=== PATIENT | male | born 1935 | race Caucasian/White ===

== ENCOUNTER 2017-01-03 06:16 | Inpatient (IN) | payer MEDICARE, BC ==
--- NOTE | 2017-01-03 06:34 | ED ---
General Adult HPI - General Source: EMS, RN notes reviewed Mode of arrival: EMS Limitations: no limitations <Bipin Reed - Last Filed: 01/03/17 07:06> <Wyatt Nichols - Last Filed: 01/03/17 08:20> - General Chief complaint: Syncope Stated complaint: Syncope Time Seen by Provider: 01/03/17 06:20 - History of Present Illness Initial comments: This is an 81-year-old male who presents emergency department with past medical history significant for having had a heart attack in the past. Patient also has a pacer defibrillator in place. Patient states today he was sitting in a chair became very lightheaded and thinks he passed out for a few seconds. Patient states he came to is extremely nauseated and vomited times one very small amount of what he describes as bile. Patient states he is still mildly nauseated but he did receive Zofran on the way in by the EMS crew. Patient denies any palpitations or chest pain. Patient denies any shortness of breath or difficulty breathing. Patient denies any abdominal pain. Patient denies nausea vomiting or diarrhea recently. Patient states she was sweating at the time. Patient denies any lightheadedness or dizziness currently. Patient denies any headache patient denies any numbness or weakness. (Bipin Reed) - Related Data Home Medications Medication Instructions Recorded Confirmed Cholecalciferol [Vitamin D3] 1,000 unit PO DAILY 06/15/15 01/03/17 Esomeprazole Magnesium [NexIUM] 40 mg PO DAILY 06/15/15 01/03/17 Etanercept [Enbrel] 50 mg SQ WE 06/15/15 01/03/17 Leflunomide [Arava] 20 mg PO DAILY 06/15/15 01/03/17 Losartan [Cozaar] 50 mg PO DAILY 06/15/15 01/03/17 Multivitamins, Thera [Multivitamin 1 tab PO DAILY 06/15/15 01/03/17 (formulary)] [place]-3 Fatty Acids/Fish Oil [Fish 1 cap PO DAILY 06/15/15 01/03/17 Oil 1,000 mg Softgel] Simvastatin [Zocor] 40 mg PO HS 06/15/15 01/03/17 Apixaban [Eliquis] 2.5 mg PO BID 01/03/17 01/03/17 Aspirin EC [Ecotrin Low Dose] 81 mg PO DAILY 01/03/17 01/03/17 Carvedilol [Coreg] 6.25 mg PO BID 01/03/17 01/03/17 Furosemide [Lasix] 20 mg PO Q48H 01/03/17 01/03/17 Previous Rx's Medication Instructions Recorded Spironolactone [Aldactone] 25 mg PO DAILY #90 tablet 10/12/15 Allergies Allergy/AdvReac Type Severity Reaction Status Date / Time Penicillins Allergy Rash/Hives Verified 01/03/17 07:57 Review of Systems ROS Other: All systems not noted in ROS Statement are negative. <Bipin Reed - Last Filed: 01/03/17 07:06> ROS Other: All systems not noted in ROS Statement are negative. <Wyatt Nichols - Last Filed: 01/03/17 08:20> ROS Statement: Those systems with pertinent positive or pertinent negative responses have been documented in the HPI. Past Medical History Past Medical History: Hyperlipidemia, Hypertension Additional Past Medical History / Comment(s): arthritis; HYPOGLYCEMIA History of Any Multi-Drug Resistant Organisms: None Reported Past Surgical History: Orthopedic Surgery Additional Past Surgical History / Comment(s): varicose vein Past Anesthesia/Blood Transfusion Reactions: No Reported Reaction Past Psychological History: No Psychological Hx Reported Smoking Status: Never smoker Past Alcohol Use History: None Reported Past Drug Use History: None Reported - Past Family History Father History Unknown: Yes Mother Family Medical History: Cancer Additional Family Medical History / Comment(s): unsure what kind Brother(s) Family Medical History: Cancer, Coronary Artery Disease (CAD) Additional Family Medical History / Comment(s): pacemaker. from heart complications. unsure what kind <Bipin Reed - Last Filed: 01/03/17 07:06> General Exam Limitations: no limitations <Bipin Reed - Last Filed: 01/03/17 07:06> <Wyatt Nichols - Last Filed: 01/03/17 08:20> - General Exam Comments Initial Comments: GENERAL: Patient is well-developed and well-nourished. Patient is nontoxic and well- hydrated and is in mild distress. ENT: Neck is soft and supple. No significant lymphadenopathy is noted. Oropharynx is clear. Moist mucous membranes. Neck has full range of motion without eliciting any pain. EYES: The sclera were anicteric and conjunctiva were pink and moist. Extraocular movements were intact and pupils were equal round and reactive to light. Eyelids were unremarkable. PULMONARY: Patient's crackles in the left base. states he has asbestosis CARDIOVASCULAR: There is a regular rate and rhythm without any murmurs gallops or rubs. ABDOMEN: Soft and nontender with normal bowel sounds. No palpable organomegaly was noted. There is no palpable pulsatile mass. SKIN: Skin is clear with no lesions or rashes and otherwise unremarkable. NEUROLOGIC: Patient is alert and oriented x3. Cranial nerves II through XII are grossly intact. Motor and sensory are also intact. Normal speech, volume and content. Symmetrical smile. MUSCULOSKELETAL: Normal extremities with adequate strength and full range of motion. No lower extremity swelling or edema. No calf tenderness. LYMPHATICS: No significant lymphadenopathy is noted PSYCHIATRIC: Normal psychiatric evaluation. Normal interpersonal interactions appears functionally intact in deals appropriately with others. No signs of depression. No signs of anxiety. (Bipin Reed) Medical Decision Making - Lab Data Result diagrams: 01/03/17 06:38 <Bipin Reed - Last Filed: 01/03/17 07:06> - Lab Data Result diagrams: 01/03/17 06:38 01/03/17 06:38 - Radiology Data Radiology results: image reviewed (Chest x-ray shows interstitial prominence. Previous chest x-ray reviewed with some similar findings.) <Wyatt Nichols - Last Filed: 01/03/17 08:20> - Medical Decision Making EKG shows atrial paced rhythm at 50 bpm GA interval is 208 6 QRS is 166 QT intervals 538 QTC is 490. Patient's EKG shows no ST segment elevation or depression. Patient has a right bundle branch block. Dr. Nichols be taking over the care of this patient at 7 AM (Bipin Reed) Patient reevaluated and resting comfortably in bed with no complaints at this time. Patient and family updated on results and plan. Case discussed in detail with Dr. Cerda, who will admit for Dr. Gray. (Wyatt Nichols) - Lab Data Lab Results 01/03/17 01/03/17 01/03/17 Range/Units 06:38 06:38 06:38 WBC 3.5 L (3.8-10.6) k/uL RBC 4.11 L (4.30-5.90) m/uL Hgb 13.3 (13.0-17.5) gm/dL Hct 41.8 (39.0-53.0) % MCV 101.8 H (80.0-100.0) fL MCH 32.4 (25.0-35.0) pg MCHC 31.8 (31.0-37.0) g/dL RDW 13.8 (11.5-15.5) % Plt Count 139 L (150-450) k/uL Neutrophils % 52 % Lymphocytes % 28 % Monocytes % 9 % Eosinophils % 7 % Basophils % 1 % Neutrophils # 1.8 (1.3-7.7) k/uL Lymphocytes # 1.0 (1.0-4.8) k/uL Monocytes # 0.3 (0-1.0) k/uL Eosinophils # 0.2 (0-0.7) k/uL Basophils # 0.0 (0-0.2) k/uL Macrocytosis Slight PT (9.0-12.0) sec INR (<1.1) APTT (22.0-30.0) sec Sodium 141 (137-145) mmol/L Potassium 4.1 (3.5-5.1) mmol/L Chloride 107 (98-107) mmol/L Carbon Dioxide 26 (22-30) mmol/L Anion Gap 8 mmol/L BUN 23 H (9-20) mg/dL Creatinine 0.80 (0.66-1.25) mg/dL Est GFR (MDRD) Af Amer >60 (>60 ml/min/1.73 sqM) Est GFR (MDRD) Non-Af >60 (>60 ml/min/1.73 sqM) Glucose 126 H (74-99) mg/dL Calcium 9.4 (8.4-10.2) mg/dL Magnesium 1.9 (1.6-2.3) mg/dL Total Bilirubin 0.6 (0.2-1.3) mg/dL AST 23 (17-59) U/L ALT 32 (21-72) U/L Alkaline Phosphatase 56 (38-126) U/L Total Creatine Kinase 111 (55-170) U/L CK-MB (CK-2) 2.9 H* (0.0-2.4) ng/mL CK-MB (CK-2) Rel Index 2.6 Troponin I <0.012 (0.000-0.034) ng/mL Total Protein 6.6 (6.3-8.2) g/dL Albumin 3.3 L (3.5-5.0) g/dL 01/03/17 Range/Units 06:38 WBC (3.8-10.6) k/uL RBC (4.30-5.90) m/uL Hgb (13.0-17.5) gm/dL Hct (39.0-53.0) % MCV (80.0-100.0) fL MCH (25.0-35.0) pg MCHC (31.0-37.0) g/dL RDW (11.5-15.5) % Plt Count (150-450) k/uL Neutrophils % % Lymphocytes % % Monocytes % % Eosinophils % % Basophils % % Neutrophils # (1.3-7.7) k/uL Lymphocytes # (1.0-4.8) k/uL Monocytes # (0-1.0) k/uL Eosinophils # (0-0.7) k/uL Basophils # (0-0.2) k/uL Macrocytosis PT 10.8 (9.0-12.0) sec INR 1.1 (<1.1) APTT 22.2 (22.0-30.0) sec Sodium (137-145) mmol/L Potassium (3.5-5.1) mmol/L Chloride (98-107) mmol/L Carbon Dioxide (22-30) mmol/L Anion Gap mmol/L BUN (9-20) mg/dL Creatinine (0.66-1.25) mg/dL Est GFR (MDRD) Af Amer (>60 ml/min/1.73 sqM) Est GFR (MDRD) Non-Af (>60 ml/min/1.73 sqM) Glucose (74-99) mg/dL Calcium (8.4-10.2) mg/dL Magnesium (1.6-2.3) mg/dL Total Bilirubin (0.2-1.3) mg/dL AST (17-59) U/L ALT (21-72) U/L Alkaline Phosphatase (38-126) U/L Total Creatine Kinase (55-170) U/L CK-MB (CK-2) (0.0-2.4) ng/mL CK-MB (CK-2) Rel Index Troponin I (0.000-0.034) ng/mL Total Protein (6.3-8.2) g/dL Albumin (3.5-5.0) g/dL Disposition <Bipin Reed - Last Filed: 01/03/17 07:06> Decision Time: 08:20 <Wyatt Nichols - Last Filed: 01/03/17 08:20> Clinical Impression: Syncope Disposition: ADMITTED IP TO THIS [facility] Referrals: Faith Gray MD [Primary Care Provider] - 1-2 days
[2017-01-03 06:58] LABS: Basophils % (A) 1 %; CH 32.1; CHCM 31.7; Eosinophils # (A) 0.2 k/uL (0-0.7); Eosinophils % (A) 7 %; HCT 41.8 % (39.0-53.0); HDW 2.48; HGB 13.3 gm/dL (13.0-17.5); Luc # (Auto) 0.13; Luc % (Auto) 4; Lymphocytes % (A) 28 %; MCH 32.4 pg (25.0-35.0); MCHC 31.8 g/dL (31.0-37.0); MCV 101.8 fL (80.0-100.0); Macrocytosis Slight; Mean Platelet Volume 6.7; Monocytes # (A) 0.3 k/uL (0-1.0); Monocytes % (A) 9 %; Neutrophils # (A) 1.8 k/uL (1.3-7.7); Neutrophils % (A) 52 %; RBC 4.11 m/uL (4.30-5.90); RDW 13.8 % (11.5-15.5); WBC 3.5 k/uL (3.8-10.6); WBC (Perox) 3.25
[2017-01-03 07:12] LABS: ALT 32 U/L (21-72); AST 23 U/L (17-59); Alkaline Phosphatase 56 U/L (38-126); Anion Gap 8 mmol/L; Blood Urea Nitrogen 23 mg/dL (9-20); Calcium 9.4 mg/dL (8.4-10.2); Carbon Dioxide 26 mmol/L (22-30); Chloride 107 mmol/L (98-107); Glucose 126 mg/dL (74-99); INR 1.1 (<1.1); Magnesium 1.9 mg/dL (1.6-2.3); Non-African American GFR(MDRD) >60 (>60 ml/min/1.73 sqM); Partial Thromboplastin Time 22.2 sec (22.0-30.0); Potassium 4.1 mmol/L (3.5-5.1); Prothrombin Time 10.8 sec (9.0-12.0); Sodium 141 mmol/L (137-145); Total Bilirubin 0.6 mg/dL (0.2-1.3); Total Protein 6.6 g/dL (6.3-8.2)
--- NOTE | 2017-01-03 07:15 | XR ---
EXAM: XR Chest, 2 Views CLINICAL HISTORY: Syncope, history of defib TECHNIQUE: Frontal and lateral views of the chest. COMPARISON: Chest x-ray 10/12/15 FINDINGS: Lungs: Low lung volumes. Vascular interstitial prominence. Bibasilar lung atelectasis/airspace disease. Pleural space: No pleural effusion or pneumothorax. Heart: Stable cardiomegaly. Mediastinum: Unremarkable. Bones/joints: Unremarkable. Tubes, lines and devices: Stable pacemaker. IMPRESSION: Vascular and interstitial prominence, May be edema or infiltrate. Consider CHF.
[2017-01-03 07:23] LABS: Creatine Kinase 111 U/L (55-170)
[2017-01-03 07:35] LABS: Troponin I <0.012 ng/mL (0.000-0.034)
[2017-01-03 07:44] LABS: Creatine Kinase MB 2.9 ng/mL (0.0-2.4)
[2017-01-03] MEDS ORDERED: NALOXONE 0.4 MG/ML 1 ML VIAL IV PRN (08:20)
[2017-01-03] MEDS: SODIUM CHLORIDE 0.9% 1,000 ML IV SCH (09:04)
--- NOTE | 2017-01-03 09:06 | CT ---
EXAMINATION TYPE: CT brain wo con DATE OF EXAM: 01/03/2017 COMPARISON: NONE INDICATION: Syncope DLP: 1049 mGycm, Automated exposure control for dose reduction was used. CONTRAST: None CT of the brain is performed utilizing 3 mm thick sections through the posterior fossa and 3 mm thick sections through the remaining calvarium. Study is performed within 24 hours of arrival to the hosp [facility]. No abnormal hyperdensity is present to suggest an acute intracranial hemorrhage. No mass lesion is evident. No acute infarcts are evident. There is some mild periventricular white matter hypodensity, likely on the basis of chronic white matter ischemic changes. This may be slightly more focal just superior to the posterior left lateral ventricle body within the centrum semiovale.. Ventricles and sulci are prominent for the patient age. Paranasal sinuses and mastoid air cells within the [id number] are clear. IMPRESSIONS: 1. Chronic appearing white matter ischemic changes with mild age-related atrophy.
--- NOTE | 2017-01-03 10:49 | P.CRDCN ---
History of Present Illness Consult date: 01/03/17 Requesting physician: Virgen Mai Consult reason: sycope Chief complaint: Syncope History of present illness: This is a pleasant 81-year-old gentleman who follows regularly with Dr. Guevara in the office. Patient has a known history of paroxysmal atrial fibrillation, ischemic cardiomyopathy with prior AICD implantation, hyperlipidemia, coronary artery disease, hypertension, psoriasis, peripheral vascular disease, most recent cardiac catheterization was performed in May 2015 which revealed moderate disease in the mid right coronary artery, mild intimal disease in the LAD, severely impaired left ventricular systolic function medical therapy advised at that time. Most recent echo was performed in November 2015 which revealed an ejection fraction of 35%. Patient states he's been doing fairly well at home overall. This morning the patient was sitting on the edge of his bed, getting dressed, he states he leaned forward to pull his socks on, sat back up and became dizzy, he states that at that time he passed out, he does feel that he was out completely and yet somewhat new still what he was doing. Patient did not lose bowel or bladder function, he was alert and oriented 3 upon wakening. EKG on arrival here showed atrial paced rhythm with a heart rate of 50. Chest x-ray revealed vascular and interstitial prominence. Possible CHF. CAT scan of the brain revealed chronic appearing white matter change with mild age-related atrophy. Blood pressure 120/70 with a heart rate in the 50s. 94% on room air. White blood cell count 3.5, hgb 13.3 , platelet count 139, potassium 4.1, BUN 23, creatinine 0.8. First troponin is negative, BNP 235. Blood pressure on arrival 118/70 with a heart rate in the 50s. Blood pressure this morning 120/70. Past Medical History Past Medical History: Coronary Artery Disease (CAD), Heart Failure, GI Bleed, Hyperlipidemia, Hypertension, Myocardial Infarction (PA), Osteoarthritis (OA), Rheumatoid Arthritis (RA) Additional Past Medical History / Comment(s): HYPOGLYCEMIA, ischemic cardiomyopathy/mild CHF, varicosities, presyncope, RA-pt receives Inbrel on Tue. Last Myocardial Infarction Date:: 2008 History of Any Multi-Drug Resistant Organisms: None Reported Past Surgical History: AICD, Heart Catheterization, Heart Catheterization With Stent, Pacemaker Additional Past Surgical History / Comment(s): AICD/pacer 09/2015, 11/2008 PCI with stent, 2014 cardiac cath, colonoscopy. Past Anesthesia/Blood Transfusion Reactions: No Reported Reaction Date of Last Stent Placement:: 2008 Type of Cardiac Device: Permanent Pacemaker, AICD Device Placement Date:: 10/12/15 Past Psychological History: No Psychological Hx Reported Additional Psychological History / Comment(s): Pt resides with his spouse. He is independent. Smoking Status: Former smoker Past Alcohol Use History: None Reported Additional Past Alcohol Use History / Comment(s): Pt states he smoked for a couple of years ([id number]) Past Drug Use History: None Reported - Past Family History Father History Unknown: Yes Mother Family Medical History: Cancer Additional Family Medical History / Comment(s): Mother had ovarian cancer followed by lung cancer. Brother(s) Family Medical History: Cancer, Coronary Artery Disease (CAD) Additional Family Medical History / Comment(s): pacemaker. from heart complications. unsure what kind Medications and Allergies Home Medications Medication Instructions Recorded Confirmed Type Cholecalciferol [Vitamin D3] 1,000 unit PO DAILY 06/15/15 01/03/17 History Esomeprazole Magnesium [NexIUM] 40 mg PO DAILY 06/15/15 01/03/17 History Etanercept [Enbrel] 50 mg SQ WE 06/15/15 01/03/17 History Leflunomide [Arava] 20 mg PO DAILY 06/15/15 01/03/17 History Losartan [Cozaar] 50 mg PO DAILY 06/15/15 01/03/17 History Multivitamins, Thera [Multivitamin 1 tab PO DAILY 06/15/15 01/03/17 History (formulary)] [place]-3 Fatty Acids/Fish Oil [Fish 1 cap PO DAILY 06/15/15 01/03/17 History Oil 1,000 mg Softgel] Simvastatin [Zocor] 40 mg PO HS 06/15/15 01/03/17 History Apixaban [Eliquis] 2.5 mg PO BID 01/03/17 01/03/17 History Aspirin EC [Ecotrin Low Dose] 81 mg PO DAILY 01/03/17 01/03/17 History Carvedilol [Coreg] 6.25 mg PO BID 01/03/17 01/03/17 History Furosemide [Lasix] 20 mg PO Q48H 01/03/17 01/03/17 History Allergies Allergy/AdvReac Type Severity Reaction Status Date / Time Penicillins Allergy Rash/Hives Verified 01/03/17 07:57 Physical Exam Vitals: Vital Signs Temp Pulse Pulse Resp BP BP Pulse Ox 01/03/17 09:50 96.6 F L 66 20 119/71 94 L 01/03/17 09:04 96.7 F L 58 L 18 119/75 95 01/03/17 07:52 96.8 F L 56 L 18 108/74 99 01/03/17 06:32 54 L 01/03/17 06:17 97.1 F L 56 L 18 118/79 94 L Intake and Output 01/02/17 01/03/17 01/03/17 22:59 06:59 14:59 Other: Weight 90.718 kg PHYSICAL EXAMINATION: HEENT: Head is atraumatic, normocephalic. Pupils equal, round. Neck is supple. There is no elevated jugular venous pressure. HEART EXAMINATION: Heart S1 and S2 systolic murmur is heard. CHEST EXAMINATION: Lungs are clear to auscultation and precussion. No chest wall tenderness is noted on palpation or with deep breathing. ABDOMEN: Soft, nontender. Bowel sounds are heard. No organomegaly noted. EXTREMITIES: 2+ peripheral pulses with no evidence of peripheral edema and no calf tenderness noted. NEUROLOGIC patient is awake, alert and oriented -3. . Results 01/03/17 06:38 01/03/17 06:38 Cardiac Enzymes 01/03/17 01/03/17 Range/Units 06:38 06:38 AST 23 (17-59) U/L CK-MB (CK-2) 2.9 H* (0.0-2.4) ng/mL Troponin I <0.012 (0.000-0.034) ng/mL Coagulation 01/03/17 Range/Units 06:38 PT 10.8 (9.0-12.0) sec APTT 22.2 (22.0-30.0) sec CBC 01/03/17 Range/Units 06:38 WBC 3.5 L (3.8-10.6) k/uL RBC 4.11 L (4.30-5.90) m/uL Hgb 13.3 (13.0-17.5) gm/dL Hct 41.8 (39.0-53.0) % Plt Count 139 L (150-450) k/uL Comprehensive Metabolic Panel 01/03/17 Range/Units 06:38 Sodium 141 (137-145) mmol/L Potassium 4.1 (3.5-5.1) mmol/L Chloride 107 (98-107) mmol/L Carbon Dioxide 26 (22-30) mmol/L BUN 23 H (9-20) mg/dL Creatinine 0.80 (0.66-1.25) mg/dL Glucose 126 H (74-99) mg/dL Calcium 9.4 (8.4-10.2) mg/dL AST 23 (17-59) U/L ALT 32 (21-72) U/L Alkaline Phosphatase 56 (38-126) U/L Total Protein 6.6 (6.3-8.2) g/dL Albumin 3.3 L (3.5-5.0) g/dL Current Medications Generic Name Dose Route Start Last Admin Trade Name Freq PRN Reason Stop Dose Admin Sodium Chloride 1,000 mls @ 20 mls/hr 01/03/17 08:30 01/03/17 09:04 Saline 0.9% IV 20 mls/hr .Q24H [place] Administration Naloxone HCl 0.2 mg 01/03/17 08:20 Narcan IV Q2M PRN Opioid Reversal Intake and Output 01/02/17 01/03/17 01/03/17 22:59 06:59 14:59 Other: Weight 90.718 kg 01/03/17 06:38 01/03/17 06:38 EKG Interpretations (text) EKG shows atrial paced rhythm with slow ventricular response Assessment and Plan Plan: Assessment and plan #1 syncope, rule out cardiac causes. #2 ischemic cardio myopathy with prior AICD implantation #3 hypertension #4 hyperlipidemia #5 paroxysmal atrial fibrillation #6 coronary artery disease with prior LAD stenting in 2008,a cardiac catheterization was performed here in 2014 medical therapy was advised. #7 psoriasis Plan We will check orthostatic blood pressure and heart rate every shift. Check free T4 and TSH. We will also interrogate the patient's AICD. Resume Aldactone , Zocor, Cozaar, Ecotrin 81 mg, and Eliquis. Obtain echocardiogram with Doppler study. Further recommendations to follow. DNP note has been reviewed, I agree with a documented findings and plan of care. Patient was seen and examined.
--- NOTE | 2017-01-03 11:11 | P.PN ---
Progress Note - Text this is an addendum to the dictated cardiology consultation. The patient has a known history of CAD, ischemic cardiomyopathy and paroxysmal atrial fibrillation who presented with a presyncopal episode occurred after he bent down to put on his socks. He had no chest discomfort, his breathing has been stable and he had no discharge from his device. On presentation he is in sinus mechanism and there is no documented arrhythmia. His level of activity has been stable without any change or limitations. His physical examination shows clear lungs with sinus mechanism and minimal edema His EKG and his enzymes are unchanged. His presentation most likely represents a presyncopal episode from orthostatic hypotension, associated with nausea and diaphoresis and most likely exacerbated by the hot weather. We will interrogate his device and obtain an echocardiogram with Doppler and depending on the findings further recommendations will be made. Thank you for this consult we will follow with you.
--- NOTE | 2017-01-03 12:23 | P.HPIM ---
History of Present Illness H&P Date: 01/03/17 Chief Complaint: Almost passed out This is a 81-year-old with a known past medical history of ischemic cardiomyopathy with an EF of 30-35% with AICD placement. He also has a history of hypertension, hyperlipidemia, rheumatoid arthritis paroxysmal atrial fibrillation, coronary artery disease with cardiac stent, myocardial infarction , and psoriasis. Patient presents to the emergency room this morning after having a near syncopal episode. Patient reports he's been feeling well that up and took a shower. He said down to put on his socks. He bent over to the socks on became very dizzy and lightheaded and thoughts that he was going to pass out. He sat back up. The dizziness subsided. However he became very nauseous and had sweating. He was concerned and came into the emergency room for evaluation. Cardiology and neurology have been consulted. A computed tomography scan of the brain was completed showing no acute changes. There is chronic-appearing white matter ischemic changes with mild age related atrophy. EKG shows an atrial paced rhythm with prolonged AV conduction. Right bundle shane block. Troponin was negative 1. Cardiology is following. A echo and carotid ultrasound have been ordered. He is on telemetry. His AICD is scheduled for interrogation today. And orthostatics will be checked. Patient reports this episode occurred before he took his morning medications. He had not yet. He at times does have episodes of hypoglycemia he is not a diabetic. His glucose on admission was 126. Patient denies any fever or chills. Denies any vomiting. Denies any burning with urination. Denies any change in bowel movements. Denies any cough or sore throat. Review of Systems Please refer to HPI otherwise unremarkable Past Medical History Past Medical History: Coronary Artery Disease (CAD), Heart Failure, GI Bleed, Hyperlipidemia, Hypertension, Myocardial Infarction ([place]), Osteoarthritis (OA), Rheumatoid Arthritis (RA) Additional Past Medical History / Comment(s): HYPOGLYCEMIA, ischemic cardiomyopathy/mild CHF, varicosities, presyncope, RA-pt receives Inbrel on Tue. Asbestosis exposure Last Myocardial Infarction Date:: 2008 History of Any Multi-Drug Resistant Organisms: None Reported Past Surgical History: AICD, Heart Catheterization, Heart Catheterization With Stent, Pacemaker Additional Past Surgical History / Comment(s): AICD/pacer 09/2015, 11/2008 PCI with stent, 2014 cardiac cath, colonoscopy. Past Anesthesia/Blood Transfusion Reactions: No Reported Reaction Date of Last Stent Placement:: 2008 Type of Cardiac Device: Permanent Pacemaker, AICD Device Placement Date:: 10/12/15 Past Psychological History: No Psychological Hx Reported Additional Psychological History / Comment(s): Pt resides with his spouse. He is independent. Smoking Status: Former smoker Past Alcohol Use History: None Reported Additional Past Alcohol Use History / Comment(s): Pt states he smoked for a couple of years ([id number]) Past Drug Use History: None Reported - Past Family History Father History Unknown: Yes Mother Family Medical History: Cancer Additional Family Medical History / Comment(s): Mother had ovarian cancer followed by lung cancer. Brother(s) Family Medical History: Cancer, Coronary Artery Disease (CAD) Additional Family Medical History / Comment(s): pacemaker. from heart complications. unsure what kind Medications and Allergies Home Medications Medication Instructions Recorded Confirmed Type Cholecalciferol [Vitamin D3] 1,000 unit PO DAILY 06/15/15 01/03/17 History Esomeprazole Magnesium [NexIUM] 40 mg PO DAILY 06/15/15 01/03/17 History Etanercept [Enbrel] 50 mg SQ WE 06/15/15 01/03/17 History Leflunomide [Arava] 20 mg PO DAILY 06/15/15 01/03/17 History Losartan [Cozaar] 50 mg PO DAILY 06/15/15 01/03/17 History Multivitamins, Thera [Multivitamin 1 tab PO DAILY 06/15/15 01/03/17 History (formulary)] [place]-3 Fatty Acids/Fish Oil [Fish 1 cap PO DAILY 06/15/15 01/03/17 History Oil 1,000 mg Softgel] Simvastatin [Zocor] 40 mg PO HS 06/15/15 01/03/17 History Apixaban [Eliquis] 2.5 mg PO BID 01/03/17 01/03/17 History Aspirin EC [Ecotrin Low Dose] 81 mg PO DAILY 01/03/17 01/03/17 History Carvedilol [Coreg] 6.25 mg PO BID 01/03/17 01/03/17 History Furosemide [Lasix] 20 mg PO Q48H 01/03/17 01/03/17 History Allergies Allergy/AdvReac Type Severity Reaction Status Date / Time Penicillins Allergy Rash/Hives Verified 01/03/17 07:57 Physical Exam Vitals: Vital Signs Temp Pulse Pulse Resp BP BP Pulse Ox 01/03/17 11:43 97 F L 58 L 18 109/74 96 01/03/17 09:50 96.6 F L 66 18 119/71 94 L 01/03/17 09:04 96.7 F L 58 L 18 119/75 95 01/03/17 07:52 96.8 F L 56 L 18 108/74 99 01/03/17 06:32 54 L 01/03/17 06:17 97.1 F L 56 L 18 118/79 94 L Intake and Output 01/02/17 01/03/17 01/03/17 22:59 06:59 14:59 Other: Weight 90.718 kg Head normocephalic Neck supple no JVD no carotid bruits Lungs crackles at bases Heart regular rate and rhythm S1-S2, no rub or gallop Abdomen is soft nontender nondistended positive bowel sounds no hepatosplenomegaly Extremities no edema Neuro alert and orientated to 3 Results CBC & Chem 7: 01/03/17 06:38 01/03/17 06:38 Labs: Abnormal Lab Results - Last 24 Hours (Table) 01/03/17 01/03/17 01/03/17 Range/Units 06:38 06:38 06:38 WBC 3.5 L (3.8-10.6) k/uL RBC 4.11 L (4.30-5.90) m/uL MCV 101.8 H (80.0-100.0) fL Plt Count 139 L (150-450) k/uL BUN 23 H (9-20) mg/dL Glucose 126 H (74-99) mg/dL CK-MB (CK-2) 2.9 H* (0.0-2.4) ng/mL Albumin 3.3 L (3.5-5.0) g/dL Thrombosis Risk Factor Assmnt - Choose All That Apply Any of the Below Risk Factors Present?: Yes Each Factor Represents 1 point: Obesity (BMI >25), Varicose veins Other Risk Factors: Yes Each Risk Factor Represents 3 Points: Age 75 years or older Other congenital or acquired thrombophilia - If yes, enter type in comment: No Thrombosis Risk Factor Assessment Total Risk Factor Score: 5 Thrombosis Risk Factor Assessment Level: High Risk Assessment and Plan Plan: 1. Near syncopal episode: Computed tomography scan of the brain showing no acute changes. Echo and carotid ultrasound of been ordered. Continue with telemetry monitoring. Cardiology and neurology have been consulted. Agree with checking for orthostatic blood pressure 2. History of ischemic cardiomyopathy with an EF of 30-35% status post AICD. Patient scheduled for AICD interrogation today 3. History of paroxysmal atrial fibrillation anticoagulated with Eliquis 4. Essential hypertension: Blood pressure stable continue current medications 5. Hyperlipidemia 6. Rheumatoid arthritis 7. Coronary artery disease with previous cardiac stents and myocardial infarction 8. GERD on Nexium at home GI prophylaxis Protonix and DVT prophylaxis Eliquis Time with Patient: Greater than 30 (Greater than 50% of the total time spent in counseling and coordination of care.I performed an examination of the patient and discussed their management with the physician [employer]. I have reviewed the Physician [employer]'s notes and agree with the documented findings and plan of care)
--- NOTE | 2017-01-03 12:27 | US ---
EXAMINATION TYPE: US carotid duplex BILAT DATE OF EXAM: 01/03/2017 COMPARISON: NONE CLINICAL HISTORY: syncope. EXAM MEASUREMENTS: RIGHT: Peak Systolic Velocity (PSV) cm/sec ----- Right CCA: 45.0 ----- Right ICA: 53.9 ----- Right ECA: 50.2 ICA/CCA ratio: 1.2 RIGHT: End Diastole cm/sec ----- Right CCA: 12.2 ----- Right ICA: 26.7 ----- Right ECA: 15.1 LEFT: Peak Systolic Velocity (PSV) cm/sec ----- Left CCA: 42.4 ----- Left ICA: 59.8 ----- Left ECA: 44.3 ICA/CCA ratio: 1.4 LEFT: End Diastole cm/sec ----- Left CCA: 14.7 ----- Left ICA: 59.8 ----- Left ECA: 44.3 VERTEBRALS (direction of flow): Right Vertebral: Antegrade Left Vertebral: Antegrade Moderate plaque, no significant velocity elevations IMPRESSION: 1. Moderate atherosclerotic plaque bilaterally with no significant hemodynamic stenosis.
[2017-01-03] MEDS: ASPIRIN 81 MG CHEW PO SCH (13:08)
[2017-01-03] MEDS: APIXABAN 2.5 MG TABLET PO SCH ×2 (13:08→21:45)
[2017-01-03] MEDS: CARVEDILOL 6.25 MG TAB PO SCH ×2 (13:09→18:33)
[2017-01-03] MEDS: PANTOPRAZOLE 40 MG TABLET PO SCH (13:09)
[2017-01-03] MEDS: LEFLUNOMIDE 20 MG TAB PO SCH (13:09)
[2017-01-03] MEDS: SPIRONOLACTONE 25 MG TAB PO SCH (13:09)
[2017-01-03] MEDS: LOSARTAN 50 MG TAB PO SCH (17:05)
[2017-01-03] MEDS ORDERED: ATORVASTATIN 20 MG TAB PO SCH (21:00)
--- NOTE | 2017-01-03 23:23 | CONS ---
DATE OF CONSULTATION: 01/03/2017 CHIEF COMPLAINT: Presyncope. HISTORY OF PRESENT ILLNESS: The patient is a pleasant 81-year-old male who is being evaluated by the neurology service per the request of Dr. Mai for a near-syncopal episode. The patient states that he had just finished showering, and when he bent forward to pull his socks on, he felt very dizzy. He describes the dizziness as a lightheaded and disequilibrium sensation without any significant vertigo. When he sat back up, his symptoms slowly resolved, but then he felt somewhat nauseous and started sweating, which prompted his visit to the emergency room. At the time of my evaluation, he is lying in his bed and appears to be in no acute distress. He denies any recurrence of any syncopal or pre-syncopal episodes since his arrival. A CT scan of the brain was done which showed generalized atrophy and small-vessel ischemic changes. His carotid Doppler showed no hemodynamically significant stenosis. His CBC showed mild leukopenia at 3.5 and mild thrombocytopenia at 139. His comprehensive metabolic profile, cardiac enzymes and TSH were normal. PAST MEDICAL HISTORY: 1. Coronary artery disease. 2. Heart failure. 3. History of gastrointestinal bleeding. 4. Dyslipidemia. 5. Atrial fibrillation. 6. Myocardial infarction. 7. Hypertension. 8. Arthritis. 9. Ischemic cardiomyopathy. 10. Pacemaker implantation. 11. Coronary artery stent placement. SOCIAL HISTORY: The patient is a former smoker. He denies any alcohol or drug use. FAMILY HISTORY: Positive for cancer and heart disease. HOME MEDICATIONS: Reviewed in the chart. ALLERGIES: PENICILLIN. REVIEW OF SYSTEMS: As mentioned above and otherwise negative. PHYSICAL EXAM: Vital signs show a temperature of 97.6, pulse 56, respiration 20, blood pressure 110/67. Orthostatics were done and it showed some orthostatic hypotension with a drop in the systolic blood pressure from 119 to 106 and a drop in the diastolic blood pressure from 74 to 58. GENERAL APPEARANCE: The patient is a well-developed elderly male who appears to be in no acute distress. HEENT: Normocephalic, atraumatic. No facial asymmetry is seen. Neck is supple with no masses felt. CARDIOVASCULAR: Bradycardic rate with a normal rhythm. ABDOMEN: Nontender, nondistended. EXTREMITIES: No edema or clubbing. NEUROLOGICAL EXAM: The patient is awake and oriented x3. Speech and language are normal. Strength is full in all 4 extremities. Sensory exam is normal to light touch in all 4 extremities. No facial asymmetry is seen on cranial nerve testing. IMPRESSION: 1. Pre-syncopal spell. 2. Atrial fibrillation. 3. Bradycardia. 4. Orthostatic hypotension. RECOMMENDATIONS: The patient's symptoms are more consistent with cardiovascular etiology. His dizziness occurred with positional change and he still has some orthostatic hypotension at this time. Cardiology has been consulted, as the patient does have multiple comorbidities with cardiac issues and he does have a pacemaker defibrillator implanted. An EEG has been ordered. I will continue to follow with you. Further recommendations to follow. Thank you for allowing me to participate in the care of your patient. If you have any questions, please feel free to contact me.
[2017-01-04 06:17] LABS: Aty Lym Flag Slight; CHCM 31.7; HCT 39.1 % (39.0-53.0); HDW 2.47; HGB 12.2 gm/dL (13.0-17.5); MCH 31.8 pg (25.0-35.0); MCHC 31.3 g/dL (31.0-37.0); MCV 101.4 fL (80.0-100.0); Macrocytosis Slight; Mean Platelet Volume 6.6; RBC 3.86 m/uL (4.30-5.90); RDW 13.9 % (11.5-15.5); WBC 3.9 k/uL (3.8-10.6); WBC (Perox) 3.75
[2017-01-04 06:23] LABS: ALT 28 U/L (21-72); AST 21 U/L (17-59); Alkaline Phosphatase 45 U/L (38-126); Anion Gap 6 mmol/L; Blood Urea Nitrogen 18 mg/dL (9-20); Carbon Dioxide 25 mmol/L (22-30); Chloride 108 mmol/L (98-107); Glucose 93 mg/dL (74-99); Non-African American GFR(MDRD) >60 (>60 ml/min/1.73 sqM); Potassium 4.3 mmol/L (3.5-5.1); Sodium 139 mmol/L (137-145); Total Bilirubin 0.7 mg/dL (0.2-1.3); Total Protein 6.1 g/dL (6.3-8.2)
[2017-01-04] MEDS: PANTOPRAZOLE 40 MG TABLET PO SCH (06:37)
[2017-01-04] MEDS: CARVEDILOL 6.25 MG TAB PO SCH (06:37)
[2017-01-04] MEDS ORDERED: PANTOPRAZOLE 40 MG TABLET PO SCH (07:30)
[2017-01-04 07:48] LABS: Add Differential Manual Differential
[2017-01-04 07:51] LABS: Manual Review Performed; Nucleated Red Blood Cells 0 /100 WBC (0-0); Total Cells Counted 100
[2017-01-04] MEDS ORDERED: CHOLECALCIFEROL 1,000 UNIT TAB PO SCH (09:00)
[2017-01-04] MEDS ORDERED: FUROSEMIDE 20 MG TAB PO SCH (09:00)
[2017-01-04] MEDS: SODIUM CHLORIDE 0.9% 1,000 ML IV SCH (09:18)
[2017-01-04] MEDS: APIXABAN 2.5 MG TABLET PO SCH (09:28)
[2017-01-04] MEDS: ASPIRIN 81 MG CHEW PO SCH (09:28)
[2017-01-04] MEDS: SPIRONOLACTONE 25 MG TAB PO SCH (09:29)
[2017-01-04] MEDS: LOSARTAN 50 MG TAB PO SCH (09:29)
[2017-01-04] MEDS: LEFLUNOMIDE 20 MG TAB PO SCH (09:29)
[2017-01-04 10:41] VITALS: RESP 16
[2017-01-04] MEDS ORDERED: MULTIVITAMINS, THERA 1 EACH TAB PO SCH (12:00)
--- NOTE | 2017-01-04 13:21 | P.DS ---
Providers Date of admission: 01/03/17 08:20 Expected date of discharge: 01/04/17 Attending physician: Virgen Mai Consults: 01/03/17 08:21 Consult Physician Urgent Consulting Provider: Zuhair Guevara Consult Reason/Comments: syncope Do you want consulting provider notified?: Yes Consult Physician Urgent Consulting Provider: Alvin Mackey Consult Reason/Comments: syncope Do you want consulting provider notified?: Yes Primary care physician: [facility] Course: Diagnoses on discharge 1. Near syncopal episode: Computed tomography scan of the brain showing no acute changes. Echo and carotid ultrasound of been ordered. Continue with telemetry monitoring. Cardiology and neurology have been consulted. Agree with checking for orthostatic blood pressure Patient had AICD interrogated no abnormality seen he was cleared by cardiology for discharge 2. History of ischemic cardiomyopathy with an EF of 30-35% status post AICD. Patient scheduled for AICD interrogation today 3. History of paroxysmal atrial fibrillation anticoagulated with Eliquis 4. Essential hypertension: Blood pressure stable continue current medications 5. Hyperlipidemia 6. Rheumatoid arthritis 7. Coronary artery disease with previous cardiac stents and myocardial infarction 8. GERD on Nexium at home Hospital course This is a 81-year-old with a known past medical history of ischemic cardiomyopathy with an EF of 30-35% with AICD placement. He also has a history of hypertension, hyperlipidemia, rheumatoid arthritis paroxysmal atrial fibrillation, coronary artery disease with cardiac stent, myocardial infarction , and psoriasis. Patient presents to the emergency room this morning after having a near syncopal episode. Patient reports he's been feeling well that up and took a shower. He said down to put on his socks. He bent over to the socks on became very dizzy and lightheaded and thoughts that he was going to pass out. He sat back up. The dizziness subsided. However he became very nauseous and had sweating. He was concerned and came into the emergency room for evaluation. Cardiology and neurology have been consulted. A computed tomography scan of the brain was completed showing no acute changes. There is chronic-appearing white matter ischemic changes with mild age related atrophy. EKG shows an atrial paced rhythm with prolonged AV conduction. Right bundle shane block. Troponin was negative 1. Cardiology is following. A echo and carotid ultrasound have been ordered. He is on telemetry. His AICD was interrogated and there was no abnormality seen he was cleared by cardiology for discharge patient was also evaluated by neurology Dr. Mackey. Patient was feeling well he was able to ambulate without any dizziness he was discharged home on 01/04/2017 he will be followed in our office as outpatient within a week for further evaluation Plan - Discharge Summary New Discharge Prescriptions: Continue Cholecalciferol [Vitamin D3] 1,000 unit PO DAILY Simvastatin [Zocor] 40 mg PO HS Leflunomide [Arava] 20 mg PO DAILY Esomeprazole Magnesium [NexIUM] 40 mg PO DAILY Losartan [Cozaar] 50 mg PO DAILY [place]-3 Fatty Acids/Fish Oil [Fish Oil 1,000 mg Softgel] 1 cap PO DAILY Multivitamins, Thera [Multivitamin (formulary)] 1 tab PO DAILY Etanercept [Enbrel] 50 mg SQ WE Spironolactone [Aldactone] 25 mg PO DAILY #90 tablet Carvedilol [Coreg] 6.25 mg PO BID Apixaban [Eliquis] 2.5 mg PO BID Aspirin EC [Ecotrin Low Dose] 81 mg PO DAILY Furosemide [Lasix] 20 mg PO Q48H Discharge Medication List Cholecalciferol [Vitamin D3] 1,000 unit PO DAILY 06/15/15 [History] Esomeprazole Magnesium [NexIUM] 40 mg PO DAILY 06/15/15 [History] Etanercept [Enbrel] 50 mg SQ WE 06/15/15 [History] Leflunomide [Arava] 20 mg PO DAILY 06/15/15 [History] Losartan [Cozaar] 50 mg PO DAILY 06/15/15 [History] Multivitamins, Thera [Multivitamin (formulary)] 1 tab PO DAILY 06/15/15 [History ] [place]-3 Fatty Acids/Fish Oil [Fish Oil 1,000 mg Softgel] 1 cap PO DAILY [History] Simvastatin [Zocor] 40 mg PO HS 06/15/15 [History] Spironolactone [Aldactone] 25 mg PO DAILY #90 tablet 10/12/15 [Rx] Apixaban [Eliquis] 2.5 mg PO BID 01/03/17 [History] Aspirin EC [Ecotrin Low Dose] 81 mg PO DAILY 01/03/17 [History] Carvedilol [Coreg] 6.25 mg PO BID 01/03/17 [History] Furosemide [Lasix] 20 mg PO Q48H 01/03/17 [History] Follow up Appointment(s)/Referral(s): Alvin Mackey MD [STAFF PHYSICIAN] - 1 Week Faith Gray MD [Primary Care Provider] - 1-2 days
--- NOTE | 2017-01-04 15:09 | P.PN ---
Subjective Principal diagnosis: Syncope This is a pleasant 81-year-old gentleman who follows regularly with Dr. uGevara in the office. Patient has a known history of paroxysmal atrial fibrillation, ischemic cardiomyopathy with prior AICD implantation, hyperlipidemia, coronary artery disease, hypertension, psoriasis, peripheral vascular disease, most recent cardiac catheterization was performed in May 2015 which revealed moderate disease in the mid right coronary artery, mild intimal disease in the LAD, severely impaired left ventricular systolic function medical therapy advised at that time. Most recent echo was performed in November 2015 which revealed an ejection fraction of 35%. Patient states he's been doing fairly well at home overall. This morning the patient was sitting on the edge of his bed, getting dressed, he states he leaned forward to pull his socks on, sat back up and became dizzy, he states that at that time he passed out, he does feel that he was out completely and yet somewhat new still what he was doing. Patient did not lose bowel or bladder function, he was alert and oriented 3 upon wakening. EKG on arrival here showed atrial paced rhythm with a heart rate of 50. Chest x-ray revealed vascular and interstitial prominence. Possible CHF. CAT scan of the brain revealed chronic appearing white matter change with mild age-related atrophy. 01/04/2017 Patient seen and examined this morning, denies any further dizziness or lightheadedness, hemodynamically stable. No evidence of any orthostasis. His pacemaker was interrogated and did not reveal any evidence of non-capture. From cardiology's perspective he may be able to be discharged once he is cleared by his primary care doctor along with neurology. Objective - Vital Signs Vital signs: Vital Signs Temp 96.2 F L 01/04/17 08:00 Pulse 60 01/04/17 11:36 Resp 16 01/04/17 11:36 BP 108/70 01/04/17 11:36 Pulse Ox 98 01/04/17 11:36 Intake & Output 01/03/17 01/04/17 01/04/17 18:59 06:59 18:59 Intake Total 400 655 Output Total 400 1550 Balance 0 -1550 655 Weight 86.5 kg Intake: IV 160 175 Sodium Chloride 0.9% 1, 160 175 000 ml @ 20 mls/hr IV . Q24H [facility] Rx#:[id number] Oral 240 480 Output: Urine 400 1550 Other: Voiding Method Urinal Urinal # Voids 1 - Exam PHYSICAL EXAMINATION: HEENT: Head is atraumatic, normocephalic. Pupils equal, round. Neck is supple. There is no elevated jugular venous pressure. HEART EXAMINATION: Heart S1 and S2 systolic murmur is heard. CHEST EXAMINATION: Lungs are clear to auscultation and precussion. No chest wall tenderness is noted on palpation or with deep breathing. ABDOMEN: Soft, nontender. Bowel sounds are heard. No organomegaly noted. EXTREMITIES: 2+ peripheral pulses with no evidence of peripheral edema and no calf tenderness noted. NEUROLOGIC patient is awake, alert and oriented -3. - Labs CBC & Chem 7: 01/04/17 05:33 01/04/17 05:33 Labs: Abnormal Lab Results - Last 24 Hours (Table) 01/04/17 01/04/17 Range/Units 05:33 05:33 RBC 3.86 L (4.30-5.90) m/uL Hgb 12.2 L (13.0-17.5) gm/dL MCV 101.4 H (80.0-100.0) fL Plt Count 127 L (150-450) k/uL Chloride 108 H (98-107) mmol/L Total Protein 6.1 L (6.3-8.2) g/dL Albumin 2.9 L (3.5-5.0) g/dL Assessment and Plan Plan: Assessment and plan #1 syncope, rule out cardiac causes. #2 ischemic cardio myopathy with prior AICD implantation #3 hypertension #4 hyperlipidemia #5 paroxysmal atrial fibrillation #6 coronary artery disease with prior LAD stenting in 2008,a cardiac catheterization was performed here in 2014 medical therapy was advised. #7 psoriasis Plan Device was interrogated and did not reveal any evidence of non-capture. No evidence of any orthostatic hypotension. Patient may be able to be discharged whenever cleared by the primary care doctor and neurology. We will make him a follow-up appointment to see Dr. Guevara in the office post discharge. DNP note has been reviewed, I agree with a documented findings and plan of care. Patient was seen and examined.
--- NOTE | 2017-01-04 15:59 | P.PN ---
Subjective Principal diagnosis: Presyncope This is a pleasant 81-year-old male continuing be evaluated by the neurology service. Again he had an episode of near syncope. There was some dizziness and lightheadedness without christiane syncope. After these symptoms resolve he started to feel nauseous and sweaty. He was then brought to the [facility] emergency room. A computed tomography scan of the brain showed generalized atrophy and small vessel ischemic changes but no acute intracranial abnormalities. His carotid Doppler showed no hemodynamically significant stenosis. At the time of my examination he is resting very comfortably in his bed and is asymptomatic. An EEG was ordered but not yet performed. Objective - Vital Signs Vital signs: Vital Signs Temp 96.2 F L 01/04/17 08:00 Pulse 60 01/04/17 11:36 Resp 16 01/04/17 11:36 BP 108/70 01/04/17 11:36 Pulse Ox 98 01/04/17 11:36 Intake & Output 01/03/17 01/04/17 01/04/17 18:59 06:59 18:59 Intake Total 400 655 Output Total 400 1550 Balance 0 -1550 655 Weight 86.5 kg Intake: IV 160 175 Sodium Chloride 0.9% 1, 160 175 000 ml @ 20 mls/hr IV . Q24H [facility] Rx#:[id number] Oral 240 480 Output: Urine 400 1550 Other: Voiding Method Urinal Urinal # Voids 1 - Constitutional General appearance: Present: average body habitus, cooperative, no acute distress - EENT Eyes: Present: EOMI, PERRLA. Absent: abnormal pupil, ptosis ENT: Present: hearing grossly normal - Neck Neck: Present: normal ROM. Absent: rigidity - Respiratory Respiratory: negative: prolonged expiration, prolonged inspiration - Cardiovascular Rhythm: regular - Gastrointestinal General gastrointestinal: Absent: distended, tenderness - Neurologic Neurologic Comment(s): Patient is alert awake and oriented 3. Speech and language are normal. There is no lateralizing weakness. There is no sensory deficit. Is no facial asymmetry. Seizure-like activities are seen. - Labs CBC & Chem 7: 01/04/17 05:33 01/04/17 05:33 Labs: Abnormal Lab Results - Last 24 Hours (Table) 01/04/17 01/04/17 Range/Units 05:33 05:33 RBC 3.86 L (4.30-5.90) m/uL Hgb 12.2 L (13.0-17.5) gm/dL MCV 101.4 H (80.0-100.0) fL Plt Count 127 L (150-450) k/uL Chloride 108 H (98-107) mmol/L Total Protein 6.1 L (6.3-8.2) g/dL Albumin 2.9 L (3.5-5.0) g/dL Assessment and Plan (1) CAD (coronary artery disease) Status: Chronic (2) Dehydration Status: Acute (3) HTN (hypertension) Status: Chronic (4) History of implantable cardioverter-defibrillator (ICD) placement Status: Chronic (5) Hyperlipemia Status: Chronic (6) Near syncope Status: Resolved Plan: We Believe this episode was purely cardiogenic in nature. Cardiology will continue to follow. An EEG has been ordered. Barring any unforeseen abnormalities he is cleared from a neurological standpoint. Next I have performed a history and physical on the above patient. I have reviewed the above note, and agree.
[2017-01-04 18:01] VITALS: BP 129/62; PULSE 62; TEMP 97.9
--- NOTE | 2017-01-06 10:14 | ECHOF ---
Referral Reason:syncope MEASUREMENTS -------- HEIGHT: 185.4 cm WEIGHT: 90.7 kg BP: 119/75 RVIDd: 3.6 cm (< 3.3) IVSd: 1.2 cm (0.6 - 1.1) LVIDd: 5.5 cm (3.9 - 5.3) LVPWd: 1.3 cm (0.6 - 1.1) IVSs: 1.9 cm LVIDs: 4.4 cm LVPWs: 1.5 cm LAESV Index (A-L): 27.45 ml/m Ao Diam: 4.2 cm (2.0 - 3.7) AV Cusp: 2.3 cm (1.5 - 2.6) LA Diam: 2.5 cm (2.7 - 3.8) MV EXCURSION: 18.048 mm (> 18.000) MV EF SLOPE: 61 mm/s (70 - 150) EPSS: 1.4 cm MV E Rashaad: 0.49 m/s MV DecT: 416 ms MV A Rashaad: 0.74 m/s MV E/A Ratio: 0.66 RAP: 5.00 mmHg RVSP: 44.18 mmHg FINDINGS -------- Sinus rhythm. This was a technically adequate study. There is mild concentric left ventricular hypertrophy. Overall left ventricular systolic function is mild-moderately impaired with, an EF between 40 - 45 %. Mid to basal inferiorlateral is hypokinetic The right ventricle is normal in size and function. LA is midly dilated 29-33ml/m2. The right atrium is normal in size. Electronic pacemaker lead seen in the right ventricular cavity. The aortic valve is trileaflet and appears structurally normal. Trace amount of aortic regurgitation. There is no evidence of aortic stenosis. The mitral valve leaflets are mildly thickened. There is trace to mild mitral regurgitation. Trace tricuspid regurgitation present. There is mild pulmonary hypertension. The right ventricular systolic pressure, as measured by Doppler, is 44.18mmHg. Trace/mild (physiologic) pulmonic regurgitation. The aortic root size is normal. IVC Not well visulized. The pericardium is normal. There is no pericardial effusion. CONCLUSIONS -------- 1. Sinus rhythm. 2. There is trace to mild mitral regurgitation. 3. Trace tricuspid regurgitation present. 4. There is mild pulmonary hypertension. 5. The right ventricular systolic pressure, as measured by Doppler, is 44.18mmHg. 6. Trace/mild (physiologic) pulmonic regurgitation. 7. The aortic root size is normal. 8. IVC Not well visulized. 9. There is no pericardial effusion. 10. There is mild concentric left ventricular hypertrophy. 11. Overall left ventricular systolic function is mild-moderately impaired with, an EF between 40 - 45 %. 12. Mid to basal inferiorlateral is hypokinetic 13. LA is midly dilated 29-33ml/m2. 14. Electronic pacemaker lead seen in the right ventricular cavity. 15. The aortic valve is trileaflet and appears structurally normal. 16. Trace amount of aortic regurgitation. 17. The mitral valve leaflets are mildly thickened. RANGE MANAGEMENT SPECIALIST: Norman Veras RDCS
== END 2017-01-04 18:07 | disposition home or self-care (01) | DRG 312 ==
LOC: EC 06:16 → 6SEL 08:20
PROVIDERS: ADMIT Internal Medicine; ATTEND Internal Medicine
PROC: 4B02XSZ Measurement of Cardiac Pacemaker, External Approach (ICD-10-PCS; principal; 2017-01-03)
DX: I95.1 Orthostatic hypotension (principal); D69.6 Thrombocytopenia, unspecified; E86.0 Dehydration; R00.1 Bradycardia, unspecified; I11.0 Hypertensive heart disease with heart failure; I25.5 Ischemic cardiomyopathy; I48.0 Paroxysmal atrial fibrillation; I50.9 Heart failure, unspecified; I25.10 Atherosclerotic heart disease of native coronary artery without angina pectoris; D72.819 Decreased white blood cell count, unspecified; E78.5 Hyperlipidemia, unspecified; I25.2 Old myocardial infarction; I45.10 Unspecified right bundle-branch block; I73.9 Peripheral vascular disease, unspecified; K21.9 Gastro-esophageal reflux disease without esophagitis; L40.9 Psoriasis, unspecified; M06.9 Rheumatoid arthritis, unspecified; M19.90 Unspecified osteoarthritis, unspecified site; Z77.090 Contact with and (suspected) exposure to asbestos; Z79.01 Long term (current) use of anticoagulants; Z79.899 Other long term (current) drug therapy; Z79.82 Long term (current) use of aspirin; Z88.0 Allergy status to penicillin; Z87.891 Personal history of nicotine dependence; Z95.5 Presence of coronary angioplasty implant and graft; Z95.810 Presence of automatic (implantable) cardiac defibrillator; Z82.49 Family history of ischemic heart disease and other diseases of the circulatory system
CPT/HCPCS: 36415; 70450; 71020; 80053; 82550; 82553; 83735; 83880; 84439; 84443; 84484; 85025; 85610; 85730; 93005; 93306; 93880; 99285

== ENCOUNTER 2017-09-16 11:51 | Observation (INO) | payer MEDICARE, BC ==
[2017-09-16] MEDS ORDERED: SODIUM CHLORIDE 0.9% 1,000 ML IV STA (12:55)
--- NOTE | 2017-09-16 13:00 | ED ---
General Adult HPI - General Chief complaint: Syncope Stated complaint: Syncope Time Seen by Provider: 09/16/17 12:50 Source: patient, family, RN notes reviewed Mode of arrival: wheelchair Limitations: no limitations - History of Present Illness Initial comments: Patient is a pleasant 82-year-old male presenting to the emergency department following syncopal episode. Patient got dizzy and then passed out. Patient has had 3 or 4 episodes of dizziness over the past couple of days with just the one syncopal episode. Patient symptom-free at this time. No chest pain or dyspnea. No headache or confusion. Patient does have some right ear pain. Patient does not recall the episode well. - Related Data Home Medications Medication Instructions Recorded Confirmed Cholecalciferol [Vitamin D3] 1,000 unit PO DAILY 06/15/15 09/16/17 Esomeprazole Magnesium [NexIUM] 40 mg PO DAILY 06/15/15 09/16/17 Etanercept [Enbrel] 50 mg SQ WE 06/15/15 09/16/17 Leflunomide [Arava] 20 mg PO DAILY 06/15/15 09/16/17 Losartan [Cozaar] 50 mg PO DAILY 06/15/15 09/16/17 Multivitamins, Thera [Multivitamin 1 tab PO DAILY 06/15/15 09/16/17 (formulary)] [place]-3 Fatty Acids/Fish Oil [Fish 1 cap PO DAILY 06/15/15 09/16/17 Oil 1,000 mg Softgel] Simvastatin [Zocor] 40 mg PO HS 06/15/15 09/16/17 Apixaban [Eliquis] 2.5 mg PO DAILY 01/03/17 09/16/17 Aspirin EC [Ecotrin Low Dose] 81 mg PO DAILY 01/03/17 09/16/17 Carvedilol [Coreg] 6.25 mg PO BID 01/03/17 09/16/17 Furosemide [Lasix] 20 mg PO Q48H 01/03/17 09/16/17 Albuterol Inhaler [Ventolin Hfa 2 puff INHALATION RT-Q6H PRN 09/16/17 09/16/17 Inhaler] Previous Rx's Medication Instructions Recorded Spironolactone [Aldactone] 25 mg PO DAILY #90 tablet 10/12/15 Allergies Allergy/AdvReac Type Severity Reaction Status Date / Time Penicillins Allergy Rash/Hives Verified 09/16/17 13:35 Review of Systems ROS Statement: Those systems with pertinent positive or pertinent negative responses have been documented in the HPI. ROS Other: All systems not noted in ROS Statement are negative. Constitutional: Denies: fever Eyes: Denies: eye pain ENT: Denies: throat pain Respiratory: Denies: cough, dyspnea Cardiovascular: Denies: chest pain Endocrine: Denies: fatigue Gastrointestinal: Denies: abdominal pain Genitourinary: Denies: dysuria Musculoskeletal: Denies: back pain Skin: Denies: rash Neurological: Denies: confusion Past Medical History Past Medical History: Coronary Artery Disease (CAD), Heart Failure, GI Bleed, Hyperlipidemia, Hypertension, Myocardial Infarction (NM), Osteoarthritis (OA), Rheumatoid Arthritis (RA) Additional Past Medical History / Comment(s): Asbestosis, coronary artery disease, CHF with an ejection fraction of 20-25%, hypertension, hyperlipidemia, previous myocardial infarction, rheumatoid arthritis, degenerative arthritis, chronic immunosuppression with Enbrel and the patient receives weekly Enbrel every Tuesday and Arava regarding his rheumatoid arthritis, chronic varicose veins, previous AICD placement for severe cardiomyopathy Last Myocardial Infarction Date:: 2008 History of Any Multi-Drug Resistant Organisms: None Reported Past Surgical History: AICD, Heart Catheterization, Heart Catheterization With Stent, Pacemaker Additional Past Surgical History / Comment(s): AICD/pacer 09/2015, 11/2008 PCI with stent, 2014 cardiac cath, colonoscopy. Past Anesthesia/Blood Transfusion Reactions: No Reported Reaction Date of Last Stent Placement:: 2008 Type of Cardiac Device: Permanent Pacemaker, AICD Device Placement Date:: 10/12/15 Past Psychological History: No Psychological Hx Reported Smoking Status: Former smoker Past Alcohol Use History: None Reported Past Drug Use History: None Reported - Past Family History Father History Unknown: Yes Mother Family Medical History: Cancer Additional Family Medical History / Comment(s): Mother had ovarian cancer followed by lung cancer. Brother(s) Family Medical History: Cancer, Coronary Artery Disease (CAD) Additional Family Medical History / Comment(s): pacemaker. from heart complications. unsure what kind General Exam Limitations: no limitations General appearance: alert, in no apparent distress Head exam: Present: atraumatic, normocephalic Eye exam: Present: normal appearance, PERRL, EOMI ENT exam: Present: normal oropharynx, TM's normal bilaterally Neck exam: Present: normal inspection. Absent: tenderness Respiratory exam: Present: normal lung sounds bilaterally Cardiovascular Exam: Present: regular rate, normal rhythm GI/Abdominal exam: Present: soft. Absent: tenderness Extremities exam: Present: normal inspection Neurological exam: Present: alert Psychiatric exam: Present: normal affect, normal mood Skin exam: Present: normal color Course Vital Signs 09/16/17 12:17 Temperature 97.6 F Pulse Rate 81 Respiratory 18 Rate Blood Pressure 92/69 O2 Sat by Pulse 96 Oximetry EKG Findings - EKG Comments: EKG Findings:: Sinus rhythm 92. GA 232. QRS 150. QT 406. QTc 502. Left axis. Right bundle branch block. Nonspecific ST-T. Medical Decision Making - Medical Decision Making Patient reevaluated and resting comfortably in bed. Patient symptom-free at this time. Patient and updated on results and plan. Case was discussed in detail with Dr. Gray, who will admit his patient with cardiology consult. - Lab Data Result diagrams: 09/16/17 12:52 09/16/17 12:52 Lab Results 09/16/17 09/16/17 09/16/17 Range/Units 12:52 12:52 12:52 WBC 4.7 (3.8-10.6) k/uL RBC 4.01 L (4.30-5.90) m/uL Hgb 12.5 L (13.0-17.5) gm/dL Hct 40.3 (39.0-53.0) % MCV 100.5 H (80.0-100.0) fL MCH 31.1 (25.0-35.0) pg MCHC 30.9 L (31.0-37.0) g/dL RDW 13.8 (11.5-15.5) % Plt Count 202 (150-450) k/uL Neutrophils % 51 % Lymphocytes % 37 % Monocytes % 7 % Eosinophils % 1 % Basophils % 1 % Neutrophils # 2.4 (1.3-7.7) k/uL Lymphocytes # 1.7 (1.0-4.8) k/uL Monocytes # 0.3 (0-1.0) k/uL Eosinophils # 0.1 (0-0.7) k/uL Basophils # 0.0 (0-0.2) k/uL Hypochromasia Slight Macrocytosis Slight PT (9.0-12.0) sec INR (<1.2) APTT (22.0-30.0) sec Sodium 136 L (137-145) mmol/L Potassium 4.8 (3.5-5.1) mmol/L Chloride 105 (98-107) mmol/L Carbon Dioxide 25 (22-30) mmol/L Anion Gap 6 mmol/L BUN 31 H (9-20) mg/dL Creatinine 0.60 L (0.66-1.25) mg/dL Est GFR (MDRD) Af Amer >60 (>60 ml/min/1.73 sqM) Est GFR (MDRD) Non-Af >60 (>60 ml/min/1.73 sqM) Glucose 90 (74-99) mg/dL Calcium 9.2 (8.4-10.2) mg/dL Total Bilirubin 0.6 (0.2-1.3) mg/dL AST 22 (17-59) U/L ALT 20 L (21-72) U/L Alkaline Phosphatase 65 (38-126) U/L Total Creatine Kinase 85 (55-170) U/L CK-MB (CK-2) 1.8 (0.0-2.4) ng/mL CK-MB (CK-2) Rel Index 2.1 Troponin I 0.020 (0.000-0.034) ng/mL Total Protein 6.2 L (6.3-8.2) g/dL Albumin 2.8 L (3.5-5.0) g/dL Urine Color Urine Appearance (Clear) Urine pH (5.0-8.0) Ur Specific [place] (1.001-1.035) Urine Protein (Negative) Urine Glucose (UA) (Negative) Urine Ketones (Negative) Urine Blood (Negative) Urine Nitrite (Negative) Urine Bilirubin (Negative) Urine Urobilinogen (<2.0) mg/dL Ur Leukocyte Esterase (Negative) 09/16/17 09/16/17 Range/Units 12:52 14:05 WBC (3.8-10.6) k/uL RBC (4.30-5.90) m/uL Hgb (13.0-17.5) gm/dL Hct (39.0-53.0) % MCV (80.0-100.0) fL MCH (25.0-35.0) pg MCHC (31.0-37.0) g/dL RDW (11.5-15.5) % Plt Count (150-450) k/uL Neutrophils % % Lymphocytes % % Monocytes % % Eosinophils % % Basophils % % Neutrophils # (1.3-7.7) k/uL Lymphocytes # (1.0-4.8) k/uL Monocytes # (0-1.0) k/uL Eosinophils # (0-0.7) k/uL Basophils # (0-0.2) k/uL Hypochromasia Macrocytosis PT 10.4 (9.0-12.0) sec INR 1.1 (<1.2) APTT 23.1 (22.0-30.0) sec Sodium (137-145) mmol/L Potassium (3.5-5.1) mmol/L Chloride (98-107) mmol/L Carbon Dioxide (22-30) mmol/L Anion Gap mmol/L BUN (9-20) mg/dL Creatinine (0.66-1.25) mg/dL Est GFR (MDRD) Af Amer (>60 ml/min/1.73 sqM) Est GFR (MDRD) Non-Af (>60 ml/min/1.73 sqM) Glucose (74-99) mg/dL Calcium (8.4-10.2) mg/dL Total Bilirubin (0.2-1.3) mg/dL AST (17-59) U/L ALT (21-72) U/L Alkaline Phosphatase (38-126) U/L Total Creatine Kinase (55-170) U/L CK-MB (CK-2) (0.0-2.4) ng/mL CK-MB (CK-2) Rel Index Troponin I (0.000-0.034) ng/mL Total Protein (6.3-8.2) g/dL Albumin (3.5-5.0) g/dL Urine Color Yellow Urine Appearance Clear (Clear) Urine pH 6.0 (5.0-8.0) Ur Specific [place] 1.018 (1.001-1.035) Urine Protein Negative (Negative) Urine Glucose (UA) Negative (Negative) Urine Ketones Negative (Negative) Urine Blood Negative (Negative) Urine Nitrite Negative (Negative) Urine Bilirubin Negative (Negative) Urine Urobilinogen <2.0 (<2.0) mg/dL Ur Leukocyte Esterase Negative (Negative) - Radiology Data Radiology results: report reviewed (Computed tomography scan of the brain shows stable exam. Atrophy and probable chronic small vessel ischemia.), image reviewed (Chest x-ray shows chronic interstitial fibrosis and pleural parenchymal scarring.) Disposition Clinical Impression: Syncope Disposition: ADMITTED IP TO THIS HOSP Referrals: Faith Gray MD [Primary Care Provider] - 1-2 days Decision Time: 14:47
[2017-09-16 13:24] LABS: ALT 20 U/L (21-72); AST 22 U/L (17-59); Albumin 2.8 g/dL (3.5-5.0); Alkaline Phosphatase 65 U/L (38-126); Anion Gap 6 mmol/L; Blood Urea Nitrogen 31 mg/dL (9-20); Calcium 9.2 mg/dL (8.4-10.2); Carbon Dioxide 25 mmol/L (22-30); Chloride 105 mmol/L (98-107); Glucose 90 mg/dL (74-99); Potassium 4.8 mmol/L (3.5-5.1); Sodium 136 mmol/L (137-145); Total Bilirubin 0.6 mg/dL (0.2-1.3); Total Protein 6.2 g/dL (6.3-8.2)
[2017-09-16 13:32] LABS: INR 1.1 (<1.2); Partial Thromboplastin Time 23.1 sec (22.0-30.0); Prothrombin Time 10.4 sec (9.0-12.0)
[2017-09-16 13:35] LABS: Basophils % (A) 1 %; Eosinophils # (A) 0.1 k/uL (0-0.7); Eosinophils % (A) 1 %; HCT 40.3 % (39.0-53.0); HGB 12.5 gm/dL (13.0-17.5); Hypochromasia Slight; Lymphocytes # (A) 1.7 k/uL (1.0-4.8); Lymphocytes % (A) 37 %; MCH 31.1 pg (25.0-35.0); MCHC 30.9 g/dL (31.0-37.0); MCV 100.5 fL (80.0-100.0); Macrocytosis Slight; Mean Platelet Volume 6.6; Monocytes # (A) 0.3 k/uL (0-1.0); Monocytes % (A) 7 %; Neutrophils # (A) 2.4 k/uL (1.3-7.7); Neutrophils % (A) 51 %; Platelet Count 202 k/uL (150-450); RBC 4.01 m/uL (4.30-5.90); RDW 13.8 % (11.5-15.5); WBC 4.7 k/uL (3.8-10.6)
--- NOTE | 2017-09-16 13:50 | CT ---
EXAMINATION TYPE: CT brain wo con DATE OF EXAM: 09/16/2017 COMPARISON: Prior CT brain 01/03/2017 HISTORY: Multiple falls with syncopal episodes. Dizziness CT DLP: 1115 mGycm Automated exposure control for dose reduction was used. Helical acquisition through the brain. FINDINGS: No significant interval change. Calvarium is intact. Inflammatory change present within the right max illary sinus is noted. Mastoid air cells are well aerated. There is no evident hemorrhage or hydrocep halus. Cortical atrophy is likely age-related. Periventricular white matter low-attenuation is again noted. IMPRESSION: STABLE EXAM. AGE-RELATED CHANGES OF ATROPHY AND PROBABLE CHRONIC SMALL VESSEL ISCHEMIA.
--- NOTE | 2017-09-16 13:56 | XR ---
EXAMINATION TYPE: XR chest 2V DATE OF EXAM: 09/16/2017 COMPARISON: 08/17/2017 HISTORY: Syncope TECHNIQUE: Frontal and lateral views of the chest are obtained. FINDINGS: Reticular opacities and honeycombing at the lung bases are indicative of pulmonary fibrosi s. Multifocal linear pleural parenchymal scarring is redemonstrated. Cardiac silhouette is mildly enl arged. Dual lead left-sided cardiac device is unchanged. No pneumothorax or effusion. Multilevel mild degenerative changes of the thoracic spine are seen. No new focal consolidation. IMPRESSION: Chronic changes of interstitial fibrosis and pleural parenchymal scarring with no new fo jillian consolidation to suggest pneumonia.
[2017-09-16 14:03] LABS: Creatine Kinase MB 1.8 ng/mL (0.0-2.4); Troponin I 0.02 ng/mL (0.000-0.034)
[2017-09-16 14:29] LABS: Appearance,Urine Clear (Clear); Bilirubin,Urine Negative (Negative); Blood,Urine Negative (Negative); Color,Urine Yellow; Glucose,Urine (UA) Negative (Negative); Ketones,Urine Negative (Negative); Leukocyte Esterase,Urine Negative (Negative); Protein,Urine Negative (Negative); Specific Gravity,Urine 1.018 (1.001-1.035); Urobilinogen,Urine <2.0 mg/dL (<2.0)
[2017-09-16] MEDS ORDERED: SODIUM CHLORIDE 0.9% 500 ML IV STA (14:49)
[2017-09-16] MEDS ORDERED: NALOXONE 0.4 MG/ML 1 ML VIAL IV PRN (14:49)
[2017-09-16] MEDS: SODIUM CHLORIDE 0.9% 1,000 ML IV SCH (16:47)
[2017-09-16] MEDS ORDERED: ALBUTEROL NEBULIZED 2.5 MG/3 ML INHALATION PRN (17:26)
[2017-09-16 20:08] LABS: Creatine Kinase MB 1.4 ng/mL (0.0-2.4); Troponin I 0.015 ng/mL (0.000-0.034)
[2017-09-16] MEDS: ATORVASTATIN 20 MG TAB PO SCH (20:32)
[2017-09-16] MEDS: LEFLUNOMIDE 20 MG TAB PO SCH (20:32)
[2017-09-17 01:08] LABS: Creatine Kinase 57 U/L (55-170)
[2017-09-17 01:21] LABS: Creatine Kinase MB 1.1 ng/mL (0.0-2.4); Troponin I <0.012 ng/mL (0.000-0.034)
[2017-09-17] MEDS: SODIUM CHLORIDE 0.9% 1,000 ML IV SCH (06:10)
[2017-09-17] MEDS: PANTOPRAZOLE 40 MG TABLET PO SCH (06:10)
[2017-09-17] MEDS ORDERED: LEFLUNOMIDE 20 MG TAB PO SCH (09:00)
[2017-09-17] MEDS: ASPIRIN 81 MG PO SCH (11:14)
[2017-09-17] MEDS: MULTIVITAMINS, THERA 1 EACH TAB PO SCH (11:14)
[2017-09-17] MEDS: CHOLECALCIFEROL 1,000 UNIT TAB PO SCH (11:14)
[2017-09-17] MEDS: APIXABAN 2.5 MG TABLET PO SCH (11:14)
[2017-09-17 11:37] VITALS: BMI 22.8
--- NOTE | 2017-09-17 12:15 | P.HPIM ---
History of Present Illness H&P Date: 09/17/17 Chief Complaint: Syncope Levi Mohr is an 82-year-old male, well known to my practice who presented to the emergency department after having a syncopal episode. Patient felt dizzy and then passed out. Patient states that he had 3 or 4 episodes of dizziness over the last few days, and had one syncopal episode, where he fell down to the floor in his bedroom he regained consciousness within seconds his was in an adjacent room when she came in patient had regained consciousness there was no tonic or clonic movements, no evidence of any seizure activity, no biting of the tongue, and no loss of any sphincter function. Patient symptom-free at this time. No chest pain or dyspnea. No headache or confusion. Patient does have some right ear pain. Patient does not recall the episode well. Patient was admitted to [facility] in July 2017 at that time he had evidence of acute influenza A infection and evidence of acute track KO bronchitis with sepsis he was treated with Tamiflu and antibiotic at that time. Patient also has a known history of cardiomyopathy with ejection fraction of 20-25% with previous history of AICD placement and history of atrial fibrillation maintained on liquids, he also has a known history of hypertension, hyperlipidemia, asbestosis, and known history of rheumatoid arthritis maintained on Ativan and Enbrel by Dr. Mosqueda. Past Medical History Past Medical History: Coronary Artery Disease (CAD), Heart Failure, GI Bleed, Hyperlipidemia, Hypertension, Myocardial Infarction (MD), Osteoarthritis (OA), Rheumatoid Arthritis (RA) Additional Past Medical History / Comment(s): Asbestosis, coronary artery disease, CHF with an ejection fraction of 20-25%, hypertension, hyperlipidemia, previous myocardial infarction, rheumatoid arthritis, degenerative arthritis, chronic immunosuppression with Enbrel and the patient receives weekly Enbrel every Tuesday and Arava regarding his rheumatoid arthritis, chronic varicose veins, previous AICD placement for severe cardiomyopathy Last Myocardial Infarction Date:: 2008 History of Any Multi-Drug Resistant Organisms: None Reported Past Surgical History: AICD, Heart Catheterization, Heart Catheterization With Stent, Pacemaker Additional Past Surgical History / Comment(s): AICD/pacer 09/2015, 11/2008 PCI with stent, 2014 cardiac cath, colonoscopy. Past Anesthesia/Blood Transfusion Reactions: No Reported Reaction Date of Last Stent Placement:: 2008 Type of Cardiac Device: Permanent Pacemaker, AICD Device Placement Date:: 10/12/15 Past Psychological History: No Psychological Hx Reported Additional Psychological History / Comment(s): Pt resides with his spouse. He is independent. Smoking Status: Former smoker Past Alcohol Use History: None Reported Additional Past Alcohol Use History / Comment(s): Pt states he smoked for a couple of years ([id number]) Past Drug Use History: None Reported - Past Family History Father History Unknown: Yes Mother Family Medical History: Cancer Additional Family Medical History / Comment(s): Mother had ovarian cancer followed by lung cancer. Brother(s) Family Medical History: Cancer, Coronary Artery Disease (CAD) Additional Family Medical History / Comment(s): pacemaker. from heart complications. unsure what kind Medications and Allergies Home Medications Medication Instructions Recorded Confirmed Type Cholecalciferol [Vitamin D3] 1,000 unit PO DAILY 06/15/15 09/16/17 History Esomeprazole Magnesium [NexIUM] 40 mg PO DAILY 06/15/15 09/16/17 History Etanercept [Enbrel] 50 mg SQ WE 06/15/15 09/16/17 History Leflunomide [Arava] 20 mg PO DAILY 06/15/15 09/16/17 History Losartan [Cozaar] 50 mg PO DAILY 06/15/15 09/16/17 History Multivitamins, Thera [Multivitamin 1 tab PO DAILY 06/15/15 09/16/17 History (formulary)] [place]-3 Fatty Acids/Fish Oil [Fish 1 cap PO DAILY 06/15/15 09/16/17 History Oil 1,000 mg Softgel] Simvastatin [Zocor] 40 mg PO HS 06/15/15 09/16/17 History Spironolactone [Aldactone] 25 mg PO DAILY #90 tablet 10/12/15 09/16/17 Rx Apixaban [Eliquis] 2.5 mg PO DAILY 01/03/17 09/16/17 History Aspirin EC [Ecotrin Low Dose] 81 mg PO DAILY 01/03/17 09/16/17 History Carvedilol [Coreg] 6.25 mg PO BID 01/03/17 09/16/17 History Furosemide [Lasix] 20 mg PO Q48H 01/03/17 09/16/17 History Albuterol Inhaler [Ventolin Hfa 2 puff INHALATION RT-Q6H PRN 09/16/17 09/16/17 History Inhaler] Allergies Allergy/AdvReac Type Severity Reaction Status Date / Time Penicillins Allergy Rash/Hives Verified 09/16/17 13:35 Physical Exam Vitals: Vital Signs Temp Pulse Pulse Resp BP BP Pulse Ox 09/17/17 09:35 72 16 109/69 96 09/17/17 04:00 98.0 F 75 18 101/57 94 L 09/17/17 00:00 98.3 F 85 18 103/68 95 09/16/17 21:14 95 09/16/17 20:00 97.0 F L 95 18 108/68 95 09/16/17 16:26 97.9 F 89 16 99/66 96 09/16/17 15:51 87 16 107/74 92 L 09/16/17 14:56 91 16 116/72 95 09/16/17 12:17 97.6 F 81 18 92/69 96 Intake and Output 09/16/17 09/17/17 09/17/17 22:59 06:59 14:59 Intake Total 240 120 Output Total 250 925 350 Balance -10 -925 -230 Intake: Oral 240 120 Output: Urine 250 925 350 Other: Voiding Method Urinal Urinal Urinal # Voids 1 1 Weight 78.8 kg 78.8 kg Patient Weight 09/18/17 06:59 Weight 78.8 kg In general patient is alert and oriented 3 in no apparent distress HEENT head normocephalic and atraumatic Neck is supple no JVD no goiter no lymphadenopathy Chest exam reveals a few scattered crackles no wheezing Cardiac exam reveals regular heart sounds S1 and S2 no gallops no murmurs Abdomen is soft nontender no organomegaly Extremity exam reveals no edema no cyanosis or clubbing Neurological examination reveals no gross focal deficit Results CBC & Chem 7: 09/16/17 12:52 09/16/17 12:52 Labs: Abnormal Lab Results - Last 24 Hours (Table) 09/16/17 09/16/17 Range/Units 12:52 12:52 RBC 4.01 L (4.30-5.90) m/uL Hgb 12.5 L (13.0-17.5) gm/dL MCV 100.5 H (80.0-100.0) fL MCHC 30.9 L (31.0-37.0) g/dL Sodium 136 L (137-145) mmol/L BUN 31 H (9-20) mg/dL Creatinine 0.60 L (0.66-1.25) mg/dL ALT 20 L (21-72) U/L Total Protein 6.2 L (6.3-8.2) g/dL Albumin 2.8 L (3.5-5.0) g/dL Assessment and Plan Plan: Assessment #1 syncopal episode with loss of consciousness for a few seconds #2 multiple episodes of dizziness #3 underlying history of cardiomyopathy #4 underlying history of atrial fibrillation #5 previous history of AICD placement #6 underlying history of rheumatoid arthritis #7 underlying history of hypertension, blood pressure on presentation was 92/69 At this time will obtain echocardiogram results from last admission Will check carotid Doppler Cardiac enzymes are so far negative Cardiology consult was requested Computed tomography scan of the brain was reviewed and there is no evidence of acute intracranial bleeding Will follow closely
--- NOTE | 2017-09-17 12:43 | P.CRDCN ---
History of Present Illness Consult date: 09/17/17 Requesting physician: Faith Gray Reason for Consult (text): syncope Chief complaint: dizziness and syncope History of present illness: This is a pleasant 82-year-old gentleman who follows with Dr. Guevara in the office. She has a history of coronary artery disease, prior [place], prior PCI, severe cardiomyopathy with a known ejection fraction of 20-25%, AICD, hypertension, hyperlipidemia, chronic systolic congestive heart failure, GI bleed, and Rheumatoid arthritis. Presented to the emergency department after an episode of dizziness and syncope. Patient said he was up for about 30 minutes was getting dressed she came dizzy and passed out. Computed tomography scan of the brain showed stable exam, age related changes of atrophy and probable chronic small vessel ischemia. Chest x-ray showed chronic changes of interstitial fibrosis and pleural parenchymal scarring with no new focal consolidation to suggest pneumonia. EKG showed sinus arrhythmia with a right bundle branch block, similar to previous. Laboratory values are reviewed and show normal white blood cell count, hemoglobin of 12.5 and platelet count of 202 normal potassium level, BUN 31 and creatinine 0.6. Troponins were negative 3. Since admission, patient's blood pressure has been running mostly low 100s systolic with the lowest systolic blood pressure of 92 mmHg and the highest systolic blood pressure of 116. Home medications include losartan 50 mg by mouth daily, Aldactone 25 mg by mouth daily, simvastatin 40 mg by mouth daily at bedtime, Lasix 20 mg by mouth every other day, carvedilol 6.25 mg by mouth twice a day, aspirin 81 mg daily, Eliquis 2.5mg daily, Arava and Enbrel. Upon examination, patient is resting comfortably in bed. He denies further complaints of dizziness or syncope. He's had no chest discomfort, shortness of breath, palpitations or edema at home. Past Medical History Past Medical History: Coronary Artery Disease (CAD), Heart Failure, GI Bleed, Hyperlipidemia, Hypertension, Myocardial Infarction (WA), Osteoarthritis (OA), Rheumatoid Arthritis (RA) Additional Past Medical History / Comment(s): Asbestosis, coronary artery disease, CHF with an ejection fraction of 20-25%, hypertension, hyperlipidemia, previous myocardial infarction, rheumatoid arthritis, degenerative arthritis, chronic immunosuppression with Enbrel and the patient receives weekly Enbrel every Tuesday and Arava regarding his rheumatoid arthritis, chronic varicose veins, previous AICD placement for severe cardiomyopathy Last Myocardial Infarction Date:: 2008 History of Any Multi-Drug Resistant Organisms: None Reported Past Surgical History: AICD, Heart Catheterization, Heart Catheterization With Stent, Pacemaker Additional Past Surgical History / Comment(s): AICD/pacer 09/2015, 11/2008 PCI with stent, 2014 cardiac cath, colonoscopy. Past Anesthesia/Blood Transfusion Reactions: No Reported Reaction Date of Last Stent Placement:: 2008 Type of Cardiac Device: Permanent Pacemaker, AICD Device Placement Date:: 10/12/15 Past Psychological History: No Psychological Hx Reported Additional Psychological History / Comment(s): Pt resides with his spouse. He is independent. Smoking Status: Former smoker Past Alcohol Use History: None Reported Additional Past Alcohol Use History / Comment(s): Pt states he smoked for a couple of years ([id number]) Past Drug Use History: None Reported - Past Family History Father History Unknown: Yes Mother Family Medical History: Cancer Additional Family Medical History / Comment(s): Mother had ovarian cancer followed by lung cancer. Brother(s) Family Medical History: Cancer, Coronary Artery Disease (CAD) Additional Family Medical History / Comment(s): pacemaker. from heart complications. unsure what kind Medications and Allergies Home Medications Medication Instructions Recorded Confirmed Type Cholecalciferol [Vitamin D3] 1,000 unit PO DAILY 06/15/15 09/16/17 History Esomeprazole Magnesium [NexIUM] 40 mg PO DAILY 06/15/15 09/16/17 History Etanercept [Enbrel] 50 mg SQ WE 06/15/15 09/16/17 History Leflunomide [Arava] 20 mg PO DAILY 06/15/15 09/16/17 History Losartan [Cozaar] 50 mg PO DAILY 06/15/15 09/16/17 History Multivitamins, Thera [Multivitamin 1 tab PO DAILY 06/15/15 09/16/17 History (formulary)] [place]-3 Fatty Acids/Fish Oil [Fish 1 cap PO DAILY 06/15/15 09/16/17 History Oil 1,000 mg Softgel] Simvastatin [Zocor] 40 mg PO HS 06/15/15 09/16/17 History Spironolactone [Aldactone] 25 mg PO DAILY #90 tablet 10/12/15 09/16/17 Rx Apixaban [Eliquis] 2.5 mg PO DAILY 01/03/17 09/16/17 History Aspirin EC [Ecotrin Low Dose] 81 mg PO DAILY 01/03/17 09/16/17 History Carvedilol [Coreg] 6.25 mg PO BID 01/03/17 09/16/17 History Furosemide [Lasix] 20 mg PO Q48H 01/03/17 09/16/17 History Albuterol Inhaler [Ventolin Hfa 2 puff INHALATION RT-Q6H PRN 09/16/17 09/16/17 History Inhaler] Allergies Allergy/AdvReac Type Severity Reaction Status Date / Time Penicillins Allergy Rash/Hives Verified 09/16/17 13:35 Physical Exam Vitals: Vital Signs Temp Pulse Pulse Resp BP BP Pulse Ox 09/17/17 04:00 98.0 F 75 18 101/57 94 L 09/17/17 00:00 98.3 F 85 18 103/68 95 09/16/17 21:14 95 09/16/17 20:00 97.0 F L 95 18 108/68 95 09/16/17 16:26 97.9 F 89 16 99/66 96 09/16/17 15:51 87 16 107/74 92 L 09/16/17 14:56 91 16 116/72 95 09/16/17 12:17 97.6 F 81 18 92/69 96 Intake and Output 09/16/17 09/17/17 09/17/17 22:59 06:59 14:59 Intake Total 240 Output Total 250 925 Balance -10 -925 Intake: Oral 240 Output: Urine 250 925 Other: Voiding Method Urinal Urinal # Voids 1 Weight 78.8 kg PHYSICAL EXAMINATION: HEENT: Head is atraumatic, normocephalic. Pupils equal, round. Neck is supple. There is no elevated jugular venous pressure. HEART EXAMINATION: Heart sounds regular, S1 and S2 with a systolic murmur. CHEST EXAMINATION: Lungs coarse fibrotic crackles scattered throughout. No chest wall tenderness is noted on palpation or with deep breathing. ABDOMEN: Soft, nontender. Bowel sounds are heard. No organomegaly noted. EXTREMITIES: 1+ peripheral pulses with no evidence of peripheral edema and no calf tenderness noted. NEUROLOGIC patient is awake, alert and oriented x3. . Results 09/16/17 12:52 09/16/17 12:52 Cardiac Enzymes 09/16/1718 09/16/17 Range/Units 12:52 12:52 19:20 AST 22 (17-59) U/L CK-MB (CK-2) 1.8 1.4 (0.0-2.4) ng/mL Troponin I 0.020 0.015 (0.000-0.034) ng/mL 09/17/17 Range/Units 00:07 AST (17-59) U/L CK-MB (CK-2) 1.1 (0.0-2.4) ng/mL Troponin I <0.012 (0.000-0.034) ng/mL Coagulation 09/16/17 Range/Units 12:52 PT 10.4 (9.0-12.0) sec APTT 23.1 (22.0-30.0) sec CBC 09/16/17 Range/Units 12:52 WBC 4.7 (3.8-10.6) k/uL RBC 4.01 L (4.30-5.90) m/uL Hgb 12.5 L (13.0-17.5) gm/dL Hct 40.3 (39.0-53.0) % Plt Count 202 (150-450) k/uL Comprehensive Metabolic Panel 09/16/17 Range/Units 12:52 Sodium 136 L (137-145) mmol/L Potassium 4.8 (3.5-5.1) mmol/L Chloride 105 (98-107) mmol/L Carbon Dioxide 25 (22-30) mmol/L BUN 31 H (9-20) mg/dL Creatinine 0.60 L (0.66-1.25) mg/dL Glucose 90 (74-99) mg/dL Calcium 9.2 (8.4-10.2) mg/dL AST 22 (17-59) U/L ALT 20 L (21-72) U/L Alkaline Phosphatase 65 (38-126) U/L Total Protein 6.2 L (6.3-8.2) g/dL Albumin 2.8 L (3.5-5.0) g/dL Current Medications Generic Name Dose Route Start Last Admin Trade Name Freq PRN Reason Stop Dose Admin Albuterol Sulfate 2.5 mg 09/16/17 17:26 Ventolin Nebulized INHALATION RT-Q6H PRN Shortness Of Breath Apixaban 2.5 mg 09/17/17 09:00 Eliquis PO DAILY [facility] Aspirin 81 mg 09/17/17 09:00 Aspirin PO DAILY [facility] Atorvastatin Calcium 20 mg 09/16/17 21:00 09/16/17 20:32 Lipitor PO 20 mg HS [place] Administration Cholecalciferol 1,000 unit 09/17/17 09:00 Vitamin D3 PO DAILY [facility] Sodium Chloride 1,000 mls @ 75 mls/hr 09/16/17 15:00 09/17/17 06:10 Saline 0.9% IV 75 mls/hr .[id number] [place]EL[place] Administration Leflunomide 20 mg 09/16/17 21:00 09/16/17 20:32 Arava PO 20 mg HS CAMELIA Administration Multivitamins 1 each 09/17/17 12:00 Theragran PO DAILY@1200 [facility] Naloxone HCl 0.2 mg 09/16/17 14:49 Narcan IV Q2M PRN Opioid Reversal Pantoprazole Sodium 40 mg 09/17/17 07:30 09/17/17 06:10 Protonix PO 40 mg [id number] CAMELIA Administration Intake and Output 09/16/17 09/17/17 09/17/17 22:59 06:59 14:59 Intake Total 240 Output Total 250 925 Balance -10 -925 Intake: Oral 240 Output: Urine 250 925 Other: Voiding Method Urinal Urinal # Voids 1 Weight 78.8 kg 09/16/17 12:52 09/16/17 12:52 EKG Interpretations (text) Sinus arrhythmia with a right bundle branch block Assessment and Plan Assessment: #1 symptom of dizziness followed by syncope, likely vasovagal episode #2 ischemic cardiomyopathy with prior AICD #3 chronic systolic congestive heart failure, last known ejection fraction 20-25 % and severe global hypokinesis per echo from July 2017 #4 history of CAD with prior stenting #5 paroxysmal atrial fibrillation, on Eliquis, will verify home dose #6 pulmonary fibrosis #7 rheumatoid arthritis 8 hypertension #9 hyperlipidemia Plan: From cardiology perspective, AICD was interrogated and showed no evidence of significant arrhythmia or ICD discharge. We will check orthostatic blood pressure. We will hold Lasix at this time. Syncope was likely related to some dehydration and drop in blood pressure. We will give a small fluid bolus of 75 mL an hour of 0.9 normal saline for 4 hours. We'll continue to follow the patient required further recommendations accordingly. [employer] APPRENTICE note has been reviewed, I agree with a documented findings and plan of care. Patient was seen and examined.
--- NOTE | 2017-09-17 13:47 | US ---
EXAMINATION TYPE: US carotid duplex BILAT DATE OF EXAM: 09/17/2017 COMPARISON: US 2017 CLINICAL HISTORY: syncope. EXAM MEASUREMENTS: RIGHT: Peak Systolic Velocity (PSV) cm/sec ----- Right CCA: 43.5 ----- Right ICA: 51.4 previous study dated 01/03/2017. ----- Right ECA: 36.2 ICA/CCA ratio: 1.2 RIGHT: End Diastole cm/sec ----- Right CCA: 20.0 ----- Right ICA: 26.0 ----- Right ECA: 2.8 LEFT: Peak Systolic Velocity (PSV) cm/sec ----- Left CCA: 39.1 ----- Left ICA: 34.1 ----- Left ECA: 35.8 ICA/CCA ratio: 0.9 LEFT: End Diastole cm/sec ----- Left CCA: 8.5 ----- Left ICA: 15.6 ----- Left ECA: 5.7 VERTEBRALS (direction of flow): Right Vertebral: Antegrade Left Vertebral: Antegrade Rhythm: Arrhythmia Moderate, irregular, and calcified wall changes are imaged at bilateral carotid bifurcation, but PSV is wnl bilaterally. IMPRESSION: I do not see evidence of a hemodynamically significant stenosis in either carotid system. Criteria for Assigning % of Stenosis / Diameter reduction (Estimation based on the indirect measurements of the internal carotid artery velocities (ICA PSV). 1. Normal (no stenosis)=ICA PSV < 125 cm/s: ratio < 2.0: ICA EDV<40 cm/s. 2. Less than 50% stenosis=ICA PSV < 125 cm/s: ratio < 2.0: ICA EDV<40 cm/s. 3. 50 to 69% stenosis=ICA PSV of 125 to 230 cm/s: ration 2.0 ? 4.0: ICA EDV 40-100 cm/s. 4. Greater than 70% stenosis to near occlusion= ICA PSV > 230 cm/s: ratio > 4.0: ICA EDV > 100 cm/s. 5. Near occlusion= ICA PSV velocities may be low or undetectable: variable ratio and ICA EDV. 6. Total occlusion=unable to detect flow.
[2017-09-17] MEDS: CARVEDILOL 6.25 MG TAB PO SCH (17:23)
[2017-09-17] MEDS: ATORVASTATIN 20 MG TAB PO SCH (20:17)
[2017-09-17] MEDS: LEFLUNOMIDE 20 MG TAB PO SCH (20:17)
[2017-09-18] MEDS: PANTOPRAZOLE 40 MG TABLET PO SCH (06:32)
[2017-09-18] MEDS: CARVEDILOL 6.25 MG TAB PO SCH (06:32)
[2017-09-18] MEDS ORDERED: SPIRONOLACTONE 25 MG TAB PO SCH (09:00)
[2017-09-18] MEDS ORDERED: LOSARTAN 50 MG TAB PO SCH (09:00)
[2017-09-18] MEDS: ASPIRIN 81 MG PO SCH (10:00)
[2017-09-18] MEDS: APIXABAN 2.5 MG TABLET PO SCH (10:01)
[2017-09-18] MEDS: MULTIVITAMINS, THERA 1 EACH TAB PO SCH (10:01)
[2017-09-18] MEDS: CHOLECALCIFEROL 1,000 UNIT TAB PO SCH (10:01)
[2017-09-18 10:34] VITALS: TEMP 97.5
[2017-09-18 10:59] LABS: HCT 37.6 % (39.0-53.0); HGB 11.7 gm/dL (13.0-17.5); Hypochromasia Slight; MCH 31.1 pg (25.0-35.0); MCHC 31.2 g/dL (31.0-37.0); MCV 99.6 fL (80.0-100.0); Mean Platelet Volume 6.7; Platelet Count 185 k/uL (150-450); RBC 3.77 m/uL (4.30-5.90); RDW 13.9 % (11.5-15.5); WBC 4.1 k/uL (3.8-10.6)
[2017-09-18 11:02] LABS: ALT 21 U/L (21-72); AST 17 U/L (17-59); Albumin 2.4 g/dL (3.5-5.0); Alkaline Phosphatase 54 U/L (38-126); Anion Gap 6 mmol/L; Blood Urea Nitrogen 15 mg/dL (9-20); Calcium 8.8 mg/dL (8.4-10.2); Carbon Dioxide 27 mmol/L (22-30); Chloride 104 mmol/L (98-107); Glucose 109 mg/dL (74-99); Potassium 4.5 mmol/L (3.5-5.1); Sodium 137 mmol/L (137-145); Total Bilirubin 0.5 mg/dL (0.2-1.3); Total Protein 5.7 g/dL (6.3-8.2)
[2017-09-18 11:35] LABS: Band Neutrophils % 1 %; Eosinophils # (M) 0.08 k/uL (0-0.7); Lymphocytes # (M) 1.97 k/uL (1.0-4.8); Monocytes # (M) 0.53 k/uL (0-1.0); Neutrophils % (M) 36 %; Nucleated Red Blood Cells 0 /100 WBC (0-0); Total Cells Counted 100
--- NOTE | 2017-09-18 11:47 | P.DS ---
Providers Date of admission: 09/16/17 14:49 Expected date of discharge: 09/18/17 Attending physician: Faith Gray Consults: 09/16/17 14:50 Consult Physician Urgent Consulting Provider: José Manuel Burnett Consult Reason/Comments: syncope Do you want consulting provider notified?: Yes 09/17/17 11:57 Consult Physician Routine Consulting Provider: Zuhair Guevara Consult Reason/Comments: syncope Do you want consulting provider notified?: Yes Primary care physician: Faith Isaac [facility] Course: Diagnoses on discharge: #1 syncopal episode with loss of consciousness for a few seconds #2 multiple episodes of dizziness #3 underlying history of cardiomyopathy #4 underlying history of atrial fibrillation #5 previous history of AICD placement #6 underlying history of rheumatoid arthritis #7 underlying history of hypertension, blood pressure on presentation was 92/69 #8 R ear pain, minimal ear congestion given a course of Cleocin on discharge Hospital course: Levi Mohr is an 82-year-old male, well known to my practice who presented to the emergency department after having a syncopal episode. Patient felt dizzy and then passed out. Patient states that he had 3 or 4 episodes of dizziness over the last few days, and had one syncopal episode, where he fell down to the floor in his bedroom he regained consciousness within seconds his was in an adjacent room when she came in patient had regained consciousness there was no tonic or clonic movements, no evidence of any seizure activity, no biting of the tongue, and no loss of any sphincter function. Patient symptom-free at this time. No chest pain or dyspnea. No headache or confusion. Patient does have some right ear pain. Patient does not recall the episode well. Patient was admitted to [facility] in July 2017 at that time he had evidence of acute influenza A infection and evidence of acute track KO bronchitis with sepsis he was treated with Tamiflu and antibiotic at that time. Patient also has a known history of cardiomyopathy with ejection fraction of 20-25% with previous history of AICD placement and history of atrial fibrillation maintained on liquids, he also has a known history of hypertension, hyperlipidemia, asbestosis, and known history of rheumatoid arthritis maintained on Ativan and Enbrel by Dr. Mosqueda. Patient was admitted to telemetry floor he was evaluated by cardiology AICD was interrogated and did not reveal any significant abnormality there was no evidence of any cardiac arrhythmia, no evidence of cardiac arrhythmia during this admission besides his atrial fibrillation. Most likely syncopal episode is related to dehydration and vasovagal episode patient felt well during this admission he was able to ambulate without any difficulty there was no dizziness. Throughout this admission patient was complaining of right ear pain exam of the right ear revealed minimal congestion in the tympanic membrane he was given a course of Cleocin 150 mg 3 times daily for 7 days at the time of discharge. Follow-up in our office on September 23 at 11:15 AM Plan - Discharge Summary Discharge Rx Participant: No New Discharge Prescriptions: Continue Cholecalciferol [Vitamin D3] 1,000 unit PO DAILY Simvastatin [Zocor] 40 mg PO HS Leflunomide [Arava] 20 mg PO DAILY Esomeprazole Magnesium [NexIUM] 40 mg PO DAILY Losartan [Cozaar] 50 mg PO DAILY [place]-3 Fatty Acids/Fish Oil [Fish Oil 1,000 mg Softgel] 1 cap PO DAILY Multivitamins, Thera [Multivitamin (formulary)] 1 tab PO DAILY Etanercept [Enbrel] 50 mg SQ WE Spironolactone [Aldactone] 25 mg PO DAILY #90 tablet Carvedilol [Coreg] 6.25 mg PO BID Apixaban [Eliquis] 2.5 mg PO DAILY Aspirin EC [Ecotrin Low Dose] 81 mg PO DAILY Furosemide [Lasix] 20 mg PO Q48H Albuterol Inhaler [Ventolin Hfa Inhaler] 2 puff INHALATION RT-Q6H PRN PRN Reason: Shortness Of Breath Discharge Medication List Cholecalciferol [Vitamin D3] 1,000 unit PO DAILY 06/15/15 [History] Esomeprazole Magnesium [NexIUM] 40 mg PO DAILY 06/15/15 [History] Etanercept [Enbrel] 50 mg SQ WE 06/15/15 [History] Leflunomide [Arava] 20 mg PO DAILY 06/15/15 [History] Losartan [Cozaar] 50 mg PO DAILY 06/15/15 [History] Multivitamins, Thera [Multivitamin (formulary)] 1 tab PO DAILY 06/15/15 [History ] [place]-3 Fatty Acids/Fish Oil [Fish Oil 1,000 mg Softgel] 1 cap PO DAILY [History] Simvastatin [Zocor] 40 mg PO HS 06/15/15 [History] Spironolactone [Aldactone] 25 mg PO DAILY #90 tablet 10/12/15 [Rx] Apixaban [Eliquis] 2.5 mg PO DAILY 01/03/17 [History] Aspirin EC [Ecotrin Low Dose] 81 mg PO DAILY 01/03/17 [History] Carvedilol [Coreg] 6.25 mg PO BID 01/03/17 [History] Furosemide [Lasix] 20 mg PO Q48H 01/03/17 [History] Albuterol Inhaler [Ventolin Hfa Inhaler] 2 puff INHALATION RT-Q6H PRN 09/16/17 [ History] Follow up Appointment(s)/Referral(s): Faith Gray MD [Primary Care Provider] - 1-2 days
--- NOTE | 2017-09-18 15:12 | PN ---
PROGRESS NOTE Mr. Mohr is in a sinus rhythm. He is comfortable resting. Denies any chest pain. Has no further episodes of syncope. No arrhythmia that we could see. He was walking out of the room without symptoms. He has no orthostatic changes. I believe this episode was probably vasovagal and he can be discharged. Vital signs stable. There is no JVD. S1-S2 heard normally. Short systolic murmur noted. Lungs are clear. Abdomen is soft, nontender. Lower extremities reveal normal pulses. No edema. Central nervous system is normal. Rest of physical examination is unchanged. He will be discharged and follow up with Dr. Guevara as an outpatient and consider an event monitor at that time. MMODL / IJN: [id number] /
[2017-09-18 15:22] VITALS: BP 99/51; PULSE 99; RESP 17
== END 2017-09-18 15:53 | disposition home or self-care (01) ==
LOC: EC 11:51 → INTOOBSV 14:49 → 6SEL 14:49
PROVIDERS: ADMIT Internal Medicine; ATTEND Internal Medicine
DX: R55 Syncope and collapse (principal); R42 Dizziness and giddiness; H92.01 Otalgia, right ear; I25.5 Ischemic cardiomyopathy; I11.0 Hypertensive heart disease with heart failure; I50.22 Chronic systolic (congestive) heart failure; I48.0 Paroxysmal atrial fibrillation; I25.10 Atherosclerotic heart disease of native coronary artery without angina pectoris; M06.9 Rheumatoid arthritis, unspecified; E78.5 Hyperlipidemia, unspecified; M19.90 Unspecified osteoarthritis, unspecified site; I83.90 Asymptomatic varicose veins of unspecified lower extremity; D89.9 Disorder involving the immune mechanism, unspecified; Z95.810 Presence of automatic (implantable) cardiac defibrillator; Z95.5 Presence of coronary angioplasty implant and graft; J61 Pneumoconiosis due to asbestos and other mineral fibers; I25.2 Old myocardial infarction; Z87.891 Personal history of nicotine dependence; Z79.01 Long term (current) use of anticoagulants; Z79.82 Long term (current) use of aspirin; Z79.899 Other long term (current) drug therapy; Z88.0 Allergy status to penicillin; Z86.19 Personal history of other infectious and parasitic diseases; Z87.19 Personal history of other diseases of the digestive system; Z82.49 Family history of ischemic heart disease and other diseases of the circulatory system; Z80.41 Family history of malignant neoplasm of ovary; Z80.1 Family history of malignant neoplasm of trachea, bronchus and lung
CPT/HCPCS: 99285 ×2; 96360 ×2; 96361 ×7; 36415; 93005; 80053 ×2; 82550 ×2; 82553 ×2; 84484 ×2; 85025 ×2; 85610; 85730; 81003; 71046; 93880; 70450; G0378 ×3

== ENCOUNTER → 2017-10-19 | Outpatient (CLI) | payer MEDICARE, BC ==
--- NOTE | 2017-10-25 20:11 | ENG ---
ELECTRONYSTAGMOGRAM REPORT VIDEO-ASSISTED ELECTRONYSTAGMOGRAM: DATE OF SERVICE: 10/19/2017. VNG INDICATIONS: [id number]-old male with vertigo, gradual onset, improving, occurring 1-2 days a week and lasting up to an hour at a time. Symptoms can be precipitated by looking up or head back position, bending over or head down position, moving the head, when in the car or driving or when hungry. Complains of difficulty with hearing the last 6 weeks bilaterally with ringing in the right ear of a steady nature and pain, fullness and pressure in the right ear. VNG FINDINGS: Saccades shows intact peak velocities, accuracies and latencies. Gaze with fixation shows no nystagmus in any of the directions of gaze, including centrally with vision denied. Tracking is unremarkable. Optokinetic nystagmus shows no significant asymmetry. Static positions tested in 6 different positions with eyes opened and then with vision denied show no nystagmus. Fredy-Hallpike maneuvers could not be completed due to age-related back issues. Caloric testing shows an adequate response with 15% weakness in the left ear, which is within normal limits. IMPRESSION: Unremarkable VNG study. Fredy-Hallpike maneuvers could not be completed due to back condition and benign positional vertigo could not be excluded. MMODL / IJN: [id number] /
== END | disposition home or self-care (01) ==
LOC: NEUROMAIN 06:41
PROVIDERS: ATTEND Otolaryngology
DX: R42 Dizziness and giddiness (principal)
CPT/HCPCS: 92537; 92540

== ENCOUNTER 2020-03-03 11:18 | Inpatient (IN) | payer MEDICARE ==
--- NOTE | 2020-03-03 12:00 | ED ---
Weakness HPI - General Chief complaint: Weakness Stated complaint: Weakness Time Seen by Provider: 03/03/20 11:20 Source: patient, EMS Mode of arrival: EMS Limitations: no limitations - History of Present Illness Initial comments: Patient is a 85-year-old male with past medical history of her artery disease, GI bleed, hypertension who presents emergency department with report that he received a call from Dr. Guevara's office stating that he needed emergency room for evaluation. The patient does have a pacemaker, ICD. They received a call stating that the device was going off on the patient's and he needed to get to the nearest emergency department. Patient denies feeling his defibrillator fire. He denies any chest pain or palpitations. Patient has been feeling generally weak however he has been weak for a significant period of time. He was recently hospitalized in the middle of January for hypotension and NSTEMI. Patient denies any fevers or chills. No nausea or vomiting. Denies shortness of breath. No chest pain. Denies abdominal pain. The patient was not told he tells in regards to his abnormal finding is, just to proceed to the ER Review the patient's chart demonstrates that he was hospitalized from to the at [facility] for hypotension and NSTEMI. - Related Data Home Medications Medication Instructions Recorded Confirmed Cholecalciferol [Vitamin D3 (25 1,000 unit PO DAILY 06/15/15 03/03/20 Mcg = 1000 Iu)] Esomeprazole Magnesium [NexIUM] 40 mg PO DAILY 06/15/15 03/03/20 Etanercept [Enbrel] 50 mg SQ REDDY 06/15/15 03/03/20 Multivitamins, Thera [Multivitamin 1 tab PO DAILY 06/15/15 03/03/20 (formulary)] [place]-3 Fatty Acids/Fish Oil [Fish 1 cap PO DAILY 06/15/15 03/03/20 Oil 1,000 mg Softgel] Simvastatin [Zocor] 40 mg PO HS 06/15/15 03/03/20 Apixaban [Eliquis] 2.5 mg PO DAILY 01/03/17 03/03/20 Aspirin EC [Ecotrin Low Dose] 81 mg PO DAILY 01/03/17 03/03/20 Furosemide [Lasix] 20 mg PO DAILY 01/03/17 03/03/20 carvediloL [Coreg] 6.25 mg PO BID 01/03/17 03/03/20 HYDROcodone/APAP 7.5-325MG [[place] 1 tab PO BID PRN 03/03/20 03/03/20 7.5-325] Allergies Allergy/AdvReac Type Severity Reaction Status Date / Time Penicillins Allergy Rash/Hives Verified 03/03/20 11:23 Review of Systems ROS Statement: Those systems with pertinent positive or pertinent negative responses have been documented in the HPI. ROS Other: All systems not noted in ROS Statement are negative. Past Medical History Past Medical History: Coronary Artery Disease (CAD), Heart Failure, GI Bleed, Hyperlipidemia, Hypertension, Myocardial Infarction ([place]), Osteoarthritis (OA), Rheumatoid Arthritis (RA) Additional Past Medical History / Comment(s): Asbestosis, coronary artery disease, CHF with an ejection fraction of 20-25%, hypertension, hyperlipidemia, previous myocardial infarction, rheumatoid arthritis, degenerative arthritis, chronic immunosuppression with Enbrel and the patient receives weekly Enbrel every Tuesday and Arava regarding his rheumatoid arthritis, chronic varicose veins, previous AICD placement for severe cardiomyopathy Last Myocardial Infarction Date:: 2008 History of Any Multi-Drug Resistant Organisms: None Reported Past Surgical History: AICD, Heart Catheterization, Heart Catheterization With Stent, Pacemaker Additional Past Surgical History / Comment(s): AICD/pacer 09/2015, 11/2008 PCI with stent, 2014 cardiac cath, colonoscopy. Past Anesthesia/Blood Transfusion Reactions: No Reported Reaction Date of Last Stent Placement:: 2008 Type of Cardiac Device: Permanent Pacemaker, AICD Device Placement Date:: 10/12/15 Past Psychological History: No Psychological Hx Reported Smoking Status: Never smoker Past Alcohol Use History: None Reported Past Drug Use History: None Reported - Past Family History Father History Unknown: Yes Mother Family Medical History: Cancer Additional Family Medical History / Comment(s): Mother had ovarian cancer followed by lung cancer. Brother(s) Family Medical History: Cancer, Coronary Artery Disease (CAD) Additional Family Medical History / Comment(s): pacemaker. from heart complications. unsure what kind General Exam Limitations: no limitations General appearance: alert, cachectic Head exam: Present: atraumatic, normocephalic, normal inspection Eye exam: Present: normal appearance Respiratory exam: Present: decreased breath sounds Cardiovascular Exam: Present: regular rate, normal rhythm, normal heart sounds. Absent: systolic murmur, diastolic murmur, rubs, gallop, clicks GI/Abdominal exam: Present: soft, normal bowel sounds. Absent: distended, tenderness, guarding, rebound, rigid Extremities exam: Present: pedal edema Neurological exam: Present: alert, oriented X3, CN II-XII intact Psychiatric exam: Present: normal affect, normal mood Skin exam: Present: warm, dry, intact, normal color. Absent: rash Course Vital Signs 03/03/20 03/03/20 03/03/20 11:19 11:25 11:30 Temperature 98.1 F Pulse Rate 70 85 82 Respiratory 18 21 22 Rate Blood Pressure 87/66 87/66 87/66 O2 Sat by Pulse 94 L 98 97 Oximetry 03/03/20 03/03/20 03/03/20 11:45 12:00 12:15 Temperature Pulse Rate 91 78 73 Respiratory 25 H 26 H 21 Rate Blood Pressure 78/62 89/67 83/67 O2 Sat by Pulse Oximetry 03/03/20 03/03/20 03/03/20 12:30 13:00 13:30 Temperature Pulse Rate 90 76 79 Respiratory 18 19 18 Rate Blood Pressure 87/72 90/74 O2 Sat by Pulse 98 Oximetry 03/03/20 03/03/20 03/03/20 14:00 14:30 15:30 Temperature Pulse Rate 82 103 H 88 Respiratory 16 17 18 Rate Blood Pressure 84/65 97/82 O2 Sat by Pulse 97 95 Oximetry 03/03/20 03/03/20 16:30 17:11 Temperature Pulse Rate 101 H Respiratory 16 Rate Blood Pressure 81/62 105/50 O2 Sat by Pulse Oximetry EKG Findings - EKG Comments: EKG Findings:: EKG demonstrates A. fib with a ventricular rate of 91. MA interval 192. QRS 164. QTC of 533. Bundle-branch block. No acute ST segment elevations. Medical Decision Making - Medical Decision Making Upon arrival the patient is placed in trauma bay 2. A thorough history and physical exam was performed. Patient is completely asymptomatic at this time. We did obtain laboratory studies. We interrogated the patient's pacemaker. Lab studies are remarkable for a troponin 0.160. BNP is 11,300. Chest x-ray demonstrates suspected underlying COPD and pulmonary fibrosis with bilateral infiltrate. The patient was given a 500 mL boluses his blood pressure is low. reports that she will check his blood pressure frequently and a systolic will be sometimes in the 60s. I discussed results with the patient. I do not receive the device interrogation as of yet. I did recommend hospital admission for consult by Dr. Guevara for which the patient did agree to. The case with Dr. Kumar who accepted admission. Patient is currently awaiting a bed on the floor - Lab Data Result diagrams: 03/06/20 09:27 03/06/20 09:27 Lab Results 03/03/20 03/03/20 03/03/20 Range/Units 12:00 12:00 12:00 WBC 3.8 (3.8-10.6) k/uL RBC 3.62 L (4.30-5.90) m/uL Hgb 11.1 L (13.0-17.5) gm/dL Hct 35.0 L (39.0-53.0) % MCV 96.9 (80.0-100.0) fL MCH 30.6 (25.0-35.0) pg MCHC 31.6 (31.0-37.0) g/dL RDW 15.1 (11.5-15.5) % Plt Count 183 (150-450) k/uL Neutrophils % 74 % Lymphocytes % 16 % Monocytes % 7 % Eosinophils % 2 % Basophils % 0 % Neutrophils # 2.8 (1.3-7.7) k/uL Lymphocytes # 0.6 L (1.0-4.8) k/uL Monocytes # 0.3 (0-1.0) k/uL Eosinophils # 0.1 (0-0.7) k/uL Basophils # 0.0 (0-0.2) k/uL Hypochromasia Marked PT 11.5 (9.0-12.0) sec INR 1.1 (<1.2) APTT 25.0 (22.0-30.0) sec D-Dimer 6.06 H (<0.60) mg/L FEU Sodium 132 L (137-145) mmol/L Potassium 4.0 (3.5-5.1) mmol/L Chloride 103 (98-107) mmol/L Carbon Dioxide 25 (22-30) mmol/L Anion Gap 4 mmol/L BUN 17 (9-20) mg/dL Creatinine 0.51 L (0.66-1.25) mg/dL Est GFR (CKD-EPI)AfAm >90 (>60 ml/min/1.73 sqM) Est GFR (CKD-EPI)NonAf >90 (>60 ml/min/1.73 sqM) Glucose 75 (74-99) mg/dL Plasma Lactic Acid Jean Paul (0.7-2.0) mmol/L Calcium 7.9 L (8.4-10.2) mg/dL Magnesium 1.8 (1.6-2.3) mg/dL Total Bilirubin 0.8 (0.2-1.3) mg/dL AST 33 (17-59) U/L ALT 12 (4-49) U/L Alkaline Phosphatase 71 (38-126) U/L Troponin I (0.000-0.034) ng/mL NT-Pro-B Natriuret Pep pg/mL Total Protein 4.8 L (6.3-8.2) g/dL Albumin 2.0 L (3.5-5.0) g/dL 03/03/20 03/03/20 03/03/20 Range/Units 12:00 12:00 12:00 WBC (3.8-10.6) k/uL RBC (4.30-5.90) m/uL Hgb (13.0-17.5) gm/dL Hct (39.0-53.0) % MCV (80.0-100.0) fL MCH (25.0-35.0) pg MCHC (31.0-37.0) g/dL RDW (11.5-15.5) % Plt Count (150-450) k/uL Neutrophils % % Lymphocytes % % Monocytes % % Eosinophils % % Basophils % % Neutrophils # (1.3-7.7) k/uL Lymphocytes # (1.0-4.8) k/uL Monocytes # (0-1.0) k/uL Eosinophils # (0-0.7) k/uL Basophils # (0-0.2) k/uL Hypochromasia PT (9.0-12.0) sec INR (<1.2) APTT (22.0-30.0) sec D-Dimer (<0.60) mg/L FEU Sodium (137-145) mmol/L Potassium (3.5-5.1) mmol/L Chloride (98-107) mmol/L Carbon Dioxide (22-30) mmol/L Anion Gap mmol/L BUN (9-20) mg/dL Creatinine (0.66-1.25) mg/dL Est GFR (CKD-EPI)AfAm (>60 ml/min/1.73 sqM) Est GFR (CKD-EPI)NonAf (>60 ml/min/1.73 sqM) Glucose (74-99) mg/dL Plasma Lactic Acid [place] 2.0 (0.7-2.0) mmol/L Calcium (8.4-10.2) mg/dL Magnesium (1.6-2.3) mg/dL Total Bilirubin (0.2-1.3) mg/dL AST (17-59) U/L ALT (4-49) U/L Alkaline Phosphatase (38-126) U/L Troponin I 0.160 H* (0.000-0.034) ng/mL NT-Pro-B Natriuret Pep 76061 pg/mL Total Protein (6.3-8.2) g/dL Albumin (3.5-5.0) g/dL Disposition Clinical Impression: History of implantable cardioverter-defibrillator (ICD) placement, NSTEMI (non-ST elevated myocardial infarction) Disposition: ADMITTED IP TO THIS HOSP Condition: Stable Is patient prescribed a controlled substance at d/c from ED?: No Decision to Admit Reason: Admit from EC Decision Date: 03/03/20 Decision Time: 13:29
[2020-03-03] MEDS ORDERED: SODIUM CHLORIDE 0.9% 500 ML 500 ML IV STA (12:01)
--- NOTE | 2020-03-03 12:55 | XR ---
EXAMINATION TYPE: XR chest 2V DATE OF EXAM: 03/03/2020 COMPARISON: 09/16/2017 TECHNIQUE: PA and lateral views submitted. HISTORY: Chest pain and cough FINDINGS: There is a cardiac device. There is diffuse interstitial pattern with bilateral infiltrate and small effusion. Arthropathy of the shoulders. Hypertrophic and degenerative change of the spine. Small bila teral pleural effusions. Calcification soft tissue the neck on the right could be related carotid art koko atherosclerotic disease. IMPRESSION: 1. Suspect underlying COPD and pulmonary fibrosis with bilateral infiltrate. Superimposed interstitia l pneumonitis or venous congestion in the differential diagnosis correlate clinically.
[2020-03-03 13:04] LABS: ALT 12 U/L (4-49); AST 33 U/L (17-59); African American GFR (CKD) >90 (>60 ml/min/1.73 sqM); Alkaline Phosphatase 71 U/L (38-126); Anion Gap 4 mmol/L; Blood Urea Nitrogen 17 mg/dL (9-20); Calcium 7.9 mg/dL (8.4-10.2); Carbon Dioxide 25 mmol/L (22-30); Chloride 103 mmol/L (98-107); Glucose 75 mg/dL (74-99); Magnesium 1.8 mg/dL (1.6-2.3); Non-African American GFR(CKD) >90 (>60 ml/min/1.73 sqM); Sodium 132 mmol/L (137-145); Total Bilirubin 0.8 mg/dL (0.2-1.3); Total Protein 4.8 g/dL (6.3-8.2)
[2020-03-03 13:19] LABS: Basophils % (A) 0 %; Eosinophils # (A) 0.1 k/uL (0-0.7); Eosinophils % (A) 2 %; HGB 11.1 gm/dL (13.0-17.5); Hypochromasia Marked; Lymphocytes # (A) 0.6 k/uL (1.0-4.8); Lymphocytes % (A) 16 %; MCH 30.6 pg (25.0-35.0); MCHC 31.6 g/dL (31.0-37.0); MCV 96.9 fL (80.0-100.0); Monocytes # (A) 0.3 k/uL (0-1.0); Monocytes % (A) 7 %; Neutrophils # (A) 2.8 k/uL (1.3-7.7); Neutrophils % (A) 74 %; Platelet Count 183 k/uL (150-450); RBC 3.62 m/uL (4.30-5.90); RDW 15.1 % (11.5-15.5); WBC 3.8 k/uL (3.8-10.6)
[2020-03-03 13:26] LABS: INR 1.1 (<1.2); Prothrombin Time 11.5 sec (9.0-12.0)
[2020-03-03] MEDS ORDERED: NALOXONE 0.4 MG/ML 1 ML VIAL IV PRN (13:29)
[2020-03-03 13:33] LABS: D-Dimer 6.06 mg/L FEU (<0.60)
[2020-03-03] MEDS ORDERED: SODIUM CHLORIDE 0.9% 500 ML 500 ML IV ONE (14:13)
[2020-03-03] MEDS ORDERED: HEPARIN SODIUM,PORCINE 10,000 UNIT/ML 1 ML VIAL IV ONE (17:58)
[2020-03-03] MEDS ORDERED: HEPARIN SODIUM,PORCINE 5,000 UNIT/ML 1 ML VIAL IV PRN (17:58)
[2020-03-03] MEDS ORDERED: HEPARIN SOD,PORK IN 0.45% NACL 25,000 UNIT in 0.45% NACL 1 250ML.BAG IV SCH (18:00)
[2020-03-03] MEDS ORDERED: HYDROcodone/APAP 7.5-325MG 1 EACH TAB PO PRN (18:00)
--- NOTE | 2020-03-03 19:52 | P.HPIM ---
History of Present Illness H&P Date: 03/03/20 Levi Mohr, is an 85-year-old male who presented to [facility] emergency room with a chief complaint of shortness of breath patient stated that he has been short of breath for 2 days prior to admission, on the day of admission he was contacted by his charge manager Dr. Guevara and was told to go to emergency room due to firing of pacemaker, ICD device. Patient was evaluated in the emergency room and was admitted to telemetry floor, troponin level were slightly elevated, d-dimer level was significantly elevated at 6.06. Patient was started on IV heparin, computed tomography scan angiogram of the chest was ordered, cardiology consultation was requested. Past Medical History Past Medical History: Coronary Artery Disease (CAD), Heart Failure, GI Bleed, Hyperlipidemia, Hypertension, Myocardial Infarction ([place]), Osteoarthritis (OA), R heumatoid Arthritis (RA) Additional Past Medical History / Comment(s): Asbestosis, coronary artery disease, CHF with an ejection fraction of 20-25%, hypertension, hyperlipidemia, previous myocardial infarction, rheumatoid arthritis, degenerative arthritis, chronic immunosuppression with Enbrel and the patient receives weekly Enbrel every Tuesday and Arava regarding his rheumatoid arthritis, chronic varicose veins, previous AICD placement for severe cardiomyopathy Last Myocardial Infarction Date:: 2008 History of Any Multi-Drug Resistant Organisms: None Reported Past Surgical History: AICD, Heart Catheterization, Heart Catheterization With Stent, Pacemaker Additional Past Surgical History / Comment(s): AICD/pacer 09/2015, 11/2008 PCI with stent, 2014 cardiac cath, colonoscopy. Past Anesthesia/Blood Transfusion Reactions: No Reported Reaction Date of Last Stent Placement:: 2008 Type of Cardiac Device: Permanent Pacemaker, AICD Device Placement Date:: 10/12/15 Past Psychological History: No Psychological Hx Reported Smoking Status: Never smoker Past Alcohol Use History: None Reported Past Drug Use History: None Reported - Past Family History Father History Unknown: Yes Mother Family Medical History: Cancer Additional Family Medical History / Comment(s): Mother had ovarian cancer followed by lung cancer. Brother(s) Family Medical History: Cancer, Coronary Artery Disease (CAD) Additional Family Medical History / Comment(s): pacemaker. from heart complications. unsure what kind Medications and Allergies Home Medications Medication Instructions Recorded Confirmed Type Cholecalciferol [Vitamin D3 (25 1,000 unit PO DAILY 06/15/15 03/03/20 History Mcg = 1000 Iu)] Esomeprazole Magnesium [NexIUM] 40 mg PO DAILY 06/15/15 03/03/20 History Etanercept [Enbrel] 50 mg SQ REDDY 06/15/15 03/03/20 History Multivitamins, Thera [Multivitamin 1 tab PO DAILY 06/15/15 03/03/20 History (formulary)] [place]-3 Fatty Acids/Fish Oil [Fish 1 cap PO DAILY 06/15/15 03/03/20 History Oil 1,000 mg Softgel] Simvastatin [Zocor] 40 mg PO HS 06/15/15 03/03/20 History Apixaban [Eliquis] 2.5 mg PO DAILY 01/03/17 03/03/20 History Aspirin EC [Ecotrin Low Dose] 81 mg PO DAILY 01/03/17 03/03/20 History Furosemide [Lasix] 20 mg PO DAILY 01/03/17 03/03/20 History carvediloL [Coreg] 6.25 mg PO BID 01/03/17 03/03/20 History HYDROcodone/APAP 7.5-325MG [[place] 1 tab PO BID PRN 03/03/20 03/03/20 History 7.5-325] Allergies Allergy/AdvReac Type Severity Reaction Status Date / Time Penicillins Allergy Rash/Hives Verified 03/03/20 11:23 Physical Exam Vitals: Vital Signs Temp Pulse Resp BP Pulse Ox 03/03/20 16:30 101 H 16 81/62 03/03/20 15:30 88 18 97/82 95 03/03/20 14:30 103 H 17 97 03/03/20 14:00 82 16 84/65 03/03/20 13:30 79 18 90/74 03/03/20 13:00 76 19 87/72 98 03/03/20 12:30 90 18 03/03/20 12:15 73 21 83/67 03/03/20 12:00 78 26 H 89/67 03/03/20 11:45 91 25 H 78/62 03/03/20 11:30 82 22 87/66 97 03/03/20 11:25 85 21 87/66 98 03/03/20 11:19 98.1 F 70 18 87/66 94 L Intake and Output 03/03/20 03/03/20 03/03/20 06:59 14:59 22:59 Other: Weight 75.296 kg In general patient is alert and oriented 3 in no apparent distress HEENT head normocephalic and atraumatic Neck is supple no JVD no goiter no lymphadenopathy Chest exam reveals a few scattered rhonchi no wheezing Cardiac exam reveals regular heart sounds no murmurs Abdomen is soft nontender no organomegaly was normal bowel sounds Extremity exam reveals no edema no cyanosis or clubbing Neurological examination reveals no gross focal deficit Results CBC & Chem 7: 03/03/20 12:00 03/03/20 12:00 Labs: Abnormal Lab Results - Last 24 Hours (Table) 03/03/20 03/03/20 03/03/20 Range/Units 12:00 12:00 12:00 RBC 3.62 L (4.30-5.90) m/uL Hgb 11.1 L (13.0-17.5) gm/dL Hct 35.0 L (39.0-53.0) % Lymphocytes # 0.6 L (1.0-4.8) k/uL D-Dimer 6.06 H (<0.60) mg/L FEU Sodium 132 L (137-145) mmol/L Creatinine 0.51 L (0.66-1.25) mg/dL Calcium 7.9 L (8.4-10.2) mg/dL Troponin I (0.000-0.034) ng/mL Total Protein 4.8 L (6.3-8.2) g/dL Albumin 2.0 L (3.5-5.0) g/dL 03/03/20 03/03/20 Range/Units 12:00 16:16 RBC (4.30-5.90) m/uL Hgb (13.0-17.5) gm/dL Hct (39.0-53.0) % Lymphocytes # (1.0-4.8) k/uL D-Dimer (<0.60) mg/L FEU Sodium (137-145) mmol/L Creatinine (0.66-1.25) mg/dL Calcium (8.4-10.2) mg/dL Troponin I 0.160 H* 0.152 H* (0.000-0.034) ng/mL Total Protein (6.3-8.2) g/dL Albumin (3.5-5.0) g/dL Assessment and Plan Plan: 1. Worsening shortness of breath, BNP is elevated at 11,300, chest x-ray reveals venous congestion versus interstitial pneumonitis, 2. Elevated d-dimer patient was started on IV heparin pulmonary consultation was requested 3. Underlying history of rheumatoid arthritis 4. Possible firing of ICD device, awaiting device report. 5. Underlying history of coronary artery disease followed by Dr. Guevara 6. Underlying history of congestive heart failure with cardiomyopathy At this time patient is admitted to telemetry floor cardiology and pulmonary consultation were requested Awaiting CT angiogram of the chest Will follow closely
--- NOTE | 2020-03-03 20:34 | CT ---
EXAMINATION TYPE: CT chest angio for PE DATE OF EXAM: 03/03/2020 COMPARISON: Chest x-ray earlier today. HISTORY: cough, SOB, elevated d-dimer CT DLP: 454.9 mGycm. Automated Exposure Control for Dose Reduction was Utilized. CONTRAST: CTA scan of the thorax is performed with IV Contrast, patient injected with 100 mL of Isovue 370, pul monary embolism protocol. MIP Images are created on CT scanner and reviewed. FINDINGS: Significant motion artifact degradation makes exam markedly suboptimal especially for subce ntimeter nodules. LUNGS: There is moderate to advanced underlying emphysematous change with at least moderate periphera l parenchymal fibrosis greatest in the lower lungs. Small to tiny bilateral pleural effusions are pre sent . Assoc. compression atelectasis noted. No pneumothorax seen bilaterally. MEDIASTINUM: There is suboptimal study with prominent right and left pulmonary arteries. CT findings consistent with underlying pulmonary hypertension. No saddle pulmonary embolism. Filling defect in lo bar branches right middle and lower lobes with significant occlusion of the right lower lobe pulmonar y artery axial image 91. Probable segmental thrombus in the left lower lobe with subsegmental extensi on. Underlying cardiomegaly with dual-lead right-sided pacemaker/AICD. Moderate biventricular dilatat ion. RV over LV ratio is less than 1.0. Moderate right atrial dilatation. OTHER: Underlying scoliotic curvature. Exaggerated kyphosis. Moderate multilevel spurring. IMPRESSION: 1. Suboptimal study with bilateral right greater than left lower lung pulmonary embolism. No CT evide nce for strain. Underlying pulmonary artery hypertension noted. 2. Background moderate to advanced underlying emphysematous change and at least moderate bilateral lo wer lung pulmonary fibrosis. Cardiomegaly with small tiny right greater than left pleural effusions. Possible mild interstitial edema. Correlate for CHF exacerbation. Critical results communicated to patient's floor via telephone at time of dictation. The patient's nu rse is not available. Thus Emailage system utilized. A [place] level critical message alert has been initiated for Faith Gray MD via the [employer] Critical Results System on 03/03/2020 8:31 PM. This message alert has been sent to Faith Gray MD via the preferences provided by the clinician for the receipt of Radiology Critical Findings. Message ID [id number].
[2020-03-03] MEDS: ATORVASTATIN 20 MG TAB PO SCH (22:16)
[2020-03-04 07:43] LABS: Basophils % (A) 0 %; Eosinophils % (A) 1 %; HCT 36.5 % (39.0-53.0); HGB 10.9 gm/dL (13.0-17.5); Hypochromasia Moderate; Lymphocytes # (A) 0.6 k/uL (1.0-4.8); Lymphocytes % (A) 15 %; MCH 29.4 pg (25.0-35.0); MCHC 29.8 g/dL (31.0-37.0); MCV 98.5 fL (80.0-100.0); Macrocytosis Slight; Mean Platelet Volume 7.4; Monocytes # (A) 0.2 k/uL (0-1.0); Monocytes % (A) 5 %; Neutrophils # (A) 3.4 k/uL (1.3-7.7); Neutrophils % (A) 78 %; Platelet Count 194 k/uL (150-450); RDW 15.3 % (11.5-15.5); WBC 4.4 k/uL (3.8-10.6)
[2020-03-04 07:56] LABS: African American GFR (CKD) >90 (>60 ml/min/1.73 sqM); Anion Gap 3 mmol/L; Blood Urea Nitrogen 17 mg/dL (9-20); Calcium 8.2 mg/dL (8.4-10.2); Carbon Dioxide 27 mmol/L (22-30); Chloride 104 mmol/L (98-107); Glucose 102 mg/dL (74-99); Non-African American GFR(CKD) >90 (>60 ml/min/1.73 sqM); Potassium 3.7 mmol/L (3.5-5.1); Sodium 134 mmol/L (137-145)
--- NOTE | 2020-03-04 08:25 | P.CRDCN ---
History of Present Illness Consult date: 03/04/20 Requesting physician: Faith Gray Reason for Consult (text): NSTEMI, acute dysrhythmia Chief complaint: weakness, confusion History of present illness: This is a pleasant but confused 85-year-old gentleman who follows with Dr. Guevara in the office. He is a poor historian and is unclear as to why he came to the hospital and actually thinks he is in a train. Most of the HPI was obtained from the chart. He has a history of CAD, ischemic cardiomyopathy with a known ejection fraction of around 20-25%, status post AICD placement, paroxysmal atrial fibrillation, anticoagulated at home on Eliquis, chronic systolic congestive heart failure, hypertension, hyperlipidemia, GI bleed and rheumatoid arthritis. Was recently hospitalized at [facility] with weakness and NSTEMI. Presented to the emergency department apparently after being called by the device nurse at our office and told to go to the emergency room due to multiple AICD discharges. The device interrogation is not currently available to me. The patient's currently complaining of feeling weak as well as confused. He is unclear as to whether or not he had shortness of breath at home. Denies any chest discomfort or feeling of having his ICD discharge. On admission heart rate were 70s to 90s with a blood pressure of 87/66 and subsequent blood pressure 78/62 with an oxygen saturation of 94% on 2 L nasal cannula. Laboratory values show normal white blood cell count, hemoglobin 11.1, d-dimer 6.06, sodium 132, potassium 4.0, BUN 17, creatinine 0.51, NT proBNP 11,300 and troponins of 0.160, 0.152 and 0.145. Chest x-ray on admission showed suspicion of underlying COPD and pulmonary fibrosis with bilateral infiltrates. Superimposed interstitial pneumonitis or venous congestion in the differential diagnosis correlate clinically. Due to elevated d-dimer CTA of the chest was performed which showed suboptimal study with bilateral right greater than left lower lung pulmonary embolism, no CT evidence for strain, underlying pulmonary artery hypertension noted. Upon examination, patient is resting in bed. Complains of weakness and confusion. When asked about compliance with home medications he states "I haven't been home." Upon discussion with the device nurse at the office the patient did not receive any shocks from his ICD. She noted on a remote interrogation that the patient was having more episodes of PAT with RVR which prompted her to call the patient at which time she spoke to the who stated the patient was weaker and much more fatigued and sleeping more than usual. This prompted the nurse to recommend further evaluation and treatment and advised him to go to the emergency department. Past Medical History Past Medical History: Coronary Artery Disease (CAD), Heart Failure, GI Bleed, Hyperlipidemia, Hypertension, Myocardial Infarction ([place]), Osteoarthritis (OA), Rheumatoid Arthritis (RA) Additional Past Medical History / Comment(s): Asbestosis, coronary artery disease, CHF with an ejection fraction of 20-25%, hypertension, hyperlipidemia, previous myocardial infarction, rheumatoid arthritis, degenerative arthritis, chronic immunosuppression with Enbrel and the patient receives weekly Enbrel every Tuesday and Arava regarding his rheumatoid arthritis, chronic varicose veins, previous AICD placement for severe cardiomyopathy Last Myocardial Infarction Date:: 2008 History of Any Multi-Drug Resistant Organisms: None Reported Past Surgical History: AICD, Heart Catheterization, Heart Catheterization With Stent, Pacemaker Additional Past Surgical History / Comment(s): AICD/pacer 09/2015, 11/2008 PCI with stent, 2014 cardiac cath, colonoscopy. Past Anesthesia/Blood Transfusion Reactions: No Reported Reaction Date of Last Stent Placement:: 2008 Type of Cardiac Device: Permanent Pacemaker, AICD Device Placement Date:: 10/12/15 Past Psychological History: No Psychological Hx Reported Smoking Status: Never smoker Past Alcohol Use History: None Reported Past Drug Use History: None Reported - Past Family History Father History Unknown: Yes Mother Family Medical History: Cancer Additional Family Medical History / Comment(s): Mother had ovarian cancer followed by lung cancer. Brother(s) Family Medical History: Cancer, Coronary Artery Disease (CAD) Additional Family Medical History / Comment(s): pacemaker. from heart complications. unsure what kind Medications and Allergies Home Medications Medication Instructions Recorded Confirmed Type Cholecalciferol [Vitamin D3 (25 1,000 unit PO DAILY 06/15/15 03/03/20 History Mcg = 1000 Iu)] Esomeprazole Magnesium [NexIUM] 40 mg PO DAILY 06/15/15 03/03/20 History Etanercept [Enbrel] 50 mg SQ REDDY 06/15/15 03/03/20 History Multivitamins, Thera [Multivitamin 1 tab PO DAILY 06/15/15 03/03/20 History (formulary)] [place]-3 Fatty Acids/Fish Oil [Fish 1 cap PO DAILY 06/15/15 03/03/20 History Oil 1,000 mg Softgel] Simvastatin [Zocor] 40 mg PO HS 06/15/15 03/03/20 History Apixaban [Eliquis] 2.5 mg PO DAILY 01/03/17 03/03/20 History Aspirin EC [Ecotrin Low Dose] 81 mg PO DAILY 01/03/17 03/03/20 History Furosemide [Lasix] 20 mg PO DAILY 01/03/17 03/03/20 History carvediloL [Coreg] 6.25 mg PO BID 01/03/17 03/03/20 History HYDROcodone/APAP 7.5-325MG [Boron 1 tab PO BID PRN 03/03/20 03/03/20 History 7.5-325] Allergies Allergy/AdvReac Type Severity Reaction Status Date / Time Penicillins Allergy Rash/Hives Verified 03/03/20 11:23 Physical Exam Vitals: Vital Signs Temp Pulse Pulse Resp BP BP Pulse Ox 03/04/20 04:00 97.4 F L 52 L 18 100/65 94 L 03/03/20 22:59 98.0 F 63 17 105/61 86 L 03/03/20 19:49 98.3 F 88 18 87/52 95 03/03/20 18:00 97.6 F 96 24 93/54 03/03/20 17:11 105/50 03/03/20 16:30 101 H 16 81/62 03/03/20 15:30 88 18 97/82 95 03/03/20 14:30 103 H 17 97 03/03/20 14:00 82 16 84/65 03/03/20 13:30 79 18 90/74 03/03/20 13:00 76 19 87/72 98 03/03/20 12:30 90 18 03/03/20 12:15 73 21 83/67 03/03/20 12:00 78 26 H 89/67 03/03/20 11:45 91 25 H 78/62 03/03/20 11:30 82 22 87/66 97 03/03/20 11:25 85 21 87/66 98 03/03/20 11:19 98.1 F 70 18 87/66 94 L Intake and Output 03/03/20 03/04/20 03/04/20 22:59 06:59 14:59 Intake Total 240 Output Total 600 600 Balance -360 -600 Intake: Oral 240 Output: Urine 600 600 Other: Voiding Method Diaper Diaper # Voids 2 Weight 75.296 kg 91 kg PHYSICAL EXAMINATION: This is a 85-year-old male in no apparent distress at the time of my examination. VITAL SIGNS: Blood pressure 100/65, heart rate 52, respirations 18, temp 97.4F. Patient is 94 % on 2 L nasal cannula of note the patient was 86% on room air at 11 PM last night. HEENT: Head is atraumatic, normocephalic. Pupils are equal, round. Sclerae anicteric. Conjunctivae are clear. Mucous membranes of the mouth are moist. Neck is supple. There is no elevated jugular venous pressure. No carotid bruit is heard. CHEST EXAMINATION: Clear reveal bibasilar and left lower lobe crackles. No wheezes or rhonchi. Respirations even and nonlabored. HEART EXAMINATION: Heart irregular, positive S1 and S2. No S3. No S4. No clicks, rubs or murmurs. ABDOMEN: Soft, nontender. Bowel sounds are heard. No organomegaly noted. EXTREMITIES: 1+ peripheral pulses with evidence of trace left lower extremity edema and no calf tenderness noted. NEUROLOGIC EXAMINATION: Patient is awake, alert and oriented x1. Results 03/04/20 06:20 03/04/20 06:20 Cardiac Enzymes 03/03/20 03/03/20 03/03/20 Range/Units 12:00 12:00 16:16 AST 33 (17-59) U/L Troponin I 0.160 H* 0.152 H* (0.000-0.034) ng/mL 03/03/20 Range/Units 18:16 AST (17-59) U/L Troponin I 0.145 H* (0.000-0.034) ng/mL Coagulation 03/03/20 03/03/20 03/04/20 Range/Units 12:00 23:06 07:34 PT 11.5 (9.0-12.0) sec APTT 25.0 63.0 H 53.4 H (22.0-30.0) sec CBC 03/03/20 03/04/20 Range/Units 12:00 06:20 WBC 3.8 4.4 (3.8-10.6) k/uL RBC 3.62 L 3.70 L (4.30-5.90) m/uL Hgb 11.1 L 10.9 L (13.0-17.5) gm/dL Hct 35.0 L 36.5 L (39.0-53.0) % Plt Count 183 194 (150-450) k/uL Comprehensive Metabolic Panel 03/03/20 03/04/20 Range/Units 12:00 06:20 Sodium 132 L 134 L (137-145) mmol/L Potassium 4.0 3.7 (3.5-5.1) mmol/L Chloride 103 104 (98-107) mmol/L Carbon Dioxide 25 27 (22-30) mmol/L BUN 17 17 (9-20) mg/dL Creatinine 0.51 L 0.50 L (0.66-1.25) mg/dL Glucose 75 102 H (74-99) mg/dL Calcium 7.9 L 8.2 L (8.4-10.2) mg/dL AST 33 (17-59) U/L ALT 12 (4-49) U/L Alkaline Phosphatase 71 (38-126) U/L Total Protein 4.8 L (6.3-8.2) g/dL Albumin 2.0 L (3.5-5.0) g/dL Current Medications Generic Name Dose Route Start Last Admin Trade Name Freq PRN Reason Stop Dose Admin Hydrocodone Bitart/Acetaminophen 1 each 03/03/20 18:00 Boron 7.5-325 PO BID PRN Pain Aspirin 81 mg 03/04/20 09:00 Aspirin PO DAILY [facility] Atorvastatin Calcium 20 mg 03/03/20 21:00 03/03/20 22:16 Lipitor PO 20 mg HS CAMELIA Administration Cholecalciferol 1,000 unit 03/04/20 09:00 Vitamin D3 (25 Mcg = 1000 Iu) PO DAILY [facility] Heparin Sodium (Porcine) 0 unit 03/03/20 17:58 Heparin IV PER PROTOCOL PRN Low PTT Protocol Heparin Sodium/Sodium Chloride 250 mls @ 13.553 mls/hr 03/03/20 18:00 03/03/20 18:19 25,000 unit/ Sodium Chloride IV 18 units/kg/hr .[id number] CAMELIA 13.553 mls/hr Administration Protocol 18 UNITS/KG/HR Multivitamins 1 each 03/04/20 09:00 Theragran PO DAILY CAMELIA Naloxone HCl 0.2 mg 03/03/20 13:29 Narcan IV Q2M PRN Opioid Reversal Non-Formulary Medication 50 mg 03/09/20 09:00 Etanercept [Enbrel] SQ REDDY CAMELIA Pantoprazole Sodium 40 mg 03/04/20 09:00 Protonix PO DAILY CAMELIA Intake and Output 03/03/20 03/04/20 03/04/20 22:59 06:59 14:59 Intake Total 240 Output Total 600 600 Balance -360 -600 Intake: Oral 240 Output: Urine 600 600 Other: Voiding Method Diaper Diaper # Voids 2 Weight 75.296 kg 91 kg 03/04/20 06:20 03/04/20 06:20 Assessment and Plan Assessment: #1 progressively worsening weakness and fatigue #2 ischemic cardiomyopathy with severely impaired LV systolic function with an ejection fraction of 20-25% #3 chronic systolic congestive heart failure #4 bilateral PEs #5 paroxysmal atrial fibrillation anticoagulated at home on Eliquis 2.5 mg by mouth twice a day. #6 history of hypertension currently with hypotension #7 hyperlipidemia #8 delerium #9 increasing frequency of PAT with RVR noted on a remote interrogation of the patient's ICD Plan: From cardiology's perspective, we'll obtain a 2-D echo with Doppler. We will discontinue heparin and start the patient on Eliquis 5mg by mouth twice a day. We'll obtain interrogation report from our office. We will continue to follow the patient and provide further recommendations accordingly. APPLICATION DEVELOPMENT DIRECTOR note has been reviewed, I agree with a documented findings and plan of care. Patient was seen and examined.
[2020-03-04] MEDS: CHOLECALCIFEROL 1,000 UNIT TAB PO SCH (10:40)
[2020-03-04] MEDS: APIXABAN 5 MG TAB PO SCH ×2 (10:40→23:35)
[2020-03-04] MEDS: ASPIRIN 81 MG PO SCH (10:40)
[2020-03-04] MEDS: PANTOPRAZOLE 40 MG TABLET PO SCH (10:40)
[2020-03-04] MEDS: METOPROLOL TARTRATE 25 MG TAB PO SCH ×2 (10:40→23:35)
[2020-03-04] MEDS: MULTIVITAMINS, THERA 1 EACH TAB PO SCH (10:40)
--- NOTE | 2020-03-04 11:07 | ECHOF ---
Referral Reason:cad MEASUREMENTS -------- HEIGHT: 188.0 cm WEIGHT: 90.7 kg BP: RVIDd: 5.0 cm (< 3.3) IVSd: 1.5 cm (0.6 - 1.1) LVIDd: 5.3 cm (3.9 - 5.3) LVPWd: 1.7 cm (0.6 - 1.1) IVSs: 1.4 cm LVIDs: 4.8 cm LVPWs: 1.7 cm LAESV Index (A-L): 47.72 ml/m Ao Diam: 3.9 cm (2.0 - 3.7) AV Cusp: 2.3 cm (1.5 - 2.6) MV EXCURSION: 21.045 mm (> 18.000) MV EF SLOPE: 166 mm/s (70 - 150) EPSS: 2.0 cm MV E Rashaad: 0.50 m/s MV DecT: 164 ms MV A Rashaad: 0.55 m/s MV E/A Ratio: 0.91 AR PHT: 829 ms RAP: 5.00 mmHg RVSP: 42.45 mmHg FINDINGS -------- This was a technically adequate study. The left ventricular size is normal. There is moderate concentric left ventricular hypertrophy. T here is severe global hypokinesis of LV . Overall left ventricular systolic function is severely im paired with, an EF < 20%. Mitral Doppler inflow pattern suggests diastolic filling abnormality {E/E '}. The right ventricle is severely enlarged. LA is severely dilated >40 ml/m2 The right atrium is mildly enlarged. Electronic pacemaker lead seen in the right atrial cavity. Interatrial and interventricular septum intact. The aortic valve is trileaflet and appears structurally normal. There is mild aortic valve sclerosi s. There is mild aortic regurgitation. Moderate mitral annular calcification present. Moderate mitral regurgitation is present. Moderate tricuspid regurgitation present. There is moderate pulmonary hypertension. The right noy tricular systolic pressure, as measured by Doppler, is 42.45mmHg. Trace/mild (physiologic) pulmonic regurgitation. The aortic root is mildy dilated. IVC Not well visulized. There is no pericardial effusion. CONCLUSIONS -------- 1. The left ventricular size is normal. 2. There is moderate concentric left ventricular hypertrophy. 3. There is severe global hypokinesis of LV . 4. Overall left ventricular systolic function is severely impaired with, an EF < 20%. 5. Mitral Doppler inflow pattern suggest diastolic filling abnormality {E/E'}. 6. The right ventricle is severely enlarged. 7. LA is severely dilated >40 ml/m2 8. The right atrium is mildly enlarged. 9. There is mild aortic valve sclerosis. 10. There is mild aortic regurgitation. 11. Moderate mitral annular calcification present. 12. Moderate mitral regurgitation is present. 13. Moderate tricuspid regurgitation present. 14. There is moderate pulmonary hypertension. 15. Trace/mild (physiologic) pulmonic regurgitation. 16. The aortic root is mildy dilated. HARDBOARD PRESS OPERATOR: Esperanza Flor RDCS
--- NOTE | 2020-03-04 15:27 | P.CNPUL ---
History of Present Illness Consult date: 03/04/20 Requesting physician: Faith Gray Reason for consult: pulmonary embolism Chief complaint: defibrillator issues and weakness, confusion. History of present illness: this is an 85-year-old white male,, known history of severe cardiomyopathy, ischemic in nature, ejection fraction of 20-25%. Patient had previous AICD placement, and he is known to have history of paroxysmal atrial fibrillation, a nticoagulated with Eliquis. Known to have history of chronic systolic congestive heart failure, hypertension, rheumatoid arthritis, recently admitted to [facility] with weakness and non-ST elevation myocardial infarction. Apparently the patient was called by the device nurse at [facility] telling him that the AICD was noted to have multiple discharges, and he needs to go to the emergency room. Upon presentation to the ER, patient was noted to be confused, weak, and could not give an adequate history. But apparently his heart rate was normal and regular, blood pressure was low, he was on 2 L nasal cannula, and his d-dimer was a bit elevated. His BNP level was el evated. Troponins were also elevated. Chest x-ray showed COPD, and bibasilar interstitial lung disease. Possible congestive heart failure and interstitial lung disease. CT angiogram of the chest was done and it was positive for bilateral pulmonary embolism. Patient was placed on heparin, and we were asked to see him on consultation. I reviewed the chest x-ray and the CT of the chest., and I agree that the patient does have interstitial lung disease, possibly some component of congestive heart failure, and bilateral pulmonary embolism. Review of Systems could not be obtained, patient is a very poor historian Past Medical History Past Medical History: Coronary Artery Disease (CAD), Heart Failure, GI Bleed, Hyperlipidemia, Hypertension, Myocardial Infarction ([place]), Osteoarthritis (OA), Rheumatoid Arthritis (RA) Additional Past Medical History / Comment(s): Asbestosis, coronary artery disease, CHF with an ejection fraction of 20-25%, hypertension, hyperlipidemia, previous myocardial infarction, rheumatoid arthritis, degenerative arthritis, chronic immunosuppression with Enbrel and the patient receives weekly Enbrel every Tuesday and Ara regarding his rheumatoid arthritis, chronic varicose veins, previous AICD placement for severe cardiomyopathy Last Myocardial Infarction Date:: 2008 History of Any Multi-Drug Resistant Organisms: None Reported Past Surgical History: AICD, Heart Catheterization, Heart Catheterization With Stent, Pacemaker Additional Past Surgical History / Comment(s): AICD/pacer 09/2015, 11/2008 PCI with stent, 2014 cardiac cath, colonoscopy. Past Anesthesia/Blood Transfusion Reactions: No Reported Reaction Date of Last Stent Placement:: 2008 Type of Cardiac Device: Permanent Pacemaker, AICD Device Placement Date:: 10/12/15 Past Psychological History: No Psychological Hx Reported Smoking Status: Never smoker Past Alcohol Use History: None Reported Past Drug Use History: None Reported - Past Family History Father History Unknown: Yes Mother Family Medical History: Cancer Additional Family Medical History / Comment(s): Mother had ovarian cancer followed by lung cancer. Brother(s) Family Medical History: Cancer, Coronary Artery Disease (CAD) Additional Family Medical History / Comment(s): pacemaker. from heart complications. unsure what kind Medications and Allergies Home Medications Medication Instructions Recorded Confirmed Type Cholecalciferol [Vitamin D3 (25 1,000 unit PO DAILY 06/15/15 03/03/20 History Mcg = 1000 Iu)] Esomeprazole Magnesium [NexIUM] 40 mg PO DAILY 06/15/15 03/03/20 History Etanercept [Enbrel] 50 mg SQ REDDY 06/15/15 03/03/20 History Multivitamins, Thera [Multivitamin 1 tab PO DAILY 06/15/15 03/03/20 History (formulary)] [place]-3 Fatty Acids/Fish Oil [Fish 1 cap PO DAILY 06/15/15 03/03/20 History Oil 1,000 mg Softgel] Simvastatin [Zocor] 40 mg PO HS 06/15/15 03/03/20 History Apixaban [Eliquis] 2.5 mg PO DAILY 01/03/17 03/03/20 History Aspirin EC [Ecotrin Low Dose] 81 mg PO DAILY 01/03/17 03/03/20 History Furosemide [Lasix] 20 mg PO DAILY 01/03/17 03/03/20 History carvediloL [Coreg] 6.25 mg PO BID 01/03/17 03/03/20 History HYDROcodone/APAP 7.5-325MG [[place] 1 tab PO BID PRN 03/03/20 03/03/20 History 7.5-325] Allergies Allergy/AdvReac Type Severity Reaction Status Date / Time Penicillins Allergy Rash/Hives Verified 03/03/20 11:23 Physical Exam Vitals: Vital Signs Temp Pulse Pulse Resp BP BP Pulse Ox 03/04/20 11:38 97.6 F 90 16 86/50 96 03/04/20 08:00 97.2 F L 94 18 96/64 97 03/04/20 04:00 97.4 F L 52 L 18 100/65 94 L 03/03/20 22:59 98.0 F 63 17 105/61 86 L 03/03/20 19:49 98.3 F 88 18 87/52 95 03/03/20 18:00 97.6 F 96 24 93/54 03/03/20 17:11 105/50 03/03/20 16:30 101 H 16 81/62 03/03/20 15:30 88 18 97/82 95 Intake and Output 03/04/20 03/04/20 03/04/20 06:59 14:59 22:59 Intake Total 110 Output Total 600 Balance -600 110 Intake: IV 20 Invasive Line 2 20 Oral 90 Output: Urine 600 Other: Voiding Method Diaper Urinal # Voids 2 # Bowel Movements 1 Weight 91 kg 91 kg Physical Exam: Revealed a 85-year-old white male, confused, in no distress. Head: Atraumatic, normocephalic. HEENT:[Neck is supple.] [No neck masses.] [No thyromegaly.] [No JVD.] Chest: [symmetrical chest expansion, crackles and rhonchi at the bases, no wheezing. No chest wall tenderness. Cardiac Exam: irregular irregular rhythm, 2/6 systolic murmur thought the precordium..] Abdomen: [Soft, nontender, no megaly, no rebound, no guarding, normal bowel sounds.] Extremities: [No clubbing,trace of bipedal edema, no cyanosis.] Neurological Exam: patient is a poor historian, oriented to place, only. Psychiatric: Normal mood, affect, poor mental status. Results - Laboratory Findings CBC and BMP: 03/04/20 06:20 03/04/20 06:20 PT/INR, D-dimer PT 11.5 sec (9.0-12.0) 03/03/20 12:00 INR 1.1 (<1.2) 03/03/20 12:00 D-Dimer 6.06 mg/L FEU (<0.60) H 03/03/20 12:00 Abnormal lab findings: Abnormal Labs 03/03/20 03/03/20 03/03/20 12:00 12:00 12:00 RBC 3.62 L Hgb 11.1 L Hct 35.0 L MCHC Lymphocytes # 0.6 L APTT D-Dimer 6.06 H Sodium 132 L Creatinine 0.51 L Glucose Calcium 7.9 L Troponin I Total Protein 4.8 L Albumin 2.0 L 03/03/20 03/03/20 03/03/20 12:00 16:16 18:16 RBC Hgb Hct MCHC Lymphocytes # APTT D-Dimer Sodium Creatinine Glucose Calcium Troponin I 0.160 H* 0.152 H* 0.145 H* Total Protein Albumin 03/03/20 03/04/20 03/04/20 23:06 06:20 06:20 RBC 3.70 L Hgb 10.9 L Hct 36.5 L MCHC 29.8 L Lymphocytes # 0.6 L APTT 63.0 H D-Dimer Sodium 134 L Creatinine 0.50 L Glucose 102 H Calcium 8.2 L Troponin I Total Protein Albumin 03/04/20 07:34 RBC Hgb Hct MCHC Lymphocytes # APTT 53.4 H D-Dimer Sodium Creatinine Glucose Calcium Troponin I Total Protein Albumin - Diagnostic Findings CT scan - chest: image reviewed (as noted in HPI.) Assessment and Plan Assessment: impression: Shortness of breath, multifactorial, mostly secondary to chronic systolic congestive heart failure, interstitial lung disease, most likely secondary to rheumatoid lungs, and now bilateral pulmonary embolism. Chronic systolic congestive heart failure secondary to ischemic cardiomyopathy Bilateral pulmonary embolism. Paroxysmal atrial fibrillation, maintained on Eliquis at 2.5 mg twice a day. Benign essential hypertension. Dyslipidemia. History of asbestosis. History of rheumatoid arthritis, maintained on Enbrel and Arava on outpatient basis. History of AICD placement. Progressive worsening weakness and fatigue secondary to above. Recommendation: Continue present treatment plan including heparin, and transition to a higher dose of Eliquis upon discharge. Continue diuretics. Resume home meds. diuretics as needed. Titrate oxygen to keep O2 saturation above 90%. Patient was already switched to a higher dose of Eliquis and his heparin could be discontinued. overall prognosis is extremely poor and guarded. We'll continue to follow Time with Patient: Greater than 30
[2020-03-04] MEDS: HYDROcodone/APAP 7.5-325MG 1 EACH TAB PO SCH (16:06)
--- NOTE | 2020-03-04 16:46 | P.CONS ---
History of Present Illness - Chief Complaint Medical debility - History of Present Illness I had the opportunity to see patient for inpatient rehab consultation with regard to medical debility. He is admitted to [facility] March 03 with generalized weakness as well as severe rheumatoid arthritic joint pain. Seen by cardiology for non-STEMI as well as Dr. Duke for bilateral PE. CTA demonstrates bilateral PE. Chest x-ray of COPD. PT and OT prescribed. Previous functional history as elicited patient and daughter: 85-year-old right- handed white male who is lives in one floor home, 4-5 steps to enter, with . does cooking and laundry and niece helps and daughters do the driving. Patient describes independent with own sponge bath, dressing and gait with walker. PMD Dr. Gray. Denies tobacco or alcohol. Family history mother with cancer. Review of Systems Review of systems: ENT: Denies sneezes or discharge. Eyes: Denies discharge or photophobia. Cardiac: Denies chest pain or palpitation. Pulmonary: Denies cough or shortness of breath. Gastrointestinal: Denies nausea, emesis, constipation, diarrhea. Genitourinary: Denies discharge or frequency. Musculoskeletal: Generalized joint pain. Neurologic: Generalized weakness. Endocrine: Denies shakes or sweats. Oncology: Denies cancers. Dermatologic: Denies rash, itching, pruritus. ALLERGY/immunology: Denies sneezes, rashes. Past Medical History Past Medical History: Coronary Artery Disease (CAD), Heart Failure, GI Bleed, Hyperlipidemia, Hypertension, Myocardial Infarction ([place]), Osteoarthritis (OA), Rheumatoid Arthritis (RA) Additional Past Medical History / Comment(s): Asbestosis, coronary artery disease, CHF with an ejection fraction of 20-25%, hypertension, hyperlipidemia, previous myocardial infarction, rheumatoid arthritis, degenerative arthritis, chronic immunosuppression with Enbrel and the patient receives weekly Enbrel every Tuesday and regarding his rheumatoid arthritis, chronic varicose veins, previous AICD placement for severe cardiomyopathy Last Myocardial Infarction Date:: 2008 History of Any Multi-Drug Resistant Organisms: None Reported Past Surgical History: AICD, Heart Catheterization, Heart Catheterization With Stent, Pacemaker Additional Past Surgical History / Comment(s): AICD/pacer 09/2015, 11/2008 PCI with stent, 2014 cardiac cath, colonoscopy. Past Anesthesia/Blood Transfusion Reactions: No Reported Reaction Date of Last Stent Placement:: 2008 Type of Cardiac Device: Permanent Pacemaker, AICD Device Placement Date:: 10/12/15 Past Psychological History: No Psychological Hx Reported Smoking Status: Never smoker Past Alcohol Use History: None Reported Past Drug Use History: None Reported - Past Family History Father History Unknown: Yes Mother Family Medical History: Cancer Additional Family Medical History / Comment(s): Mother had ovarian cancer followed by lung cancer. Brother(s) Family Medical History: Cancer, Coronary Artery Disease (CAD) Additional Family Medical History / Comment(s): pacemaker. from heart complications. unsure what kind Medications and Allergies Home Medications Medication Instructions Recorded Confirmed Type Cholecalciferol [Vitamin D3 (25 1,000 unit PO DAILY 06/15/15 03/03/20 History Mcg = 1000 Iu)] Esomeprazole Magnesium [NexIUM] 40 mg PO DAILY 06/15/15 03/03/20 History Etanercept [Enbrel] 50 mg SQ REDDY 06/15/15 03/03/20 History Multivitamins, Thera [Multivitamin 1 tab PO DAILY 06/15/15 03/03/20 History (formulary)] [place]-3 Fatty Acids/Fish Oil [Fish 1 cap PO DAILY 06/15/15 03/03/20 History Oil 1,000 mg Softgel] Simvastatin [Zocor] 40 mg PO HS 06/15/15 03/03/20 History Apixaban [Eliquis] 2.5 mg PO DAILY 01/03/17 03/03/20 History Aspirin EC [Ecotrin Low Dose] 81 mg PO DAILY 01/03/17 03/03/20 History Furosemide [Lasix] 20 mg PO DAILY 01/03/17 03/03/20 History carvediloL [Coreg] 6.25 mg PO BID 01/03/17 03/03/20 History HYDROcodone/APAP 7.5-325MG [[place] 1 tab PO BID PRN 03/03/20 03/03/20 History 7.5-325] Allergies Allergy/AdvReac Type Severity Reaction Status Date / Time Penicillins Allergy Rash/Hives Verified 03/03/20 11:23 Physical Exam Vitals: Vital Signs Temp Pulse Resp BP BP Pulse Ox 03/04/20 16:25 91/61 03/04/20 15:40 16 03/04/20 15:35 98.6 F 89 16 100/62 94 L 03/04/20 11:38 97.6 F 90 16 86/50 96 03/04/20 08:00 97.2 F L 94 18 96/64 97 03/04/20 04:00 97.4 F L 52 L 18 100/65 94 L 03/03/20 22:59 98.0 F 63 17 105/61 86 L 03/03/20 19:49 98.3 F 88 18 87/52 95 03/03/20 18:00 97.6 F 96 24 93/54 03/03/20 17:11 105/50 Intake and Output 03/04/20 03/04/20 03/04/20 06:59 14:59 22:59 Intake Total 110 610 Output Total 600 Balance -600 110 610 Intake: IV 20 10 Invasive Line 2 20 10 Oral 90 600 Output: Urine 600 Other: Voiding Method Diaper Urinal Urinal # Voids 2 # Bowel Movements 1 Weight 91 kg 91 kg Skin: Good color, texture, turgor. General: Medium build and comfortable appearance. Head: Normocephalic, atraumatic. Eyes: Symmetric. Pupils equal round. Ears: Symmetric. Hearing within normal limits. Mouth: Clear. Neck: Supple. Carotid without bruit. Cardiac: Regular rate and rhythm. Lungs: Clear anteriorly and posteriorly. Abdomen: Soft active nontender. Extremities: Mild rheumatoid changes throughout. Neurological: Mental status: Alert, cooperative, pleasant. Cranial nerves: Symmetric facial tone and trapezius. Motor: About antigravity at best all limbs. Sensation: Intact throughout. DTRs: Symmetric and equal throughout. Mobility: Requires physical assist for bed mobility. Results CBC & Chem 7: 03/04/20 06:20 03/04/20 06:20 Labs: Abnormal Lab Results - Last 24 Hours (Table) 03/03/20 03/03/20 03/03/20 Range/Units 16:16 18:16 23:06 RBC (4.30-5.90) m/uL Hgb (13.0-17.5) gm/dL Hct (39.0-53.0) % MCHC (31.0-37.0) g/dL Lymphocytes # (1.0-4.8) k/uL APTT 63.0 H (22.0-30.0) sec Sodium (137-145) mmol/L Creatinine (0.66-1.25) mg/dL Glucose (74-99) mg/dL Calcium (8.4-10.2) mg/dL Troponin I 0.152 H* 0.145 H* (0.000-0.034) ng/mL 03/04/20 03/04/20 03/04/20 Range/Units 06:20 06:20 07:34 RBC 3.70 L (4.30-5.90) m/uL Hgb 10.9 L (13.0-17.5) gm/dL Hct 36.5 L (39.0-53.0) % MCHC 29.8 L (31.0-37.0) g/dL Lymphocytes # 0.6 L (1.0-4.8) k/uL APTT 53.4 H (22.0-30.0) sec Sodium 134 L (137-145) mmol/L Creatinine 0.50 L (0.66-1.25) mg/dL Glucose 102 H (74-99) mg/dL Calcium 8.2 L (8.4-10.2) mg/dL Troponin I (0.000-0.034) ng/mL Assessment and Plan (1) Bilateral pulmonary embolism Current Visit: Yes Status: Acute Code(s): I26.99 - OTHER PULMONARY EMBOLISM WITHOUT ACUTE COR PULMONALE SNOMED Code(s): 03921355 (2) NSTEMI (non-ST elevated myocardial infarction) Current Visit: Yes Status: Acute Code(s): I21.4 - NON-ST ELEVATION (NSTEMI) MYOCARDIAL INFARCTION SNOMED Code(s): 88258381 (3) Acute respiratory distress Current Visit: No Status: Acute Code(s): R06.03 - ACUTE RESPIRATORY DISTRESS SNOMED Code(s): 233595899 (4) Asbestosis Current Visit: No Status: Acute Code(s): J61 - PNEUMOCONIOSIS DUE TO ASBESTOS AND OTHER MINERAL FIBERS SNOMED Code(s): 22608289 Plan: Impression: 1. Medical debility. 2. Bilateral PE. 2. Asbestosis. 4. Rheumatoid arthritis with multiple joint pain. As well as osteoarthritis. 5. Coronary disease with current non-STEMI. History of previous [place]. 6. Hypertension. Comments and plan: PT and OT prescribed. Rehab prognosis currently guarded. Discussed case with daughter at this time neither of us believe patient can tolerate a three-hour inpatient rehab program. Should begin to consider slower paced program.
--- NOTE | 2020-03-04 18:38 | P.PN ---
Subjective Progress Note Date: 03/04/20 Levi Mohr, is an 85-year-old male who presented to [facility] emergency room with a chief complaint of shortness of breath patient stated that he has been short of breath for 2 days prior to admission, on the day of admission he was contacted by his manager orange Dr. Guevara and was told to go to emergency room due to firing of pacemaker, ICD device. Patient was evaluated in the emergency room and was admitted to telemetry floor, troponin level were slightly elevated, d-dimer level was significantly elevated at 6.06. Patient was started on IV heparin, computed tomography scan angiogram of the chest was ordered, cardiology consultation was requested. on 03/04/2020 patient was seen and examined on the medical floor he is alert and oriented 3 in no apparent distress, he is complaining of joint pain otherwise he denies any complaint at this time, there is no fever or chills no headache or dizziness no chest pain no shortness of breath at rest but some shortness of breath while walking, no cough no nausea or vomiting no abdominal pain no diarrhea no burning with urination no frequency or urgency and no hematuria Objective - Vital Signs Vital signs: Vital Signs Temp 98.6 F 03/04/20 15:35 Pulse 89 03/04/20 15:35 Resp 16 03/04/20 15:40 BP 91/61 03/04/20 16:25 Pulse Ox 94 L 03/04/20 15:35 Intake & Output 03/03/20 03/04/20 03/04/20 18:59 06:59 18:59 Intake Total 240 1020 Output Total 300 900 Balance -60 -900 1020 Weight 75.296 kg 91 kg 91 kg Intake: IV 30 Invasive Line 2 30 Oral 240 990 Output: Urine 300 900 Other: Voiding Method Diaper Diaper Urinal # Voids 2 # Bowel Movements 1 - Exam In general patient is alert and oriented 3 in no apparent distress HEENT head normocephalic and atraumatic Neck is supple no JVD no goiter no lymphadenopathy Chest exam reveals a few scattered rhonchi no wheezing Cardiac exam reveals regular heart sounds no murmurs Abdomen is soft nontender no organomegaly was normal bowel sounds Extremity exam reveals no edema no cyanosis or clubbing Neurological examination reveals no gross focal deficit - Labs CBC & Chem 7: 03/04/20 06:20 03/04/20 06:20 Labs: Abnormal Lab Results - Last 24 Hours (Table) 03/03/20 03/03/20 03/04/20 Range/Units 18:16 23:06 06:20 RBC 3.70 L (4.30-5.90) m/uL Hgb 10.9 L (13.0-17.5) gm/dL Hct 36.5 L (39.0-53.0) % MCHC 29.8 L (31.0-37.0) g/dL Lymphocytes # 0.6 L (1.0-4.8) k/uL APTT 63.0 H (22.0-30.0) sec Sodium (137-145) mmol/L Creatinine (0.66-1.25) mg/dL Glucose (74-99) mg/dL Calcium (8.4-10.2) mg/dL Troponin I 0.145 H* (0.000-0.034) ng/mL 03/04/20 03/04/20 Range/Units 06:20 07:34 RBC (4.30-5.90) m/uL Hgb (13.0-17.5) gm/dL Hct (39.0-53.0) % MCHC (31.0-37.0) g/dL Lymphocytes # (1.0-4.8) k/uL APTT 53.4 H (22.0-30.0) sec Sodium 134 L (137-145) mmol/L Creatinine 0.50 L (0.66-1.25) mg/dL Glucose 102 H (74-99) mg/dL Calcium 8.2 L (8.4-10.2) mg/dL Troponin I (0.000-0.034) ng/mL Assessment and Plan Plan: 1. Worsening shortness of breath, BNP is elevated at 11,300, chest x-ray reveals venous congestion versus interstitial pneumonitis, 2. Elevated d-dimer patient was started on IV heparin pulmonary consultation was requested 3. Underlying history of rheumatoid arthritis 4. Possible firing of ICD device, awaiting device report. 5. Underlying history of coronary artery disease followed by Dr. Guevara 6. Underlying history of congestive heart failure with cardiomyopathy At this time patient is admitted to telemetry floor cardiology and pulmonary consultation were requested CT angiogram of the chest, revealed evidence of bilateral pulmonary edema, patient was started yesterday on IV heparin, then was switched to oral Levaquin as 5 mg by mouth twice daily, will monitor closely. cardiology and pulmonaryinput reviewed
--- NOTE | 2020-03-04 18:42 | P.PN ---
Progress Note - Text Progress Note Date: 03/04/20 record of family meeting: Date of meeting 03/04/2020 time of meeting 1:30 PM Present at the meeting myself, patient Levi Mohr and his daughter Elena diagnosis and prognosis discussed in details Care at the time of discharge discussed, including possibility of going to a rehab, possibility of having home care, and possibility of hospice care, pros and cons of each modality of care was discussed in details with patient's daughter. At this time will proceed with physical therapy and occupational therapy, will assess if patient can go to a rehab at [facility]. Family and patient are not ready for hospice at this point.
[2020-03-04] MEDS: ATORVASTATIN 20 MG TAB PO SCH (23:35)
[2020-03-05] MEDS: HYDROcodone/APAP 7.5-325MG 1 EACH TAB PO SCH ×4 (03:24→23:11)
[2020-03-05 07:23] LABS: African American GFR (CKD) >90 (>60 ml/min/1.73 sqM); Anion Gap 2 mmol/L; Blood Urea Nitrogen 16 mg/dL (9-20); Calcium 8.2 mg/dL (8.4-10.2); Carbon Dioxide 29 mmol/L (22-30); Chloride 104 mmol/L (98-107); Glucose 95 mg/dL (74-99); Non-African American GFR(CKD) >90 (>60 ml/min/1.73 sqM); Potassium 4.4 mmol/L (3.5-5.1); Sodium 135 mmol/L (137-145)
[2020-03-05] MEDS: ASPIRIN 81 MG PO SCH (08:19)
[2020-03-05] MEDS: CHOLECALCIFEROL 1,000 UNIT TAB PO SCH (08:19)
[2020-03-05] MEDS: PANTOPRAZOLE 40 MG TABLET PO SCH (08:19)
[2020-03-05] MEDS: MULTIVITAMINS, THERA 1 EACH TAB PO SCH (08:19)
[2020-03-05] MEDS: APIXABAN 5 MG TAB PO SCH ×2 (08:19→19:59)
[2020-03-05] MEDS: METOPROLOL TARTRATE 25 MG TAB PO SCH ×2 (08:23→19:59)
--- NOTE | 2020-03-05 11:05 | P.PN ---
Subjective Progress Note Date: 03/05/20 This is a pleasant but confused 85-year-old gentleman who follows with Dr. Guevara in the office. He is a poor historian and is unclear as to why he came to the hospital and actually thinks he is in a train. Most of the HPI was obtained from the chart. He has a history of CAD, ischemic cardiomyopathy with a known ejection fraction of around 20-25%, status post AICD placement, paroxysmal atrial fibrillation, anticoagulated at home on Eliquis, chronic systolic congestive heart failure, hypertension, hyperlipidemia, GI bleed and rheumatoid arthritis. Was recently hospitalized at [facility] with weakness and NSTEMI. Presented to the emergency department apparently after being called by the device nurse at our office and told to go to the emergency room. The patient had apparently been having frequent episodes of PAT with a very rapid ventricular response. Upon further discussion at that time the verbalized that the patient had been sleeping a lot more and was quite weak and unable to get a reading from the blood pressure machine. The patient's currently complaining of feeling weak as well as confused. He is unclear as to whether or not he had shortness of breath at home. Denies any chest discomfort. On admission heart rate were 70s to 90s with a blood pressure of 87/66 and subsequent blood pressure 78/62 with an oxygen saturation of 94% on 2 L nasal cannula. Laboratory values show normal white blood cell count, hemoglobin 11.1, d-dimer 6.06, sodium 132, potassium 4.0, BUN 17, creatinine 0.51, NT proBNP 11,300 and troponins of 0.160, 0.152 and 0.145. Chest x-ray on admission showed suspicion of underlying COPD and pulmonary fibrosis with bilateral infiltrates. Superimposed interstitial pneumonitis or venous congestion in the differential diagnosis correlate clinically. Due to elevated d-dimer CTA of the chest was performed which showed suboptimal study with bilateral right greater than left lower lung pulmonary embolism, no CT evidence for strain, underlying pulmonary artery hypertension noted. Upon examination, patient is resting in bed. Complains of weakness and confusion. When asked about compliance with home medications he states "I haven't been home." 03/05/2020 The patient was seen and examined this morning sitting up in a chair. He overall states he feels fairly well. He denies any current complaints of shortness of breath or chest discomfort. He is less confused today. Echocardiogram with Doppler study showed severe global hypokinesis of the LV, severely impaired LV systolic function with an ejection fraction of less than 20%, severely enlarged RV, severely dilated LA, moderate MR, moderate TR and moderate pulmonary hypertension. Labs today show sodium 135, potassium 4.4, BUN 16 and creatinine of 0.53. Objective - Vital Signs Vital signs: Vital Signs Temp 96.7 F L 03/05/20 08:00 Pulse 98 03/05/20 08:00 Resp 16 03/05/20 08:00 BP 103/59 03/05/20 08:00 Pulse Ox 95 03/05/20 08:00 Intake & Output 03/04/20 03/05/20 03/05/20 18:59 06:59 18:59 Intake Total 1020 10 240 Output Total 300 Balance 1020 -290 240 Weight 91 kg 91 kg Intake: IV 30 10 Invasive Line 2 30 10 Oral 990 240 Output: Urine 300 Other: Voiding Method Urinal Urinal # Voids 1 # Bowel Movements 1 - Exam PHYSICAL EXAMINATION: HEENT: Head is atraumatic, normocephalic. Pupils equal, round. Neck is supple. There is no elevated jugular venous pressure. HEART EXAMINATION: Heart sounds irregular, S1 and S2 with a systolic murmur. CHEST EXAMINATION: Lungs reveal bibasilar and left lower lobe crackles. No chest wall tenderness is noted on palpation or with deep breathing. ABDOMEN: Soft, nontender. Bowel sounds are heard. No organomegaly noted. EXTREMITIES: 1+ peripheral pulses with evidence of trace left lower extremity peripheral edema and no calf tenderness noted. NEUROLOGIC patient is awake, alert and oriented x2. . - Labs CBC & Chem 7: 03/04/20 06:20 03/05/20 05:57 Labs: Abnormal Lab Results - Last 24 Hours (Table) 03/05/20 Range/Units 05:57 Sodium 135 L (137-145) mmol/L Creatinine 0.53 L (0.66-1.25) mg/dL Calcium 8.2 L (8.4-10.2) mg/dL Microbiology - Last 24 Hours (Table) 03/03/20 18:45 Blood Culture - Preliminary Blood No Growth after 24 hours Assessment and Plan Assessment: #1 progressively worsening weakness and fatigue #2 ischemic cardiomyopathy with severely impaired LV systolic function with an ejection fraction of <20% #3 chronic systolic congestive heart failure #4 bilateral PEs #5 paroxysmal atrial fibrillation anticoagulated on Eliquis 5 mg by mouth twice a day #6 history of hypertension currently with hypotension #7 hyperlipidemia #8 delerium #9 increasing frequency of PAT with RVR noted on a remote interrogation of the patient's ICD Plan: From cardiology's perspective, medications were reviewed and we will continue the same. We will continue to follow the patient and provide further recommenda tions accordingly. FRUIT SPRAYER note has been reviewed, I agree with a documented findings and plan of care. Patient was seen and examined.
--- NOTE | 2020-03-05 12:25 | P.PN ---
Subjective Progress Note Date: 03/05/20 Principal diagnosis: Shortness of breath, multifactorial, related to chronic systolic CHF, ILD, and bilateral pulmonary embolism this is an 85-year-old white male,, known history of severe cardiomyopathy, ischemic in nature, ejection fraction of 20-25%. Patient had previous AICD placement, and he is known to have history of paroxysmal atrial fibrillation, anticoagulated with Eliquis. Known to have history of chronic systolic congestive heart failure, hypertension, rheumatoid arthritis, recently admitted to [facility] with weakness and non-ST elevation myocardial infarction. Apparently the patient was called by the device nurse [facility] telling him that the AICD was noted to have multiple discharges, and he needs to go to the emergency room. Upon presentation to the ER, patient was noted to be confused, weak, and could not give an adequate history. But apparently his heart rate was normal and regular, blood pressure was low, he was on 2 L nasal cannula, and his d-dimer was a bit elevated. His BNP level was elevated. Troponins were also elevated. Chest x-ray showed COPD, and bibasilar interstitial lung disease. Possible congestive heart failure and interstitial lung disease. CT angiogram of the chest was done and it was positive for bilateral pulmonary embolism. Patient was placed on heparin, and we were asked to see him on consultation. I reviewed the chest x-ray and the CT of the chest., and I agree that the patient does have interstitial lung disease, possibly some component of congestive heart failure, and bilateral pulmonary embolism. On 03/05/2020 patient seen in follow-up on selective care unit, he is awake and alert, on 2 liters of oxygen with pulse ox of 95%, he sitting up in the recliner he denies acute distress, denies any shortness of breath, denies any chest pain. Lung sounds are clear, diminished at the bases. Patient's home dose Eliquis was increased to 5 mg twice daily for acute bilateral pulmonary emboli. Hemodynamically he is stable. Echocardiogram has been reviewed showing severely impaired LV function with an EF of less than 20%, moderate MR, moderate TR, moderate pulmonary hypertension. Objective - Vital Signs Vital signs: Vital Signs Temp 96.7 F L 03/05/20 08:00 Pulse 98 03/05/20 08:00 Resp 16 03/05/20 11:48 BP 103/59 03/05/20 08:00 Pulse Ox 95 03/05/20 08:00 Intake & Output 03/04/20 03/05/20 03/05/20 18:59 06:59 18:59 Intake Total 1020 10 240 Output Total 300 Balance 1020 -290 240 Weight 91 kg 91 kg Intake: IV 30 10 Invasive Line 2 30 10 Oral 990 240 Output: Urine 300 Other: Voiding Method Urinal Urinal Urinal # Voids 1 0 # Bowel Movements 1 - Exam GENERAL EXAM: Alert, 85-year-old white male, frail looking, on 2 L of oxygen the pulse ox of 95%, comfortable in no apparent distress. HEAD: Normocephalic/atraumatic. EYES: Normal reaction of pupils, equal size. Conjunctiva pink, sclera white. NOSE: Clear with pink turbinates. THROAT: No erythema or exudates. NECK: No masses, no JVD, no thyroid enlargement, no adenopathy. CHEST: No chest wall deformity. Symmetrical expansion. LUNGS: Equal air entry with no crackles, wheeze, rhonchi or dullness. CVS: Regular rate and rhythm, normal S1 and S2, no gallops, no murmurs, no rubs ABDOMEN: Soft, nontender. No hepatosplenomegaly, normal bowel sounds, no guarding or rigidity. EXTREMITIES: No clubbing, no edema, no cyanosis, 2+ pulses and upper and lower extremities. MUSCULOSKELETAL: Muscle strength and tone normal. SPINE: No scoliosis or deformity SKIN: No rashes CENTRAL NERVOUS SYSTEM: Alert and oriented -3. No focal deficits, tone is normal in all 4 extremities. PSYCHIATRIC: Alert and oriented -3. Appropriate affect. Intact judgment and insight. - Labs CBC & Chem 7: 03/04/20 06:20 03/05/20 05:57 Labs: Abnormal Lab Results - Last 24 Hours (Table) 03/05/20 Range/Units 05:57 Sodium 135 L (137-145) mmol/L Creatinine 0.53 L (0.66-1.25) mg/dL Calcium 8.2 L (8.4-10.2) mg/dL Microbiology - Last 24 Hours (Table) 03/03/20 18:45 Blood Culture - Preliminary Blood No Growth after 24 hours Assessment and Plan Plan: Assessment: 1. Shortness of breath, multifactorial, mostly secondary to chronic systolic congestive heart failure, interstitial lung disease, most likely secondary to rheumatoid lungs, and now bilateral pulmonary embolism. 2. Chronic systolic congestive heart failure secondary to ischemic cardiomyopathy 3. Bilateral pulmonary embolism. 4. Paroxysmal atrial fibrillation, maintained on Eliquis at 2.5 mg twice a day. 5. Benign essential hypertension. 6. Dyslipidemia. 7. History of asbestosis. 8. History of rheumatoid arthritis, maintained on Enbrel and Arava on outpatient basis. 9. History of AICD placement. 10. Progressive worsening weakness and fatigue secondary to above. Plan: Continue with current dose of Eliquis, hemodynamically patient remains stable, no worsening dyspnea, no chest discomfort, echocardiogram results have been noted, today's lab work has been noted, no acute events overnight, vital signs have been stable. Stable for discharge from pulmonary perspective I performed a history & physical examination of the patient and discussed their management with my nurse practitioner, Yoselin Key. I reviewed the nurse practitioner's note and agree with the documented findings and plan of care. Lung sounds are positive for clear breath sounds. The findings and the impression was discussed with the patient. I attest to the documentation by the nurse practitioner. Time with Patient: Less than 30
--- NOTE | 2020-03-05 17:31 | P.PN ---
Subjective Progress Note Date: 03/05/20 Levi Mohr, is an 85-year-old male who presented to [facility] emergency room with a chief complaint of shortness of breath patient stated that he has been short of breath for 2 days prior to admission, on the day of admission he was contacted by his revenue accounting manager Dr. Guevara and was told to go to emergency room due to firing of pacemaker, ICD device. Patient was evaluated in the emergency room and was admitted to telemetry floor, troponin level were slightly elevated, d-dimer level was significantly elevated at 6.06. Patient was started on IV heparin, computed tomography scan angiogram of the chest was ordered, cardiology consultation was requested. on 03/04/2020 patient was seen and examined on the medical floor he is alert and oriented 3 in no apparent distress, he is complaining of joint pain otherwise he denies any complaint at this time, there is no fever or chills no headache or dizziness no chest pain no shortness of breath at rest but some shortness of breath while walking, no cough no nausea or vomiting no abdominal pain no diarrhea no burning with urination no frequency or urgency and no hematuria On 03/05/2020 patient was seen and examined on the medical floor he is alert and oriented 3 in no distress there is no fever or chills no headache or dizziness no chest pain no cough, he is still having shortness of breath with any activity, no nausea or vomiting no abdominal pain no diarrhea no burning with urination no frequency or urgency no hematuria Objective - Vital Signs Vital signs: Vital Signs Temp 96.7 F L 03/05/20 08:00 Pulse 64 03/05/20 16:00 Resp 16 03/05/20 16:00 BP 101/65 03/05/20 16:00 Pulse Ox 93 L 03/05/20 16:00 Intake & Output 03/04/20 03/05/20 03/05/20 18:59 06:59 18:59 Intake Total 1020 10 360 Output Total 300 Balance 1020 -290 360 Weight 91 kg 91 kg Intake: IV 30 10 Invasive Line 2 30 10 Oral 990 360 Output: Urine 300 Other: Voiding Method Urinal Urinal Urinal # Voids 1 0 # Bowel Movements 1 - Exam In general patient is alert and oriented 3 in no apparent distress HEENT head normocephalic and atraumatic Neck is supple no JVD no goiter no lymphadenopathy Chest exam reveals a few scattered rhonchi no wheezing Cardiac exam reveals regular heart sounds no murmurs Abdomen is soft nontender no organomegaly was normal bowel sounds Extremity exam reveals no edema no cyanosis or clubbing Neurological examination reveals no gross focal deficit - Labs CBC & Chem 7: 03/04/20 06:20 03/05/20 05:57 Labs: Abnormal Lab Results - Last 24 Hours (Table) 03/05/20 Range/Units 05:57 Sodium 135 L (137-145) mmol/L Creatinine 0.53 L (0.66-1.25) mg/dL Calcium 8.2 L (8.4-10.2) mg/dL Microbiology - Last 24 Hours (Table) 03/03/20 18:45 Blood Culture - Preliminary Blood No Growth after 24 hours Assessment and Plan Plan: 1. Worsening shortness of breath, BNP is elevated at 11,300, chest x-ray reveals venous congestion versus interstitial pneumonitis, 2. Elevated d-dimer patient was started on IV heparin pulmonary consultation was requested 3. Underlying history of rheumatoid arthritis 4. Possible firing of ICD device, awaiting device report. 5. Underlying history of coronary artery disease followed by Dr. Guevara 6. Underlying history of congestive heart failure with cardiomyopathy At this time patient is admitted to telemetry floor cardiology and pulmonary consultation were requested CT angiogram of the chest, revealed evidence of bilateral pulmonary edema, patient was started yesterday on IV heparin, then was switched to oral Levaquin as 5 mg by mouth twice daily, will monitor closely. cardiology and pulmonaryinput reviewed
[2020-03-05] MEDS: ATORVASTATIN 20 MG TAB PO SCH (19:59)
[2020-03-06] MEDS: APIXABAN 5 MG TAB PO SCH ×2 (08:16→20:44)
[2020-03-06] MEDS: ASPIRIN 81 MG PO SCH (08:16)
[2020-03-06] MEDS: MULTIVITAMINS, THERA 1 EACH TAB PO SCH (08:16)
[2020-03-06] MEDS: METOPROLOL TARTRATE 25 MG TAB PO SCH ×2 (08:16→20:44)
[2020-03-06] MEDS: CHOLECALCIFEROL 1,000 UNIT TAB PO SCH (08:16)
[2020-03-06] MEDS: HYDROcodone/APAP 7.5-325MG 1 EACH TAB PO SCH ×3 (08:16→23:41)
[2020-03-06] MEDS: PANTOPRAZOLE 40 MG TABLET PO SCH (08:16)
[2020-03-06 08:23] VITALS: RESP 16
--- NOTE | 2020-03-06 10:15 | P.PN ---
Subjective Progress Note Date: 03/06/20 This is a pleasant but confused 85-year-old gentleman who follows with Dr. Guevara in the office. He is a poor historian and is unclear as to why he came to the hospital and actually thinks he is in a train. Most of the HPI was obtained from the chart. He has a history of CAD, ischemic cardiomyopathy with a known ejection fraction of around 20-25%, status post AICD placement, paroxysmal atrial fibrillation, anticoagulated at home on Eliquis, chronic systolic congestive heart failure, hypertension, hyperlipidemia, GI bleed and rheumatoid arthritis. Was recently hospitalized at [facility] with weakness and NSTEMI. Presented to the emergency department apparently after being called by the device nurse at our office and told to go to the emergency room. The patient had apparently been having frequent episodes of PAT with a very rapid ventricular response. Upon further discussion at that time the verbalized that the patient had been sleeping a lot more and was quite weak and unable to get a reading from the blood pressure machine. The patient's currently complaining of feeling weak as well as confused. He is unclear as to whether or not he had shortness of breath at home. Denies any chest discomfort. On admission heart rate were 70s to 90s with a blood pressure of 87/66 and subsequent blood pressure 78/62 with an oxygen saturation of 94% on 2 L nasal cannula. Laboratory values show normal white blood cell count, hemoglobin 11.1, d-dimer 6.06, sodium 132, potassium 4.0, BUN 17, creatinine 0.51, NT proBNP 11,300 and troponins of 0.160, 0.152 and 0.145. Chest x-ray on admission showed suspicion of underlying COPD and pulmonary fibrosis with bilateral infiltrates. Superimposed interstitial pneumonitis or venous congestion in the differential diagnosis correlate clinically. Due to elevated d-dimer CTA of the chest was performed which showed suboptimal study with bilateral right greater than left lower lung pulmonary embolism, no CT evidence for strain, underlying pulmonary artery hypertension noted. Upon examination, patient is resting in bed. Complains of weakness and confusion. When asked about compliance with home medications he states "I haven't been home." 03/05/2020 The patient was seen and examined this morning sitting up in a chair. He overall states he feels fairly well. He denies any current complaints of shortness of breath or chest discomfort. He is less confused today. Echocardiogram with Doppler study showed severe global hypokinesis of the LV, severely impaired LV systolic function with an ejection fraction of less than 20%, severely enlarged RV, severely dilated LA, moderate MR, moderate TR and moderate pulmonary hypertension. Labs today show sodium 135, potassium 4.4, BUN 16 and creatinine of 0.53. 03/06/2020 The patient was seen and examined this morning passing some bleeding bed in no acute distress. He states overall he feels no different than yesterday. He does complain of some shortness of breath with exertion. Denies chest discomfort. Blood pressure is low but stable. Objective - Vital Signs Vital signs: Vital Signs Temp 97.5 F L 03/06/20 08:00 Pulse 51 L 03/06/20 08:00 Resp 16 03/06/20 08:00 BP 94/66 03/06/20 08:00 Pulse Ox 95 03/06/20 08:00 Intake & Output 03/05/20 03/06/20 03/06/20 18:59 06:59 18:59 Intake Total 480 Balance 480 Weight 90 kg Intake: Oral 480 Other: Voiding Method Urinal Urinal # Voids 0 2 - Exam PHYSICAL EXAMINATION: HEENT: Head is atraumatic, normocephalic. Pupils equal, round. Neck is supple. There is no elevated jugular venous pressure. HEART EXAMINATION: Heart sounds regular, S1 and S2 with a systolic murmur. CHEST EXAMINATION: Lungs reveal bibasilar crackles. No chest wall tenderness is noted on palpation or with deep breathing. ABDOMEN: Soft, nontender. Bowel sounds are heard. No organomegaly noted. EXTREMITIES: 1+ peripheral pulses with evidence of trace left lower extremity peripheral edema and no calf tenderness noted. NEUROLOGIC patient is awake, alert and oriented x2. . - Labs CBC & Chem 7: 03/06/20 09:27 03/06/20 09:27 Labs: Microbiology - Last 24 Hours (Table) 03/03/20 18:45 Blood Culture - Preliminary Blood No Growth after 48 hours Assessment and Plan Assessment: #1 progressively worsening weakness and fatigue, somewhat improved #2 ischemic cardiomyopathy with severely impaired LV systolic function with an ejection fraction of <20% #3 chronic systolic congestive heart failure #4 bilateral PEs #5 paroxysmal atrial fibrillation anticoagulated on Eliquis 5 mg by mouth twice a day #6 history of hypertension currently with hypotension #7 hyperlipidemia #8 delerium #9 increasing frequency of PAT with RVR noted on a remote interrogation of the patient's ICD Plan: From cardiology's perspective, medications were reviewed and we will continue the same. We will review labs once they are available. We will continue to follow the patient and provide further recommendations accordingly. CERTIFIED MASTER SAFE TECHNICIAN note has been reviewed, I agree with a documented findings and plan of care. Patient was seen and examined.
[2020-03-06 10:17] LABS: African American GFR (CKD) >90 (>60 ml/min/1.73 sqM); Anion Gap 3 mmol/L; Blood Urea Nitrogen 17 mg/dL (9-20); Calcium 8.3 mg/dL (8.4-10.2); Carbon Dioxide 27 mmol/L (22-30); Chloride 100 mmol/L (98-107); Glucose 135 mg/dL (74-99); Non-African American GFR(CKD) >90 (>60 ml/min/1.73 sqM); Potassium 4.5 mmol/L (3.5-5.1); Sodium 130 mmol/L (137-145)
[2020-03-06 10:22] LABS: Basophils % (A) 0 %; Eosinophils % (A) 1 %; HCT 39.5 % (39.0-53.0); HGB 12.1 gm/dL (13.0-17.5); Hypochromasia Marked; Lymphocytes # (A) 0.6 k/uL (1.0-4.8); Lymphocytes % (A) 12 %; MCH 30.5 pg (25.0-35.0); MCHC 30.7 g/dL (31.0-37.0); MCV 99.2 fL (80.0-100.0); Macrocytosis Slight; Mean Platelet Volume 7.4; Monocytes # (A) 0.2 k/uL (0-1.0); Monocytes % (A) 4 %; Neutrophils % (A) 82 %; Platelet Count 253 k/uL (150-450); RBC 3.98 m/uL (4.30-5.90); RDW 15.2 % (11.5-15.5); WBC 4.9 k/uL (3.8-10.6)
--- NOTE | 2020-03-06 13:06 | P.PN ---
Subjective Progress Note Date: 03/06/20 Principal diagnosis: Shortness of breath, multifactorial, related to chronic systolic CHF, ILD, and bilateral pulmonary embolism this is an 85-year-old white male,, known history of severe cardiomyopathy, ischemic in nature, ejection fraction of 20-25%. Patient had previous AICD placement, and he is known to have history of paroxysmal atrial fibrillation, anticoagulated with Eliquis. Known to have history of chronic systolic congestive heart failure, hypertension, rheumatoid arthritis, recently admitted to [facility] with weakness and non-ST elevation myocardial infarction. Apparently the patient was called by the device nurse at [facility] telling him that the AICD was noted to have multiple discharges, and he needs to go to the emergency room. Upon presentation to the ER, patient was noted to be confused, weak, and could not give an adequate history. But apparently his heart rate was normal and regular, blood pressure was low, he was on 2 L nasal cannula, and his d-dimer was a bit elevated. His BNP level was elevated. Troponins were also elevated. Chest x-ray showed COPD, and bibasilar interstitial lung disease. Possible congestive heart failure and interstitial lung disease. CT angiogram of the chest was done and it was positive for bilateral pulmonary embolism. Patient was placed on heparin, and we were asked to see him on consultation. I reviewed the chest x-ray and the CT of the chest., and I agree that the patient does have interstitial lung disease, possibly some component of congestive heart failure, and bilateral pulmonary embolism. On 03/05/2020 patient seen in follow-up on selective care unit, he is awake and alert, on 2 liters of oxygen with pulse ox of 95%, he sitting up in the recliner he denies acute distress, denies any shortness of breath, denies any chest pain. Lung sounds are clear, diminished at the bases. Patient's home dose Eliquis was increased to 5 mg twice daily for acute bilateral pulmonary emboli. Hemodynamically he is stable. Echocardiogram has been reviewed showing severely impaired LV function with an EF of less than 20%, moderate MR, moderate TR, moderate pulmonary hypertension. On 03/06/2020 patient seen in follow-up on selective care unit. He is resting comfortably in bed, appears to be in no acute distress, just generally weak. Denies any worsening shortness of breath, his pulse ox is 94% on 2 L, no complaints of chest pain, no hemoptysis, his Eliquis has been increased to 5 mg twice daily, he has had no acute events overnight, he is chronically impaired left ventricular systolic function with EF of less than 20%. No cough, no shortness of breath, no lower extremity edema. Vitals have been stable. Patient is participating with physical therapy, however he fatigues easily with standing activities, requires frequent rest periods, however the plan is for the patient to return home after discharge Objective - Vital Signs Vital signs: Vital Signs Temp 97.5 F L 03/06/20 08:00 Pulse 78 03/06/20 11:56 Resp 16 03/06/20 11:56 BP 89/56 03/06/20 11:56 Pulse Ox 94 L 03/06/20 11:56 Intake & Output 03/05/20 03/06/20 03/06/20 18:59 06:59 18:59 Intake Total 480 Balance 480 Weight 90 kg Intake: Oral 480 Other: Voiding Method Urinal Urinal Urinal # Voids 0 2 - Exam GENERAL EXAM: Alert, 85-year-old white male, frail looking, on 2 L of oxygen the pulse ox of 95%, comfortable in no apparent distress. HEAD: Normocephalic/atraumatic. EYES: Normal reaction of pupils, equal size. Conjunctiva pink, sclera white. NOSE: Clear with pink turbinates. THROAT: No erythema or exudates. NECK: No masses, no JVD, no thyroid enlargement, no adenopathy. CHEST: No chest wall deformity. Symmetrical expansion. LUNGS: Equal air entry with no crackles, wheeze, rhonchi or dullness. CVS: Regular rate and rhythm, normal S1 and S2, no gallops, no murmurs, no rubs ABDOMEN: Soft, nontender. No hepatosplenomegaly, normal bowel sounds, no guarding or rigidity. EXTREMITIES: No clubbing, no edema, no cyanosis, 2+ pulses and upper and lower extremities. MUSCULOSKELETAL: Muscle strength and tone normal. SPINE: No scoliosis or deformity SKIN: No rashes CENTRAL NERVOUS SYSTEM: Alert and oriented -3. No focal deficits, tone is normal in all 4 extremities. PSYCHIATRIC: Alert and oriented -3. Appropriate affect. Intact judgment and insight. - Labs CBC & Chem 7: 03/06/20 09:27 03/06/20 09:27 Labs: Abnormal Lab Results - Last 24 Hours (Table) 03/06/20 03/06/20 Range/Units 09:27 09:27 RBC 3.98 L (4.30-5.90) m/uL Hgb 12.1 L (13.0-17.5) gm/dL MCHC 30.7 L (31.0-37.0) g/dL Lymphocytes # 0.6 L (1.0-4.8) k/uL Sodium 130 L (137-145) mmol/L Creatinine 0.50 L (0.66-1.25) mg/dL Glucose 135 H (74-99) mg/dL Calcium 8.3 L (8.4-10.2) mg/dL Microbiology - Last 24 Hours (Table) 03/03/20 18:45 Blood Culture - Preliminary Blood No Growth after 48 hours Assessment and Plan Plan: Assessment: 1. Shortness of breath, multifactorial, mostly secondary to chronic systolic congestive heart failure, interstitial lung disease, most likely secondary to rheumatoid lungs, and now bilateral pulmonary embolism. 2. Chronic systolic congestive heart failure secondary to ischemic cardiomyopathy 3. Bilateral pulmonary embolism. 4. Paroxysmal atrial fibrillation, maintained on Eliquis at 2.5 mg twice a day. 5. Benign essential hypertension. 6. Dyslipidemia. 7. History of asbestosis. 8. History of rheumatoid arthritis, maintained on Enbrel and Arava on outpatient basis. 9. History of AICD placement. 10. Progressive worsening weakness and fatigue secondary to above. Plan: From pulmonary perspective patient is stable for discharge home once cleared by cardiology. No acute events overnight, vitals have been stable, no worsening shortness of breath, increase activity as tolerated, physical therapy is working with the patient. No complaints of worsening shortness of breath or chest pain, however generally patient is very weak. Per the social work note the plan is to return the patient home instead of rehab. I performed a history & physical examination of the patient and discussed their management with my nurse practitioner, Yoselin Key. I reviewed the nurse practitioner's note and agree with the documented findings and plan of care. Lung sounds are positive for clear breath sounds. The findings and the impression was discussed with the patient. I attest to the documentation by the nurse practitioner. Time with Patient: Less than 30
[2020-03-06 15:14] VITALS: BMI 25.4
--- NOTE | 2020-03-06 17:05 | P.PN ---
Subjective Progress Note Date: 03/06/20 Levi Mohr, is an 85-year-old male who presented to [facility] emergency room with a chief complaint of shortness of breath patient stated that he has been short of breath for 2 days prior to admission, on the day of admission he was contacted by his safety lead Dr. Guevara and was told to go to emergency room due to firing of pacemaker, ICD device. Patient was evaluated in the emergency room and was admitted to telemetry floor, troponin level were slightly elevated, d-dimer level was significantly elevated at 6.06. Patient was started on IV heparin, computed tomography scan angiogram of the chest was ordered, cardiology consultation was requested. on 03/04/2020 patient was seen and examined on the medical floor he is alert and oriented 3 in no apparent distress, he is complaining of joint pain otherwise he denies any complaint at this time, there is no fever or chills no headache or dizziness no chest pain no shortness of breath at rest but some shortness of breath while walking, no cough no nausea or vomiting no abdominal pain no diarrhea no burning with urination no frequency or urgency and no hematuria On 03/05/2020 patient was seen and examined on the medical floor he is alert and oriented 3 in no distress there is no fever or chills no headache or dizziness no chest pain no cough, he is still having shortness of breath with any activity, no nausea or vomiting no abdominal pain no diarrhea no burning with urination no frequency or urgency no hematuria On 03/06/2020 patient was seen and examined on the medical floor he is alert and oriented 3 in no distress there is no fever or chills no headache or dizziness no chest pain his shortness of breath has improved significantly there is no cough no nausea or vomiting no abdominal pain no diarrhea no burning with urination no frequency or urgency and no hematuria he denies any blood in the stools Objective - Vital Signs Vital signs: Vital Signs Temp 97.5 F L 03/06/20 08:00 Pulse 78 03/06/20 11:56 Resp 16 03/06/20 11:56 BP 89/56 03/06/20 11:56 Pulse Ox 94 L 03/06/20 11:56 Intake & Output 03/05/20 03/06/20 03/06/20 18:59 06:59 18:59 Intake Total 480 Balance 480 Weight 90 kg Intake: Oral 480 Other: Voiding Method Urinal Urinal Urinal # Voids 0 2 - Exam In general patient is alert and oriented 3 in no apparent distress HEENT head normocephalic and atraumatic Neck is supple no JVD no goiter no lymphadenopathy Chest exam reveals a few scattered rhonchi no wheezing Cardiac exam reveals regular heart sounds no murmurs Abdomen is soft nontender no organomegaly was normal bowel sounds Extremity exam reveals no edema no cyanosis or clubbing Neurological examination reveals no gross focal deficit - Labs CBC & Chem 7: 03/06/20 09:27 03/06/20 09:27 Labs: Abnormal Lab Results - Last 24 Hours (Table) 03/06/20 03/06/20 Range/Units 09:27 09:27 RBC 3.98 L (4.30-5.90) m/uL Hgb 12.1 L (13.0-17.5) gm/dL MCHC 30.7 L (31.0-37.0) g/dL Lymphocytes # 0.6 L (1.0-4.8) k/uL Sodium 130 L (137-145) mmol/L Creatinine 0.50 L (0.66-1.25) mg/dL Glucose 135 H (74-99) mg/dL Calcium 8.3 L (8.4-10.2) mg/dL Microbiology - Last 24 Hours (Table) 03/03/20 18:45 Blood Culture - Preliminary Blood No Growth after 48 hours Assessment and Plan Plan: 1. Worsening shortness of breath, BNP is elevated at 11,300, chest x-ray reveals venous congestion versus interstitial pneumonitis, 2. Elevated d-dimer patient was started on IV heparin pulmonary consultation was requested 3. Underlying history of rheumatoid arthritis 4. Possible firing of ICD device, awaiting device report. 5. Underlying history of coronary artery disease followed by Dr. Guevara 6. Underlying history of congestive heart failure with cardiomyopathy At this time patient is admitted to telemetry floor cardiology and pulmonary consultation were requested CT angiogram of the chest, revealed evidence of bilateral pulmonary edema, patient was started yesterday on IV heparin, then was switched to oral Levaquin as 5 mg by mouth twice daily, will monitor closely. cardiology and pulmonaryinput reviewed
[2020-03-06] MEDS: ATORVASTATIN 20 MG TAB PO SCH (20:44)
[2020-03-07] MEDS: HYDROcodone/APAP 7.5-325MG 1 EACH TAB PO SCH (07:39)
[2020-03-07] MEDS: MULTIVITAMINS, THERA 1 EACH TAB PO SCH (07:40)
[2020-03-07] MEDS: CHOLECALCIFEROL 1,000 UNIT TAB PO SCH (07:40)
[2020-03-07] MEDS: ASPIRIN 81 MG PO SCH (07:40)
[2020-03-07] MEDS: APIXABAN 5 MG TAB PO SCH (07:40)
[2020-03-07] MEDS: METOPROLOL TARTRATE 25 MG TAB PO SCH (07:40)
[2020-03-07] MEDS: PANTOPRAZOLE 40 MG TABLET PO SCH (07:40)
[2020-03-07 11:09] VITALS: BP 88/63; PULSE 76; TEMP 97.7
--- NOTE | 2020-03-07 12:47 | P.PN ---
Subjective Progress Note Date: 03/07/20 This is a pleasant but confused 85-year-old gentleman who follows with Dr. Guevara in the office. He is a poor historian and is unclear as to why he came to the hospital and actually thinks he is in a train. Most of the HPI was obtained from the chart. He has a history of CAD, ischemic cardiomyopathy with a known ejection fraction of around 20-25%, status post AICD placement, paroxysmal atrial fibrillation, anticoagulated at home on Eliquis, chronic systolic congestive heart failure, hypertension, hyperlipidemia, GI bleed and rheumatoid arthritis. Was recently hospitalized at [facility] with weakness and NSTEMI. Presented to the emergency department apparently after being called by the device nurse at our office and told to go to the emergency room. The patient had apparently been having frequent episodes of PAT with a very rapid ventricular response. Upon further discussion at that time the verbalized that the patient had been sleeping a lot more and was quite weak and unable to get a reading from the blood pressure machine. The patient's currently complaining of feeling weak as well as confused. He is unclear as to whether or not he had shortness of breath at home. Denies any chest discomfort. On admission heart rate were 70s to 90s with a blood pressure of 87/66 and subsequent blood pressure 78/62 with an oxygen saturation of 94% on 2 L nasal cannula. Laboratory values show normal white blood cell count, hemoglobin 11.1, d-dimer 6.06, sodium 132, potassium 4.0, BUN 17, creatinine 0.51, NT proBNP 11,300 and troponins of 0.160, 0.152 and 0.145. Chest x-ray on admission showed suspicion of underlying COPD and pulmonary fibrosis with bilateral infiltrates. Superimposed interstitial pneumonitis or venous congestion in the differential diagnosis correlate clinically. Due to elevated d-dimer CTA of the chest was performed which showed suboptimal study with bilateral right greater than left lower lung pulmonary embolism, no CT evidence for strain, underlying pulmonary artery hypertension noted. Upon examination, patient is resting in bed. Complains of weakness and confusion. When asked about compliance with home medications he states "I haven't been home." 03/05/2020 The patient was seen and examined this morning sitting up in a chair. He overall states he feels fairly well. He denies any current complaints of shortness of breath or chest discomfort. He is less confused today. Echocardiogram with Doppler study showed severe global hypokinesis of the LV, severely impaired LV systolic function with an ejection fraction of less than 20%, severely enlarged RV, severely dilated LA, moderate MR, moderate TR and moderate pulmonary hypertension. Labs today show sodium 135, potassium 4.4, BUN 16 and creatinine of 0.53. 03/06/2020 The patient was seen and examined this morning passing some bleeding bed in no acute distress. He states overall he feels no different than yesterday. He does complain of some shortness of breath with exertion. Denies chest discomfort. Blood pressure is low but stable. 03/07/2020 Patient was seen and examined resting comfortably in bed. Blood pressure has been low but patient seems to be asymptomatic. He has not been up out of bed much this morning. He is quite weak. He is overall feeling fairly well though. He denies any current complaints of chest discomfort or shortness of breath. Objective - Vital Signs Vital signs: Vital Signs Temp 97.7 F 03/07/20 11:04 Pulse 76 03/07/20 11:04 Resp 16 03/07/20 11:04 BP 88/63 03/07/20 11:04 Pulse Ox 94 L 03/07/20 11:04 Intake & Output 03/06/20 03/07/20 03/07/20 18:59 06:59 18:59 Intake Total 236 10 100 Output Total 1 Balance 235 10 100 Weight 90 kg 91.3 kg Intake: IV 10 100 .9 10 100 Oral 236 Output: Urine 1 Other: Voiding Method Urinal Urinal Bedside Commode Diaper # Voids 2 - Exam PHYSICAL EXAMINATION: HEENT: Head is atraumatic, normocephalic. Pupils equal, round. Neck is supple. There is no elevated jugular venous pressure. HEART EXAMINATION: Heart sounds regular, S1 and S2 with a systolic murmur. CHEST EXAMINATION: Lungs reveal bibasilar crackles. No chest wall tenderness is noted on palpation or with deep breathing. ABDOMEN: Soft, nontender. Bowel sounds are heard. No organomegaly noted. EXTREMITIES: 1+ peripheral pulses with evidence of trace left lower extremity peripheral edema and no calf tenderness noted. NEUROLOGIC patient is awake, alert and oriented x2. . - Labs CBC & Chem 7: 03/06/20 09:27 03/06/20 09:27 Labs: Microbiology - Last 24 Hours (Table) 03/03/20 18:45 Blood Culture - Preliminary Blood No Growth after 72 hours Assessment and Plan Assessment: #1 progressively worsening weakness and fatigue, somewhat improved #2 ischemic cardiomyopathy with severely impaired LV systolic function with an ejection fraction of <20% #3 chronic systolic congestive heart failure #4 bilateral PEs #5 paroxysmal atrial fibrillation anticoagulated on Eliquis 5 mg by mouth twice a day #6 history of hypertension currently with hypotension #7 hyperlipidemia #8 delerium #9 increasing frequency of PAT with RVR noted on a remote interrogation of the patient's ICD, NO ICD DISCHARGES Plan: From cardiology's perspective, medications were reviewed and we will continue the same. We will follow the patient at this time from an as-needed basis. Please do not hesitate to contact us with questions. BOX PRINTER note has been reviewed, I agree with a documented findings and plan of care. Patient was seen and examined.
--- NOTE | 2020-03-07 14:54 | P.DS ---
Providers Date of admission: 03/03/20 13:29 Expected date of discharge: 03/07/20 Attending physician: Faith Gray Consults: 03/03/20 13:30 Consult Physician Urgent Consulting Provider: [facility] Consult Reason/Comments: NSTEMI, acute dysrhythmia Do you want consulting provider notified?: Yes 03/03/20 19:52 Consult Physician Routine Consulting Provider: Tita Almendarez Consult Reason/Comments: shortness of breath Do you want consulting provider notified?: Yes 03/04/20 15:51 Consult Physician Routine Consulting Provider: Lefty Orlando Consult Reason/Comments: possible rehab admission Do you want consulting provider notified?: Yes Primary care physician: [facility] [place] [facility] Course: Diagnosis on discharge: 1. Worsening shortness of breath, BNP is elevated at 11,300, chest x-ray reveals venous congestion versus interstitial pneumonitis, 2. Elevated d-dimer patient was started on IV heparin pulmonary consultation was requested 3. Underlying history of rheumatoid arthritis 4. Possible firing of ICD device, awaiting device report. 5. Underlying history of coronary artery disease followed by Dr. Guevara 6. Underlying history of congestive heart failure with cardiomyopathy Hospital course: eLvi Mohr, is an 85-year-old male who presented to [facility] emergency room with a chief complaint of shortness of breath patient stated that he has been short of breath for 2 days prior to admission, on the day of admission he was contacted by his searchlight operator Dr. Guevara and was told to go to emergency room due to firing of pacemaker, ICD device. Patient was evaluated in the emergency room and was admitted to telemetry floor, troponin level were slightly elevated, d-dimer level was significantly elevated at 6.06. Patient was started on IV heparin, computed tomography scan angiogram of the chest was ordered, cardiology consultation was requested. on 03/04/2020 patient was seen and examined on the medical floor he is alert and oriented 3 in no apparent distress, he is complaining of joint pain otherwise he denies any complaint at this time, there is no fever or chills no headache or dizziness no chest pain no shortness of breath at rest but some shortness of breath while walking, no cough no nausea or vomiting no abdominal pain no diarrhea no burning with urination no frequency or urgency and no hematuria On 03/05/2020 patient was seen and examined on the medical floor he is alert and oriented 3 in no distress there is no fever or chills no headache or dizziness no chest pain no cough, he is still having shortness of breath with any activity, no nausea or vomiting no abdominal pain no diarrhea no burning with urination no frequency or urgency no hematuria On 03/06/2020 patient was seen and examined on the medical floor he is alert and oriented 3 in no distress there is no fever or chills no headache or dizziness no chest pain his shortness of breath has improved significantly there is no cough no nausea or vomiting no abdominal pain no diarrhea no burning with urination no frequency or urgency and no hematuria he denies any blood in the stools On 03/07/2020 patient was seen and examined on the medical floor he is alert and oriented 3 he is feeling more tired than requiring more help to stand up and walk, I spoke in length with his daughter Siria over the form at this time patient and family are refusing any rehab at a [facility] they want patient to go back home Will arrange for transportation and home care with physical therapy at home. During this admission dose of Eliquis was increased to 5 mg twice daily, Coreg was discontinued and metoprolol 25 mg by mouth twice a day was added to her regimen, will follow in the office in the next 1-2 weeks Patient Condition at Discharge: Stable Plan - Discharge Summary Discharge Rx Participant: No New Discharge Prescriptions: New Apixaban [Eliquis] 5 mg PO BID tab Metoprolol Tartrate [Lopressor] 25 mg PO BID tab Continue Cholecalciferol [Vitamin D3 (25 Mcg = 1000 Iu)] 1,000 unit PO DAILY Esomeprazole Magnesium [NexIUM] 40 mg PO DAILY [place]-3 Fatty Acids/Fish Oil [Fish Oil 1,000 mg Softgel] 1 cap PO DAILY Multivitamins, Thera [Multivitamin (formulary)] 1 tab PO DAILY Etanercept [Enbrel] 50 mg SQ REDDY Aspirin EC [Ecotrin Low Dose] 81 mg PO DAILY Furosemide [Lasix] 20 mg PO DAILY HYDROcodone/APAP 7.5-325MG [[place] 7.5-325] 1 tab PO BID PRN PRN Reason: Pain Discontinued Simvastatin [Zocor] 40 mg PO HS carvediloL [Coreg] 6.25 mg PO BID Apixaban [Eliquis] 2.5 mg PO DAILY Discharge Medication List Cholecalciferol [Vitamin D3 (25 Mcg = 1000 Iu)] 1,000 unit PO DAILY 06/15/15 [History] Esomeprazole Magnesium [NexIUM] 40 mg PO DAILY 06/15/15 [History] Etanercept [Enbrel] 50 mg SQ REDDY 06/15/15 [History] Multivitamins, Thera [Multivitamin (formulary)] 1 tab PO DAILY 06/15/15 [History] [place]-3 Fatty Acids/Fish Oil [Fish Oil 1,000 mg Softgel] 1 cap PO DAILY 06/15/15 [History] Aspirin EC [Ecotrin Low Dose] 81 mg PO DAILY 01/03/17 [History] Furosemide [Lasix] 20 mg PO DAILY 01/03/17 [History] HYDROcodone/APAP 7.5-325MG [[place] 7.5-325] 1 tab PO BID PRN 03/03/20 [History] Apixaban [Eliquis] 5 mg PO BID tab 03/07/20 [Rx] Metoprolol Tartrate [Lopressor] 25 mg PO BID tab 03/07/20 [Rx] Follow up Appointment(s)/Referral(s): [facility], [NON-STAFF] - Faith Gray MD [Primary Care Provider] - 1-2 days Activity/Diet/Wound Care/Special Instructions: Patient will require a hospital bed at discharge for orthopnea from CHF. Patient will require a bedside commode at time of discharge secondary to being room confined due to shortness of breath due to CHF Patient will require a wheelchair at time of discharge to assist with ADLs secondary to CHF
[2020-03-09] MEDS ORDERED: ETANERCEPT 50 MG SQ SCH (09:00)
--- NOTE | 2020-03-10 08:12 | CDI ---
Documentation Clarification Form Date: 03/10/20 From: Heidi Powers CCS Phone: If you have a question about this query, please contact Lissy Adam, Belt Loop Machine Operator at [phone] between 8am and 5pm. Admit Date: 03/03/20 Discharge Date:03/07/20 Patient Name: Levi Mohr Visit Number: [id number] ATTENTION: The Clinical Documentation Specialists (CDI) and [facility] Coding Staff appreciate your assistance in clarifying documentation. Please respond to the clarification below the line at the bottom and electronically sign. The CDI & [facility] Coding staff will review the response and follow-up if needed. Please note: Queries are made part of the Legal Health Record. If you have any questions, please contact the author of this message via ITS. Dear Dr. Gray, A pressure ulcer was documented in the Wound Care and Dietary Consult notes. History/Risk Factors: [place], CAD, Weakness, CHF, CAD, HTN, PE Clinical Indicators: Pressure ulcer Stage II Coccyx Location: Coccyx Wound description: Pressure ulcer stage II Treatment: Dressing ordered Consults: Wound Care 03/03 In your professional opinion, can you please clarify if you agree with the diagnosis documented by Wound Care and Dietary? Stage 2 Pressure/Decubitus Ulcer/ Coccyx (POA) Other Pressure Ulcer No Pressure Ulcer Present Other condition, please specify Unable to determine Pressure ulcers stage II MTDD
--- NOTE | 2020-03-10 08:30 | CDI ---
Documentation Clarification Form Date: 03/10/20 From: Heidi Powers CCS Phone: If you have a question about this query, please contact Lissy Adam, Steel Sampler at [phone] between 8am and 5pm. Admit Date: 03/03/20 Discharge Date:03/07/20 Patient Name: Levi Mohr Visit Number: [id number] ATTENTION: The Clinical Documentation Specialists (CDI) and [facility] Coding Staff appreciate your assistance in clarifying documentation. Please respond to the clarification below the line at the bottom and electronically sign. The CDI & [facility] Coding staff will review the response and follow-up if needed. Please note: Queries are made part of the Legal Health Record. If you have any questions, please contact the author of this message via ITS. Dear Dr. Gray, Confusion and delirium are documented in the Consult, PNs. Consult 03/04 documents: Upon presentation to the ER, patient was noted to be confused, weak, and could not give an adequate history. Assessment : #8 Delirium History/Risk Factors: PE, CHF, Cachetic, PHTN, RA/Lung, Hypotension, CAD, HTN, CA, ALEXUS Clinical Indicators: Confusion/delirium Treatment: Monitor, OT, D/C with [facility] Consults: Ismael Almendarez In your professional opinion, can you please clarify confusion/delirium, if known? Confused Delirium Dementia (specify type if known) Metabolic Encephalopathy Encephalopathy other Other, please specify Unable to determine Delirium MTDD
--- NOTE | 2020-03-10 08:39 | CDI ---
Documentation Clarification Form Date: 03/10/20 From: Heidi Powers CCS Phone: If you have a question about this query, please contact Lissy Adam, Lab Coordinator at [phone] between 8am and 5pm. Admit Date: 03/03/20 Discharge Date:03/07/20 Patient Name: Levi Mohr Visit Number: [id number] ATTENTION: The Clinical Documentation Specialists (CDI) and [facility] Coding Staff appreciate your assistance in clarifying documentation. Please respond to the clarification below the line at the bottom and electronically sign. The CDI & [facility] Coding staff will review the response and follow-up if needed. Please note: Queries are made part of the Legal Health Record. If you have any questions, please contact the author of this message via ITS. Dear Dr. Gray, ED notes document this patient is cachetic in appearance. History/Risk Factors: [place], CAD, CHF, HTN, PHTN, Hypotension, PE, ALEXUS Clinical Indicators: Cachetic, Increased nutrient needs, Progressively worsening weakness Labs: Albumin 2.0, Total Protein 4.8 Current BMI: 25.7 Treatment: Dietary Consult: Increased metabolic demands for wound healing, improve skin integrity 03/04 Supplements: Enlive TID for additional Kcal, protein In your professional opinion, can you please clarify if these findings signify one of the following conditions? Mild Protein-Calorie Malnutrition Moderate Protein-Calorie Malnutrition Severe Protein-Calorie Malnutrition Malnutrition, unspecified Cachetic, no nutrition diagnosis Other condition, please specify Unable to determine Severe protein calorie malnutrition MTDD
--- NOTE | 2020-03-10 08:53 | CDI ---
Documentation Clarification Form Date: 03/10/20 From: Heidi Powers CCS Phone: If you have a question about this query, please contact Lissy Adam, Floor Worker [place] at [phone] between 8am and 5pm. Admit Date: 03/03/20 Discharge Date:03/07/20 Patient Name: Levi Mohr Visit Number: [id number] ATTENTION: The Clinical Documentation Specialists (CDI) and [facility] Coding Staff appreciate your assistance in clarifying documentation. Please respond to the clarification below the line at the bottom and electronically sign. The CDI & [facility] Coding staff will review the response and follow-up if needed. Please note: Queries are made part of the Legal Health Record. If you have any questions, please contact the author of this message via ITS. Dear Dr. Gray, This patient is admitted with acute respiratory distress per 03/04 Consult note. ED documents RR 25, 26, 21 H&P documents: presented to [facility] emergency room with a chief complaint of shortness of breath patient stated that he has been short of breath for 2 days prior to admission Consult 03/04 documents: Shortness of breath, multifactorial, mostly secondary to chronic systolic congestive heart failure, interstitial lung disease, most likely secondary to rheumatoid lungs, and now bilateral pulmonary embolism. History/Risk Factors: PE, [place], CHF, HTN, Interstitial pneumonitis, PHTN, AFIB, Asbestosis, RA/Lung Clinical Indicators: Acute respiratory distress Vital Signs: BP 78/62, RR 25, DE 91, O2 Sat 94 Treatment: Titrate oxygen to keep O2 saturation above 90% Oxygen: Nasal Cannula 2 lpm Consult: Tanesha In order to accurately reflect the severity of condition, please indicate if the above clinical findings and treatment signify a respiratory condition, such as: Acute Respiratory Distress Respiratory Failure, please specify -Acute -Acute on Chronic -Chronic Further specify (if known): -With hypercapnia? -With hypoxia? Other, please specify Unable to determine Acute hypoxic respiratory failure due to bilateral pulmonary embolism requiring oxygen MTDD
== END 2020-03-07 17:25 | disposition home health service (06) | DRG 175 ==
LOC: EC 11:18 → 3SCARD 13:29
PROVIDERS: ADMIT Internal Medicine; ATTEND Internal Medicine
DX: I26.99 Other pulmonary embolism without acute cor pulmonale (principal); I21.4 Non-ST elevation (NSTEMI) myocardial infarction; J96.01 Acute respiratory failure with hypoxia; E43 Unspecified severe protein-calorie malnutrition; R64 Cachexia; I50.22 Chronic systolic (congestive) heart failure; T82.198A Other mechanical complication of other cardiac electronic device, initial encounter; J84.89 Other specified interstitial pulmonary diseases; D89.9 Disorder involving the immune mechanism, unspecified; I27.22 Pulmonary hypertension due to left heart disease; L89.152 Pressure ulcer of sacral region, stage 2; M05.10 Rheumatoid lung disease with rheumatoid arthritis of unspecified site; I95.9 Hypotension, unspecified; I11.0 Hypertensive heart disease with heart failure; J44.9 Chronic obstructive pulmonary disease, unspecified; I48.0 Paroxysmal atrial fibrillation; J61 Pneumoconiosis due to asbestos and other mineral fibers; I08.1 Rheumatic disorders of both mitral and tricuspid valves; M19.90 Unspecified osteoarthritis, unspecified site; I25.10 Atherosclerotic heart disease of native coronary artery without angina pectoris; E78.5 Hyperlipidemia, unspecified; I25.5 Ischemic cardiomyopathy; I83.90 Asymptomatic varicose veins of unspecified lower extremity; R41.0 Disorientation, unspecified; I25.2 Old myocardial infarction; Z68.25 Body mass index [BMI] 25.0-25.9, adult; Z71.3 Dietary counseling and surveillance; Z79.01 Long term (current) use of anticoagulants; Z79.82 Long term (current) use of aspirin; Z79.899 Other long term (current) drug therapy; Z95.810 Presence of automatic (implantable) cardiac defibrillator; Z87.19 Personal history of other diseases of the digestive system; Z95.5 Presence of coronary angioplasty implant and graft; Z98.890 Other specified postprocedural states; Z88.0 Allergy status to penicillin; Z80.41 Family history of malignant neoplasm of ovary; Z80.1 Family history of malignant neoplasm of trachea, bronchus and lung; Z82.49 Family history of ischemic heart disease and other diseases of the circulatory system
CPT/HCPCS: 36415; 71046; 71275; 80048; 80053; 83605; 83735; 83880; 84484; 85025; 85379; 85610; 85730; 87040; 93005; 93306; 96360; 96361; 99285